=== PATIENT | male | born 1970 | race Caucasian/White ===

== ENCOUNTER 2016-10-11 14:44 | Inpatient (IN) | payer OTHER ==
[2016-10-12] MEDS ORDERED: ALPRAZolam 0.25 MG TAB ONE (07:07)
[2016-10-12 07:11] LABS: Glucose,Whole Blood 188 mg/dL (75-99)
[2016-10-12] MEDS ORDERED: ASPIRIN 325 MG TAB PO ONE (07:30)
[2016-10-12] MEDS ORDERED: ALPRAZolam 0.25 MG TAB PO PRN (07:33)
[2016-10-12] MEDS ORDERED: NITROGLYCERIN SL TABS 0.4 MG TAB SUBLINGUAL PRN ×2 (07:33→09:33)
[2016-10-12] MEDS ORDERED: ALPRAZolam 0.5 MG TAB PO PRN (07:33)
[2016-10-12] MEDS ORDERED: SODIUM CHLORIDE 0.9% 1,000 ML in EMPTY BAG 1 BAG IV ONE (07:33)
[2016-10-12] MEDS ORDERED: ASPIRIN 325 MG TAB PO STA (07:35)
[2016-10-12] MEDS ORDERED: ATORVASTATIN 80 MG TAB PO STA (07:36)
[2016-10-12] MEDS ORDERED: LISINOPRIL 20 MG TAB PO STA (08:11)
[2016-10-12] MEDS ORDERED: diphenhydrAMINE 50 MG/ML 1 ML VIAL IVP ONE (08:27)
[2016-10-12] MEDS ORDERED: fentaNYL (PF) 50 MCG/ML 2 ML AMP IV ONE (08:28)
[2016-10-12] MEDS ORDERED: LIDOCAINE 2% INJ 20 MG/ML SQ ONE (08:29)
[2016-10-12] MEDS ORDERED: VERAPAMIL SYRINGE (5 MG/10 ML) INTRAARTER ONE (08:30)
[2016-10-12] MEDS ORDERED: MIDAZOLAM 2 MG/2 ML VIAL IV ONE (08:35)
[2016-10-12] MEDS ORDERED: BIVALIRUDIN BOLUS 250 MG/50 ML IV ONE (08:47)
[2016-10-12] MEDS ORDERED: BIVALIRUDIN 250 MG in SODIUM CHLORIDE 0.9% 50 ML IV ONE (08:48)
[2016-10-12] MEDS ORDERED: PRASUGREL 10 MG TAB PO ONE (08:52)
[2016-10-12] MEDS: NITROGLYCERIN 1000MCG/10ML SYRINGE INTRACORON ONE ×2 (08:55→09:12)
[2016-10-12] MEDS ORDERED: IOHEXOL 350 MG/ML 100 ML BOTTLE INJ ONE (09:32)
[2016-10-12] MEDS ORDERED: ATROPINE SULFATE 0.1 MG/ML 10ML SYRINGE IV PRN (09:33)
[2016-10-12] MEDS ORDERED: MAG HYDROX/AL HYDROX/SIMETH 30 ML CUP PO PRN (09:33)
[2016-10-12] MEDS ORDERED: ZOLPIDEM 5 MG TAB PO PRN (09:33)
[2016-10-12] MEDS ORDERED: RX INFO: IV CONTRAST WAS GIVEN 1 EACH MISC MISCELLANE PRN (09:33)
[2016-10-12] MEDS ORDERED: SODIUM CHLORIDE 0.9% 1,000 ML IV SCH (09:45)
--- NOTE | 2016-10-12 10:08 | PTCA ---
DATE OF SERVICE: Mr. Mathews is a 46-year-old male with a history of hypertension, hyperlipidemia, diabetes mellitus, chronic tobacco use and strong family history of coronary artery disease, who presented with symptoms of new onset unstable angina, underwent cardiac catheterization, was found to have critical stenosis involving the proximal LAD and mid right coronary artery. In view of that, recommendation was made regarding angioplasty and stenting. The procedure as well as risks and complications were discussed with the patient, who is in full understanding and agreement. PROCEDURE: A 6 [place] Citizen FL 3.5 guiding catheter introduced into the system after cannulating the left main, a 0.014 Advanced medium-weight J-wire was advanced across the lesion, positioned distally, then a 2.5 x 15 mm trek balloon was advanced, one inflation at 8 atmospheres was done. Following that, the balloon was removed and a 3.5 x 15 mm Xience Alpine stent was deployed, postdilated at 14 atmospheres. After the last inflation, after appropriate wait, the balloon and guidewire were withdrawn back in the guiding catheter. Images were obtained and repeated. Those images reveal stable successful stenting. At that point, the guiding catheter, the balloon and the guidewire were removed, and a 6 [place] Citizen 4 Bend FR guiding catheter introduced into the system after cannulating the right coronary ostium. A 0.014 Advanced medium-weight J-wire was advanced across the lesion, positioned distally, then a 2.5 x 12 mm trek balloon was advanced, one inflation at 10 atmospheres was done. Following that, the balloon was removed, and a 3.0 x 15 mm Xience Alpine stent was deployed, postdilated to 16 atmospheres. After the last inflation, after appropriate wait, the balloon and the guidewire were withdrawn back into the guiding catheter. Images were obtained and repeated. Those images reveal stable successful stenting. At that point, the guiding catheter, the balloon and the guidewire were removed, the sheath was removed. Hemostasis was obtained with deployment of a TR band. There were no immediate complication. Patient is returned to his room in stable condition. Of note, the patient received Angiomax per protocol as well as oral loading dose of Effient. He had chest pain and EKG changes with the inflation of the LAD that resolved. RESULTS: 1. Successful stenting of the proximal LAD with reduction in stenosis from 99% to 0%. 2. Successful stenting of the mid-right coronary artery with reduction in stenosis from 90% to 0%. RECOMMENDATION: Patient will be continued on aspirin, Effient, beta ambar, DONTE inhibitor and statin. The importance of dual antiplatelet treatment as well as smoking cessation was discussed with the patient and his family who are in full understanding and agreement. The duration of procedure is 60 minutes. MTDD
--- NOTE | 2016-10-12 10:11 | LTR ---
October 12, 2016 RE: BisiLita Dear Dr. Vazquez; I had the pleasure to perform cardiac catheterization and coronary angioplasty and stenting on Mr. Mathews at [facility] on October 12, 2016 and a full copy of the procedure note will be forwarded to you. In brief, he was found to have critical stenosis involving the proximal LAD and the mid-right coronary artery and he underwent successful stenting of both vessels using a drug-eluting stent. I am hopeful that this procedure will stabilize his status and I would recommend to continue dual antiplatelet treatment for at least one year uninterrupted. I will keep you updated on his progress. Thank you again for allowing me to participate in this patient's care. Please feel free to call for any questions. Sincerely yours, CHASE COUCH MD
--- NOTE | 2016-10-12 10:18 | CC ---
DATE OF SERVICE: Mr. Mathews is a 46-year-old male with known history of hypertension, hyperlipidemia, diabetes mellitus, chronic tobacco use, and a strong family history of coronary artery disease, who presented to [facility] with progressive symptoms of exertional chest discomfort. In view of that, recommendation was made regarding cardiac catheterization. The procedure as well as risks and complications were discussed with the patient who is in full understanding and agreement. PROCEDURE: The patient was brought to the lab scientist in a fasting semi-sedated state after receiving fentanyl with Benadryl and achieved moderate conscious sedated state, using Xylocaine anesthesia and Seldinger technique, a 6 [place] sheath was introduced in the right radial artery. Selective right and left coronary angiography was performed using 5 [place], 3-1/2 Bend right and left Zachary catheters. Multiple views of the coronary arteries including hemiaxial views were obtained. Following that, a 5 [place] tight pigtail catheter was introduced in the left ventricle, and a 30-degree CODY view of the left ventricle was obtained. Following that, catheters were removed. Images were reviewed. Of note, the patient received intra-arterial verapamil. FINDINGS: LEFT MAIN: This is a short-sized vessel bifurcating into left circumflex artery and left anterior descending artery. Left main coronary artery is without any obstructive coronary artery disease. LEFT ANTERIOR DESCENDING ARTERY: This is a large-size vessel reaching toward the apex and giving rise to a large diagonal branch in mid segment. The left anterior descending artery proximal to the take off of the first septal time checker has a 99% stenosis. There is mild plaque in the mid LAD. LEFT CIRCUMFLEX: This is a large nondominant vessel, giving rise to 2 large obtuse marginal branch. The left circumflex as well as branches have no evidence of obstructive coronary artery disease. RIGHT CORONARY ARTERY: This is a large dominant vessel, giving rise to a PDA and posterolateral segment and branches. Distally in the midsegment take off of the acute marginal branch, there is a 90% stenosis. The rest of the vessel has no high-grade stenosis. LEFT VENTRICULOGRAM: Left ventriculogram was performed in 30-degree CODY view and revealed a normal left ventricular size and systolic function. The ejection fraction was 60%. HEMODYNAMICS: There was no gradient across the aortic valve. The left ventricular end-diastolic pressure was 20 mmHg. CONCLUSION: 1. Critical stenosis involving the proximal left anterior descending artery and the mid right coronary artery. 2. Normal left ventricular size and systolic function. RECOMMENDATIONS: In view of the findings and anatomy, I recommend proceeding with angioplasty and stenting. The procedure as well as risks and complications were discussed with the patient who is in full understanding and agreement.
[2016-10-12] MEDS ORDERED: HYDROcodone/APAP 5-325MG 1 EACH TAB ONE (11:12)
[2016-10-12] MEDS: METOPROLOL TARTRATE 25 MG TAB PO SCH ×2 (12:10→22:36)
[2016-10-12] MEDS ORDERED: INSULIN LISPRO SQ SCH (12:30)
[2016-10-12] MEDS: LISINOPRIL 20 MG TAB PO SCH (12:30)
[2016-10-12 12:46] LABS: Glucose,Whole Blood 333 mg/dL (75-99)
[2016-10-12 14:21] LABS: Glucose,Whole Blood 305 mg/dL (75-99)
[2016-10-12] MEDS: INSULIN LISPRO (humaLOG) 300 UNIT/3 ML VIAL SQ SCH ×3 (14:58→22:37)
[2016-10-12 16:55] LABS: Glucose,Whole Blood 314 mg/dL (75-99)
[2016-10-12] MEDS ORDERED: HYDROcodone/APAP 5-325MG 1 EACH TAB PO PRN (17:54)
[2016-10-12] MEDS ORDERED: INSULIN DETEMIR 100 UNIT/ML 10 ML VIAL SQ SCH (21:00)
[2016-10-12] MEDS ORDERED: ATORVASTATIN 80 MG TAB PO SCH (21:00)
[2016-10-12] MEDS ORDERED: METOPROLOL TARTRATE 25 MG TAB PO SCH (21:00)
[2016-10-12 21:24] LABS: Glucose,Whole Blood 231 mg/dL (75-99)
[2016-10-12] MEDS ORDERED: IBUPROFEN 800 MG TAB PO PRN (23:01)
[2016-10-13] MEDS: HYDROcodone/APAP 7.5-325MG 1 EACH TAB PO PRN ×2 (00:23→10:20)
[2016-10-13 06:20] LABS: Glucose,Whole Blood 175 mg/dL (75-99)
[2016-10-13 06:48] LABS: Basophils # (A) 0.1 k/uL (0-0.2); Basophils % (A) 1 %; CHCM 35.7; Eosinophils # (A) 0.4 k/uL (0-0.7); Eosinophils % (A) 4 %; HCT 41.4 % (39.0-53.0); HDW 2.94; HGB 14.3 gm/dL (13.0-17.5); Luc # (Auto) 0.39; Luc % (Auto) 5; Lymphocytes # (A) 2.9 k/uL (1.0-4.8); Lymphocytes % (A) 33 %; MCH 30.2 pg (25.0-35.0); MCHC 34.6 g/dL (31.0-37.0); MCV 87.4 fL (80.0-100.0); Mean Platelet Volume 6.3; Monocytes # (A) 0.4 k/uL (0-1.0); Monocytes % (A) 5 %; Neutrophils # (A) 4.7 k/uL (1.3-7.7); Neutrophils % (A) 54 %; RBC 4.74 m/uL (4.30-5.90); RDW 13.8 % (11.5-15.5); WBC 8.8 k/uL (3.8-10.6); WBC (Perox) 8.66
[2016-10-13] MEDS: INSULIN LISPRO (humaLOG) 300 UNIT/3 ML VIAL SQ SCH ×3 (06:58→17:01)
[2016-10-13 07:00] LABS: Anion Gap 8 mmol/L; Blood Urea Nitrogen 11 mg/dL (9-20); Calcium 8.7 mg/dL (8.4-10.2); Carbon Dioxide 26 mmol/L (22-30); Chloride 103 mmol/L (98-107); Cholesterol 130 mg/dL (<200); Glucose 157 mg/dL (74-99); HDL Cholesterol 24 mg/dL (40-60); Non-African American GFR(MDRD) >60 (>60 ml/min/1.73 sqM); Potassium 3.9 mmol/L (3.5-5.1); Sodium 137 mmol/L (137-145)
[2016-10-13 07:09] LABS: Triglycerides 544 mg/dL (<150)
[2016-10-13] MEDS ORDERED: glipiZIDE 10 MG TAB PO SCH (07:30)
[2016-10-13] MEDS: LISINOPRIL 20 MG TAB PO SCH (08:44)
[2016-10-13] MEDS: METOPROLOL TARTRATE 25 MG TAB PO SCH (08:44)
[2016-10-13] MEDS ORDERED: PRASUGREL 10 MG TAB PO SCH (09:00)
[2016-10-13] MEDS ORDERED: ASPIRIN 81 MG CHEW PO SCH (09:00)
[2016-10-13] MEDS ORDERED: LISINOPRIL 20 MG TAB PO SCH (09:00)
[2016-10-13] MEDS ORDERED: NICOTINE 21MG/24HR PATCH TRANSDERM SCH (09:00)
[2016-10-13 09:56] LABS: Hemoglobin A1C 10.6 % (4.2-6.1)
--- NOTE | 2016-10-13 10:55 | HP ---
DATE OF ADMISSION: 10/12/2016 CHIEF COMPLAINT: Chest pain and transferred from [facility]. HISTORY OF PRESENT ILLNESS: Mr. Mathews is a [id number] male with a known history of type 2 diabetes mellitus, uncontrolled, with hemoglobin A1c of 11.3, hyperlipidemia, and nicotine addiction. He came to the hospital with complaints of chest discomfort, which has been present over the past few days. Patient is having exertional chest pain, which is mainly in the left of the chest and radiating to the back. No associated nausea or vomiting. No orthopnea. No PND. The patient has a prior history of coronary artery disease. Patient was seen by cardiology and also has a history of significant coronary artery disease in father. The patient was initially admitted to [facility] and was transferred to [facility] for cardiac catheterization. The patient underwent cardiac catheterization which showed critical stenosis involving the proximal left anterior descending artery and mid right coronary artery. The patient underwent successful CONTINUOUS IMPROVEMENT ENGINEER. The 2D echo at [facility] showed ejection fraction 55% to 60%, mild concentric left ventricular hypertrophy. Otherwise the patient currently denied any complaints of chest pain now. No nausea or vomiting. No fevers or chills. REVIEW OF SYSTEMS: CONSTITUTIONAL: No fevers, no chills. RESPIRATORY: No cough or sputum production. CARDIOVASCULAR: No chest pain or shortness of breath. ABDOMEN: No nausea, vomiting or abdominal pain. : Negative. ENDOCRINE: Negative. PSYCHIATRY: Negative. SKIN: Negative. MUSCULOSKELETAL: Negative. All other fourteen-point review of systems negative except as above. PAST MEDICAL HISTORY: 1. Diabetes mellitus type 2, [id number]. 2. Hyperlipidemia. 3. Hypertension. PAST SURGICAL HISTORY: None. FAMILY HISTORY: Coronary artery disease in father. SOCIAL HISTORY: Patient has been smoking cigarettes, 1 pack per day. Denied alcohol, drugs or IVDU. Denied any marijuana use. Home medications include: 1. Aspirin. 2. Glipizide. 3. Lisinopril. PHYSICAL EXAMINATION: A 46-year-old male, lying in bed, oriented x3, no apparent distress. VITALS: Blood pressure is 127/74, pulse is 73, respirations 18, pulse ox 96% on room air. HEENT: Atraumatic, normocephalic. NECK: Supple. No JVD. CVS: S1, S2 heard. No murmurs or gallop, no rub. LUNGS: Bilateral air entry is present. No wheezing. No crackles. Nonlabored breathing. ABDOMEN: Soft, nontender. EXTREMITIES: No edema. Pulses palpable bilaterally. No clubbing or cyanosis. ELECTRICAL ENGINEERING MANAGER: Awake, alert, oriented x3. No focal neurological deficits. Cranial nerves grossly intact. PSYCHIATRIC: Cooperative. LABORATORY DATA: Reviewed from [facility]. HbA1c of 11.3 with average blood sugar of 277 IMPRESSION: 1. Unstable angina, status post cardiac catheterization showing critical stenosis involving the proximal left anterior descending and mid right coronary artery, status post successful CONTINUOUS IMPROVEMENT ENGINEER. 2. Uncontrolled diabetes mellitus with hemoglobin A1c of 11.3. 3. Hypertension. 4. Hyperlipidemia. 5. Nicotine addiction, trying to quit. DISCUSSION AND PLAN: Continue on aspirin, prasugrel and statins. The patient is also started on Zestril las well as metoprolol. Sliding scale insulin dosing. The patient is also on glipizide. Follow up closely. Cardiology is on board. Further recommendations based on the clinical course.
[2016-10-13 11:39] VITALS: BMI 36.0
[2016-10-13 11:52] LABS: Glucose,Whole Blood 204 mg/dL (75-99)
[2016-10-13 12:14] VITALS: RESP 18
--- NOTE | 2016-10-13 12:32 | PN ---
Mr. Mathews is a 46-year-old male who presents with unstable angina to [facility], was transferred to [facility], underwent cardiac catheterization, was found to have critical stenosis involving the proximal LAD and mid right coronary artery, underwent stenting of both vessels. He is doing well this morning. He is denying any chest pain. His breathing has been stable. He has been ambulating without difficulty. He continues to be on aspirin once a day, Effient 10 mg daily, Lipitor 80 mg daily, lisinopril 20 mg daily, metoprolol tartrate 25 mg twice a day, glipizide, insulin and nicotine patch. PHYSICAL EXAMINATION: Blood pressure 122/70 with a heart rate in the 70s. LUNGS: Clear. HEART: Regular rate and rhythm. S1, S2, no S3, with systolic murmur heard at the base. No diastolic murmur. No rub. ABDOMEN: Soft, nontender. EXTREMITIES: No edema. Right radial pulse intact. EKG reveals sinus mechanism with no acute changes. Lab data revealed BUN and creatinine 11 and 0.54. Potassium 3.9. Hemoglobin 14.3. IMPRESSION: 1. Status post stenting of the left anterior descending artery and the right coronary artery. 2. Hypertension. 3. Hyperlipidemia. 4. Diabetes mellitus. 5. Chronic tobacco use. RECOMMENDATIONS: Patient will be discharged home today and followed as an outpatient. The importance of smoking cessation was discussed with the patient.
[2016-10-13] MEDS ORDERED: DIPHENOX-ATROP 2.5-0.025 MG 1 EACH TAB PO ONE (14:51)
[2016-10-13 16:43] VITALS: BP 130/71; PULSE 71; TEMP 97.7
[2016-10-13 16:47] LABS: Glucose,Whole Blood 194 mg/dL (75-99)
[2016-10-13] MEDS ORDERED: DIPHENOX-ATROP 2.5-0.025 MG 1 EACH TAB PO PRN (21:00)
--- NOTE | 2016-10-15 10:52 | DS ---
DATE OF ADMISSION: 10/12/2016 DATE OF DISCHARGE: 10/13/2016 DISCHARGE DIAGNOSES: 1. Unstable angina, status post cardiac catheterization showing critical stenosis involving the proximal left anterior descending and mid-right coronary artery, status post percutaneous transluminal coronary angioplasty. 2. Uncontrolled diabetes mellitus, hemoglobin A1c of 11.3. 3. Hypertension. 4. Hyperlipidemia. 5. Nicotine addiction. HOSPITAL COURSE: Mr. Mathews is a 46-year-old male with history of uncontrolled diabetes mellitus, admitted to the hospital with complaints of chest pressure which is exertional, but no associated nausea or vomiting. The patient does have chest pain and radiation to the left arm and to the back. No PND. The patient was suspected to have unstable angina. The patient was initially admitted to the hospital at [facility] and was transferred to [facility] for further evaluation and cardiac catheterization. He had successful stenting of the mid-right coronary artery and proximal LAD. The patient tolerated the procedure well. Heart rate is better controlled now. Lantus dose has been increased and the patient was started on sliding scale as well, for better blood sugar control. The patient was advised to quit smoking. He was educated for diabetic control as well. The patient was recommended for adjustment in insulin further. The pain is chest pain free now. Cardiology has cleared the patient and he will be discharged home in stable condition. DISCHARGE EXAMINATION: A 46-year-old male, lying in bed comfortably, awake, alert, oriented x3. The patient is in no apparent distress. VITAL SIGNS: Blood pressure is 130/71, pulse is 71, respirations 18, temperature afebrile, pulse ox 96% on room air. HEENT: Atraumatic, normocephalic. NECK: Supple, no JVD. HEENT: No conjunctival pallor. LUNGS: Good bilateral air entry. ABDOMEN: Soft, nontender. No masses palpable. DISCHARGE MEDICATIONS: 1. Tylenol 325 mg every 4 hours p.r.n. pain. 2. Ballard 5/325 every 4 hours p.r.n. pain. 3. Levemir 45 units at bedtime. 4. Zestril 20 mg p.o. daily. 5. Nicotine patch 1 patch transdermally. 6. Glipizide 10 mg with breakfast. 7. Aspirin 81 mg p.o. daily. 8. Atorvastatin 80 mg at bedtime. 9. NovoLog sliding scale per protocol. 10. Metoprolol 25 mg p.o. b.i.d. 11. Nitroglycerin 0.4 mg sublingual every 4 hours p.r.n. chest pain. 12. Prasugrel 10 mg p.o. daily. The patient is being discharged home in stable condition. ACTIVITY: As tolerated. DIET: Heart healthy diet. FOLLOWUP: 1. The patient will follow up with Dr. Camarillo in 2 weeks. 2. Follow up with primary care physician in 1 to 2 days.
== END 2016-10-13 18:23 | disposition home or self-care (01) | DRG 247 ==
LOC: 6SEL 10-12 08:09
PROVIDERS: ADMIT Hospitalist; ATTEND Hospitalist
PROC: B2151ZZ Fluoroscopy of Left Heart using Low Osmolar Contrast (ICD-10-PCS; 2016-10-12)
PROC: 027135Z Dilation of Coronary Artery, Two Arteries with Two Drug-eluting Intraluminal Devices, Percutaneous Approach (ICD-10-PCS; principal; 2016-10-12 08:17)
PROC: 4A023N7 Measurement of Cardiac Sampling and Pressure, Left Heart, Percutaneous Approach (ICD-10-PCS; 2016-10-12 08:17)
PROC: B2111ZZ Fluoroscopy of Multiple Coronary Arteries using Low Osmolar Contrast (ICD-10-PCS; 2016-10-12 08:17)
DX: I25.110 Atherosclerotic heart disease of native coronary artery with unstable angina pectoris (principal); E11.65 Type 2 diabetes mellitus with hyperglycemia; I11.9 Hypertensive heart disease without heart failure; E78.5 Hyperlipidemia, unspecified; R01.1 Cardiac murmur, unspecified; F17.210 Nicotine dependence, cigarettes, uncomplicated; Z82.49 Family history of ischemic heart disease and other diseases of the circulatory system; Z79.899 Other long term (current) drug therapy; Z79.84 Long term (current) use of oral hypoglycemic drugs; Z79.82 Long term (current) use of aspirin; Z71.3 Dietary counseling and surveillance; Z71.89 Other specified counseling
CPT/HCPCS: 80048; 80061; 83036; 85025; 93458

== ENCOUNTER 2017-03-28 16:07 | Observation (INO) | payer OTHER ==
[2017-03-28] MEDS ORDERED: NITROGLYCERIN OINT 1 INCH/GM PACKET TOPICAL STA (16:32)
[2017-03-28] MEDS ORDERED: ASPIRIN 81 MG PO STA (16:32)
--- NOTE | 2017-03-28 16:34 | ED ---
General Adult HPI - General Chief complaint: Chest Pain Stated complaint: Chest Pain Time Seen by Provider: 03/28/17 16:29 Source: patient, RN notes reviewed Mode of arrival: wheelchair Limitations: no limitations - History of Present Illness Initial comments: Patient is a pleasant 47-year-old male presenting to the emergency Department with chest discomfort. Patient did have 2 stents placed back in September. Discomfort started following riding his bike and participating in rehab today. Patient had sharp discomfort in his chest without radiation. No associated dyspnea, nausea, or diaphoresis. Discomfort is near resolved at this time. Discomfort was mild to moderate earlier. - Related Data Home Medications Medication Instructions Recorded Confirmed Insulin Detemir [Levemir] 50 unit SQ HS 10/12/16 03/28/17 Lisinopril [Zestril] 20 mg PO DAILY 10/12/16 03/28/17 Nicotine 21Mg/24Hr Patch [Habitrol] 1 patch TRANSDERM DAILY 10/12/16 03/28/17 glipiZIDE [Glucotrol] 10 mg PO BID 10/12/16 03/28/17 Albuterol Sulfate [Proair Hfa] 2 puff INHALATION RT-QID PRN 03/28/17 03/28/17 Cholecalciferol [Vitamin D3] 1,000 unit PO DAILY 03/28/17 03/28/17 Clopidogrel [Plavix] 75 mg PO DAILY 03/28/17 03/28/17 Loratadine [Claritin] 10 mg PO DAILY 03/28/17 03/28/17 Naproxen [Naprosyn] 500 mg PO BID PRN 03/28/17 03/28/17 traMADol HCL [Ultram] 50 mg PO TID PRN 03/28/17 03/28/17 Previous Rx's Medication Instructions Recorded Aspirin 81 mg PO DAILY chew 10/13/16 Atorvastatin [Lipitor] 80 mg PO HS #90 tab 10/13/16 Insulin Aspart [NovoLOG] See Protocol SQ TID-W/MEALS #1 vial 10/13/16 Metoprolol Tartrate [Lopressor] 25 mg PO BID #180 tab 10/13/16 Allergies Allergy/AdvReac Type Severity Reaction Status Date / Time No Known Allergies Allergy Verified 03/28/17 17:58 Review of Systems ROS Statement: Those systems with pertinent positive or pertinent negative responses have been documented in the HPI. ROS Other: All systems not noted in ROS Statement are negative. Constitutional: Denies: fever Eyes: Denies: eye pain ENT: Denies: ear pain Respiratory: Denies: cough, dyspnea Cardiovascular: Reports: chest pain Endocrine: Denies: fatigue Gastrointestinal: Denies: abdominal pain Genitourinary: Denies: dysuria Musculoskeletal: Denies: back pain Skin: Denies: rash Neurological: Denies: weakness Past Medical History Past Medical History: Coronary Artery Disease (CAD), Chest Pain / Angina, Diabetes Mellitus, Hyperlipidemia History of Any Multi-Drug Resistant Organisms: None Reported Past Surgical History: Heart Catheterization With Stent, Orthopedic Surgery Past Anesthesia/Blood Transfusion Reactions: No Reported Reaction Past Psychological History: No Psychological Hx Reported Smoking Status: Current every day smoker Past Alcohol Use History: Rare Past Drug Use History: None Reported - Past Family History Father Family Medical History: Coronary Artery Disease (CAD) Additional Family Medical History / Comment(s): Greatgrandmother had diabetes General Exam Limitations: no limitations General appearance: alert, in no apparent distress Head exam: Present: atraumatic Eye exam: Present: normal appearance, PERRL ENT exam: Present: normal oropharynx Neck exam: Present: normal inspection Respiratory exam: Present: normal lung sounds bilaterally. Absent: chest wall tenderness Cardiovascular Exam: Present: regular rate, normal rhythm Expanded Peripheral pulses: 2+: Radial (R), Radial (L), Posterior Tibialis (R), Posterior Tibialis (L) GI/Abdominal exam: Present: soft. Absent: tenderness Extremities exam: Present: normal inspection. Absent: pedal edema, calf tenderness Neurological exam: Present: alert Psychiatric exam: Present: normal affect, normal mood Skin exam: Present: normal color Course Vital Signs 03/28/17 03/28/17 03/28/17 16:09 17:16 17:37 Temperature 97.7 F 97.9 F Pulse Rate 73 63 64 Respiratory 20 18 18 Rate Blood Pressure 114/67 107/64 135/84 O2 Sat by Pulse 98 98 96 Oximetry EKG Findings - EKG Comments: EKG Findings:: Normal sinus rhythm 68. IA 142. QRS 84. QT 364. QTC 37. Normal axis. Normal QRS. No acute ST change. Medical Decision Making - Medical Decision Making Patient reevaluated and resting comfortably in bed. No complaint at this time. Patient updated on results and plan. Dr. Rajput has been paged for admission. - Lab Data Result diagrams: 03/28/17 16:21 03/28/17 16:21 Lab Results 03/28/17 03/28/17 03/28/17 Range/Units 16:21 16:21 16:21 WBC 11.4 H (3.8-10.6) k/uL RBC 5.36 (4.30-5.90) m/uL Hgb 16.9 (13.0-17.5) gm/dL Hct 48.5 (39.0-53.0) % MCV 90.5 (80.0-100.0) fL MCH 31.5 (25.0-35.0) pg MCHC 34.8 (31.0-37.0) g/dL RDW 13.8 (11.5-15.5) % Plt Count 269 (150-450) k/uL Neutrophils % 60 % Lymphocytes % 28 % Monocytes % 6 % Eosinophils % 2 % Basophils % 1 % Neutrophils # 6.9 (1.3-7.7) k/uL Lymphocytes # 3.2 (1.0-4.8) k/uL Monocytes # 0.7 (0-1.0) k/uL Eosinophils # 0.2 (0-0.7) k/uL Basophils # 0.1 (0-0.2) k/uL PT (9.0-12.0) sec INR (<1.2) APTT (22.0-30.0) sec Sodium 135 L (137-145) mmol/L Potassium 4.7 (3.5-5.1) mmol/L Chloride 101 (98-107) mmol/L Carbon Dioxide 20 L (22-30) mmol/L Anion Gap 14 mmol/L BUN 15 (9-20) mg/dL Creatinine 0.60 L (0.66-1.25) mg/dL Est GFR (MDRD) Af Amer >60 (>60 ml/min/1.73 sqM) Est GFR (MDRD) Non-Af >60 (>60 ml/min/1.73 sqM) Glucose 315 H (74-99) mg/dL Calcium 9.4 (8.4-10.2) mg/dL Magnesium 1.5 L (1.6-2.3) mg/dL Total Bilirubin 0.5 (0.2-1.3) mg/dL AST 29 (17-59) U/L ALT 51 (21-72) U/L Alkaline Phosphatase 102 (38-126) U/L Total Creatine Kinase 140 (55-170) U/L CK-MB (CK-2) 1.4 (0.0-2.4) ng/mL CK-MB (CK-2) Rel Index 1.0 Troponin I <0.012 (0.000-0.034) ng/mL Total Protein 6.7 (6.3-8.2) g/dL Albumin 4.3 (3.5-5.0) g/dL 03/28/17 Range/Units 16:21 WBC (3.8-10.6) k/uL RBC (4.30-5.90) m/uL Hgb (13.0-17.5) gm/dL Hct (39.0-53.0) % MCV (80.0-100.0) fL MCH (25.0-35.0) pg MCHC (31.0-37.0) g/dL RDW (11.5-15.5) % Plt Count (150-450) k/uL Neutrophils % % Lymphocytes % % Monocytes % % Eosinophils % % Basophils % % Neutrophils # (1.3-7.7) k/uL Lymphocytes # (1.0-4.8) k/uL Monocytes # (0-1.0) k/uL Eosinophils # (0-0.7) k/uL Basophils # (0-0.2) k/uL PT 10.5 (9.0-12.0) sec INR 1.0 (<1.2) APTT 25.0 (22.0-30.0) sec Sodium (137-145) mmol/L Potassium (3.5-5.1) mmol/L Chloride (98-107) mmol/L Carbon Dioxide (22-30) mmol/L Anion Gap mmol/L BUN (9-20) mg/dL Creatinine (0.66-1.25) mg/dL Est GFR (MDRD) Af Amer (>60 ml/min/1.73 sqM) Est GFR (MDRD) Non-Af (>60 ml/min/1.73 sqM) Glucose (74-99) mg/dL Calcium (8.4-10.2) mg/dL Magnesium (1.6-2.3) mg/dL Total Bilirubin (0.2-1.3) mg/dL AST (17-59) U/L ALT (21-72) U/L Alkaline Phosphatase (38-126) U/L Total Creatine Kinase (55-170) U/L CK-MB (CK-2) (0.0-2.4) ng/mL CK-MB (CK-2) Rel Index Troponin I (0.000-0.034) ng/mL Total Protein (6.3-8.2) g/dL Albumin (3.5-5.0) g/dL - Radiology Data Radiology results: image reviewed (Chest x-ray shows no acute process) Disposition Clinical Impression: Chest pain Disposition: ADMITTED IP TO THIS [facility] Referrals: Marcos Vazquez MD [Primary Care Provider] - 1-2 days Decision Time: 19:09
[2017-03-28 17:01] LABS: Basophils # (A) 0.1 k/uL (0-0.2); Basophils % (A) 1 %; CH 30.7; CHCM 34.1; Eosinophils # (A) 0.2 k/uL (0-0.7); Eosinophils % (A) 2 %; HCT 48.5 % (39.0-53.0); HDW 2.76; HGB 16.9 gm/dL (13.0-17.5); Luc # (Auto) 0.47; Luc % (Auto) 4; Lymphocytes # (A) 3.2 k/uL (1.0-4.8); Lymphocytes % (A) 28 %; MCH 31.5 pg (25.0-35.0); MCHC 34.8 g/dL (31.0-37.0); MCV 90.5 fL (80.0-100.0); Monocytes # (A) 0.7 k/uL (0-1.0); Monocytes % (A) 6 %; Neutrophils # (A) 6.9 k/uL (1.3-7.7); Neutrophils % (A) 60 %; RBC 5.36 m/uL (4.30-5.90); RDW 13.8 % (11.5-15.5); WBC 11.4 k/uL (3.8-10.6)
[2017-03-28 17:05] LABS: Prothrombin Time 10.5 sec (9.0-12.0)
[2017-03-28 17:07] LABS: ALT 51 U/L (21-72); AST 29 U/L (17-59); Alkaline Phosphatase 102 U/L (38-126); Anion Gap 14 mmol/L; Blood Urea Nitrogen 15 mg/dL (9-20); Calcium 9.4 mg/dL (8.4-10.2); Carbon Dioxide 20 mmol/L (22-30); Chloride 101 mmol/L (98-107); Glucose 315 mg/dL (74-99); Magnesium 1.5 mg/dL (1.6-2.3); Non-African American GFR(MDRD) >60 (>60 ml/min/1.73 sqM); Potassium 4.7 mmol/L (3.5-5.1); Sodium 135 mmol/L (137-145); Total Bilirubin 0.5 mg/dL (0.2-1.3); Total Protein 6.7 g/dL (6.3-8.2)
[2017-03-28 17:08] LABS: Creatine Kinase 140 U/L (55-170)
--- NOTE | 2017-03-28 17:09 | XR ---
EXAMINATION TYPE: XR chest 2V DATE OF EXAM: 03/28/2017 COMPARISON: NONE HISTORY: Chest pain TECHNIQUE: Frontal and lateral views of the chest are obtained. FINDINGS: There is no focal air space opacity. No evidence for pneumothorax. No pleural effusion. The cardiac silhouette size is within normal limits. The osseous structures are grossly intact. IMPRESSION: 1. No acute cardiopulmonary process.
[2017-03-28 17:22] LABS: Creatine Kinase MB 1.4 ng/mL (0.0-2.4); Troponin I <0.012 ng/mL (0.000-0.034)
[2017-03-28] MEDS ORDERED: NITROGLYCERIN SL TABS 0.4 MG TAB SUBLINGUAL PRN (19:09)
[2017-03-28] MEDS ORDERED: NICOTINE 14MG/24HR PATCH TRANSDERM STA (19:10)
[2017-03-28 20:49] VITALS: BMI 35.4
[2017-03-28 21:26] LABS: Glucose,Whole Blood 268 mg/dL (75-99)
[2017-03-28] MEDS ORDERED: INSULIN DETEMIR 100 UNIT/ML 10 ML VIAL SQ SCH (21:30)
[2017-03-28] MEDS ORDERED: traMADol 50 MG TAB PO PRN (21:30)
[2017-03-28] MEDS ORDERED: ALBUTEROL NEBULIZED 2.5 MG/3 ML INHALATION PRN (21:30)
[2017-03-28 22:58] LABS: Creatine Kinase 119 U/L (55-170)
[2017-03-28 23:10] LABS: Creatine Kinase MB 1.2 ng/mL (0.0-2.4); Troponin I <0.012 ng/mL (0.000-0.034)
[2017-03-29] MEDS: NITROGLYCERIN OINT 1 INCH/GM PACKET TOPICAL SCH ×2 (00:18→05:24)
[2017-03-29 04:09] LABS: Cholesterol 73 mg/dL (<200); HDL Cholesterol 24 mg/dL (40-60)
[2017-03-29 04:34] LABS: Creatine Kinase 110 U/L (55-170)
[2017-03-29 04:46] LABS: Creatine Kinase MB 0.9 ng/mL (0.0-2.4); Troponin I <0.012 ng/mL (0.000-0.034)
[2017-03-29 06:59] LABS: Glucose,Whole Blood 193 mg/dL (75-99)
[2017-03-29] MEDS ORDERED: glipiZIDE 10 MG TAB PO SCH (07:30)
[2017-03-29] MEDS: INSULIN LISPRO (humaLOG) 300 UNIT/3 ML VIAL SQ SCH ×2 (08:27→12:00)
[2017-03-29 08:30] VITALS: RESP 18; TEMP 97.9
[2017-03-29] MEDS ORDERED: ALPRAZolam 0.25 MG TAB PO PRN (08:45)
[2017-03-29] MEDS ORDERED: SODIUM CHLORIDE 0.9% 1,000 ML in EMPTY BAG 1 BAG IV ONE (08:45)
[2017-03-29] MEDS ORDERED: ALPRAZolam 0.5 MG TAB PO PRN (08:45)
[2017-03-29] MEDS ORDERED: LORATADINE 10 MG TAB PO SCH (09:00)
[2017-03-29] MEDS ORDERED: ASPIRIN 325 MG TAB PO SCH (09:00)
[2017-03-29] MEDS ORDERED: LISINOPRIL 20 MG TAB PO SCH (09:00)
[2017-03-29] MEDS ORDERED: CLOPIDOGREL 75 MG TAB PO SCH (09:00)
[2017-03-29] MEDS ORDERED: METOPROLOL TARTRATE 25 MG TAB PO SCH (09:00)
[2017-03-29] MEDS ORDERED: HEPARIN SODIUM,PORCINE 5,000 UNIT/ML 1 ML VIAL IV PRN (09:13)
[2017-03-29] MEDS ORDERED: HEPARIN SODIUM,PORCINE 5,000 UNIT/ML 1 ML VIAL IV ONE (09:13)
[2017-03-29] MEDS ORDERED: HEPARIN SODIUM,PORCINE/D5W PMX 25,000 UNIT in DEXTROSE/WATER 1 500ML.BAG IV SCH (09:15)
--- NOTE | 2017-03-29 09:18 | P.CRDCN ---
History of Present Illness Consult date: 03/29/17 History of present illness: This is a 47-year-old male patient of Dr. marko gunn. Past medical history significant for coronary artery disease with 2 stents 1 to the proximal LAD second to the mid RCA in September 2016, essential hypertension, diabetes mellitus and hyperlipidemia. The patient is also a chronic every day smoker. He presented to the emergency room with complaints of chest heaviness and shortness of breath although exercising yesterday. He states he has been doing regular exercise after his heart attack 2 loose some weight and attempts to deliver healthier lifestyle. He states he was riding his bike which he doesn't a regular basis and decided to exert himself further by choosing a new machine for exercise. Upon starting this new exercise he started getting midsternal precordial chest pressure associated with shortness of breath and he felt his heart was racing. He denies dizziness, diaphoresis, nausea, vomiting or radiation of the pain. He denies any associated cough or fever/chills. He states he stopped his exercise and the pain began to subside. He has had no further episodes of chest pain since presenting to the hospital. He has been compliant with all medications. He has maintained a sinus mechanism on telemetry. EKG reveals sinus mechanism with no acute ST or T wave abnormalities when compared to old EKG. Cardiac enzymes are negative. Triglycerides 290, BUS and 15, creatinine 0.6, potassium 4.7, magnesium 1.5, hemoglobin 16.9, platelets 269. Blood pressure 105/70 with a heart rate of 67 and 95% oxygen saturation on room air Review of Systems Extensive review of systems performed, negative except mentioned in HPI. Past Medical History Past Medical History: Coronary Artery Disease (CAD), Chest Pain / Angina, Diabetes Mellitus, Hyperlipidemia History of Any Multi-Drug Resistant Organisms: None Reported Past Surgical History: Heart Catheterization With Stent, Orthopedic Surgery Additional Past Surgical History / Comment(s): stents placed to LAD and RCA 2016 Past Anesthesia/Blood Transfusion Reactions: No Reported Reaction Date of Last Stent Placement:: 09/2016 Past Psychological History: No Psychological Hx Reported Smoking Status: Current every day smoker Past Alcohol Use History: Rare Additional Past Alcohol Use History / Comment(s): Drinks alcohol around holidays Past Drug Use History: None Reported - Past Family History Father Family Medical History: Coronary Artery Disease (CAD) Additional Family Medical History / Comment(s): Radha had diabetes Medications and Allergies Home Medications Medication Instructions Recorded Confirmed Type Insulin Detemir [Levemir] 50 unit SQ HS 10/12/16 03/28/17 History Lisinopril [Zestril] 20 mg PO DAILY 10/12/16 03/28/17 History Nicotine 21Mg/24Hr Patch [Habitrol] 1 patch TRANSDERM DAILY 10/12/16 03/28/17 History glipiZIDE [Glucotrol] 10 mg PO BID 10/12/16 03/28/17 History Aspirin 81 mg PO DAILY chew 10/13/16 03/28/17 Rx Atorvastatin [Lipitor] 80 mg PO HS #90 tab 10/13/16 03/28/17 Rx Insulin Aspart [NovoLOG] See Protocol SQ TID-W/MEALS #1 vial 10/13/16 03/28/17 Rx Metoprolol Tartrate [Lopressor] 25 mg PO BID #180 tab 10/13/16 03/28/17 Rx Albuterol Sulfate [Proair Hfa] 2 puff INHALATION RT-QID PRN 03/28/17 03/28/17 History Cholecalciferol [Vitamin D3] 1,000 unit PO DAILY 03/28/17 03/28/17 History Clopidogrel [Plavix] 75 mg PO DAILY 03/28/17 03/28/17 History Loratadine [Claritin] 10 mg PO DAILY 03/28/17 03/28/17 History Naproxen [Naprosyn] 500 mg PO BID PRN 03/28/17 03/28/17 History traMADol HCL [Ultram] 50 mg PO TID PRN 03/28/17 03/28/17 History Allergies Allergy/AdvReac Type Severity Reaction Status Date / Time No Known Allergies Allergy Verified 03/28/17 17:58 Physical Exam Vitals: Vital Signs Temp Pulse Pulse Resp BP BP Pulse Ox 03/29/17 08:00 97.9 F 67 18 105/70 95 03/29/17 04:00 98.0 F 78 16 109/62 96 03/29/17 03:21 67 16 03/29/17 00:00 97.7 F 68 16 102/55 97 03/28/17 21:00 72 18 03/28/17 20:26 97.5 F L 72 18 110/62 96 03/28/17 19:16 97.4 F L 87 18 114/86 98 03/28/17 17:37 97.9 F 64 18 135/84 96 03/28/17 17:16 63 18 107/64 98 03/28/17 16:09 97.7 F 73 20 114/67 98 Intake and Output 03/28/17 03/29/17 03/29/17 22:59 06:59 14:59 Other: Voiding Method Toilet Toilet # Voids 2 Weight 99.6 kg GENERAL: Well-appearing, well-nourished and in no acute distress. Obese. NECK: Supple without JVD or thyromegaly. LUNGS: Breath sounds clear to auscultation bilaterally. Respiration equal and unlabored. No wheezes, rales or rhonchi. HEART: Regular rate and rhythm without murmurs, rubs or gallops. S1 and S2 heard. EXTREMITIES: Normal range of motion, no edema. No clubbing or cyanosis. Peripheral pulses intact and strong. Results 03/28/17 16:21 03/28/17 16:21 Cardiac Enzymes 03/28/17 03/28/17 03/28/17 Range/Units 16:21 16:21 22:16 AST 29 (17-59) U/L CK-MB (CK-2) 1.4 1.2 (0.0-2.4) ng/mL Troponin I <0.012 <0.012 (0.000-0.034) ng/mL 03/29/17 Range/Units 03:34 AST (17-59) U/L CK-MB (CK-2) 0.9 (0.0-2.4) ng/mL Troponin I <0.012 (0.000-0.034) ng/mL Coagulation 03/28/17 Range/Units 16:21 PT 10.5 (9.0-12.0) sec APTT 25.0 (22.0-30.0) sec Lipids 03/29/17 Range/Units 03:34 Triglycerides 290 H (<150) mg/dL Cholesterol 73 (<200) mg/dL HDL Cholesterol 24 L (40-60) mg/dL CBC 03/28/17 Range/Units 16:21 WBC 11.4 H (3.8-10.6) k/uL RBC 5.36 (4.30-5.90) m/uL Hgb 16.9 (13.0-17.5) gm/dL Hct 48.5 (39.0-53.0) % Plt Count 269 (150-450) k/uL Comprehensive Metabolic Panel 03/28/17 Range/Units 16:21 Sodium 135 L (137-145) mmol/L Potassium 4.7 (3.5-5.1) mmol/L Chloride 101 (98-107) mmol/L Carbon Dioxide 20 L (22-30) mmol/L BUN 15 (9-20) mg/dL Creatinine 0.60 L (0.66-1.25) mg/dL Glucose 315 H (74-99) mg/dL Calcium 9.4 (8.4-10.2) mg/dL AST 29 (17-59) U/L ALT 51 (21-72) U/L Alkaline Phosphatase 102 (38-126) U/L Total Protein 6.7 (6.3-8.2) g/dL Albumin 4.3 (3.5-5.0) g/dL Current Medications Generic Name Dose Route Start Last Admin Trade Name Freq PRN Reason Stop Dose Admin Albuterol Sulfate 2.5 mg 03/28/17 21:30 Ventolin Nebulized INHALATION RT-QID PRN Shortness Of Breath Alprazolam 0.25 mg 03/29/17 08:45 Xanax PO Q6HR PRN Mild Anxiety Alprazolam 0.5 mg 03/29/17 08:45 Xanax PO Q6HR PRN Moderate Anxiety Aspirin 325 mg 03/29/17 09:00 Aspirin PO DAILY [facility] Atorvastatin Calcium 80 mg 03/29/17 21:00 Lipitor PO HS [facility] Cholecalciferol 1,000 unit 03/29/17 12:00 Vitamin D3 PO 1200 [facility] Clopidogrel Bisulfate 75 mg 03/29/17 09:00 Plavix PO DAILY [facility] Glipizide 10 mg 03/29/17 07:30 Glucotrol PO BID-W/MEALS [facility] Insulin Detemir 50 unit 03/28/17 21:30 03/28/17 21:49 Levemir SQ 50 unit HS [facility] Administration Insulin Human Lispro 0 unit 03/29/17 07:30 03/29/17 08:27 Humalog SQ Not Given AC-TID [facility] Protocol Lisinopril 20 mg 03/29/17 09:00 Zestril PO DAILY [facility] Loratadine 10 mg 03/29/17 09:00 Claritin PO DAILY [facility] Metoprolol Tartrate 25 mg 03/29/17 09:00 Lopressor PO BID [facility] Nitroglycerin 1 inch 03/29/17 00:00 03/29/17 05:24 Nitro-Bid Oint TOPICAL Not Given Q6HR [facility] Nitroglycerin 0.4 mg 03/28/17 19:09 Nitrostat SUBLINGUAL Q5M PRN Chest Pain Sodium Chloride 10 ml 03/28/17 21:00 03/28/17 20:25 Saline Flush IV Not Given BID [facility] Tramadol HCl 50 mg 03/28/17 21:30 03/28/17 21:55 Ultram PO 50 mg TID PRN Administration Moderate Pain Intake and Output 03/28/17 03/29/17 03/29/17 22:59 06:59 14:59 Other: Voiding Method Toilet Toilet # Voids 2 Weight 99.6 kg 03/28/17 16:21 03/28/17 16:21 Assessment and Plan Plan: ASSESSMENT 1. Unstable angina 2. Coronary artery disease, 2 stents September 2016 3. Essential hypertension 4. Dyslipidemia 5. Diabetes mellitus 6. Chronic tobacco abuse 7. Obesity PLAN We will place the patient on a heparin drip. He should remain nothing by mouth. We recommend he undergo cardiac catheterization with his primary sales representative uniforms Dr. Camarillo. This has been discussed with Dr. Camarillo and he is in agreement. I have discussed the risks, benefits and alternative therapies for the above-mentioned procedure and for both sedation/analgesia as well as necessary blood product administration, if indicated, as they pertain to this patient. The patient has indicated understanding and acceptance of the risks and procedures discussed. Appropriate questions have been answered. The patient agrees to proceed with the above stated procedure later this afternoon. Continue with telemetry monitoring at this time. Please obtain stat EKG if he should develop any chest pain. Nurse Practitioner note has been reviewed, I agree with a documented findings and plan of care. Patient was seen and examined.
[2017-03-29 09:46] LABS: Basophils # (A) 0.1 k/uL (0-0.2); Basophils % (A) 1 %; CH 30.6; CHCM 32.7; Eosinophils # (A) 0.2 k/uL (0-0.7); Eosinophils % (A) 2 %; HCT 47.6 % (39.0-53.0); HDW 2.63; HGB 15.7 gm/dL (13.0-17.5); Luc # (Auto) 0.38; Luc % (Auto) 4; Lymphocytes # (A) 3.8 k/uL (1.0-4.8); Lymphocytes % (A) 36 %; MCH 31.1 pg (25.0-35.0); Mean Platelet Volume 7.3; Monocytes # (A) 0.6 k/uL (0-1.0); Monocytes % (A) 6 %; Neutrophils # (A) 5.6 k/uL (1.3-7.7); Neutrophils % (A) 52 %; RBC 5.07 m/uL (4.30-5.90); RDW 13.9 % (11.5-15.5); WBC 10.7 k/uL (3.8-10.6); WBC (Perox) 10.82
[2017-03-29 09:49] LABS: INR 1.1 (<1.2); Partial Thromboplastin Time 25.2 sec (22.0-30.0); Prothrombin Time 10.6 sec (9.0-12.0)
[2017-03-29] MEDS ORDERED: Magnesium Replacement Protocol 1 EACH MISC MISCELLANE PRN (10:08)
[2017-03-29] MEDS ORDERED: IV FLUID CONTINUATION 950 ML IV ONE (10:25)
[2017-03-29] MEDS ORDERED: diphenhydrAMINE 50 MG/ML 1 ML VIAL ONE (10:31)
[2017-03-29] MEDS ORDERED: fentaNYL (PF) 50 MCG/ML 2 ML AMP ONE (10:31)
[2017-03-29] MEDS ORDERED: LIDOCAINE 2% INJ 20 MG/ML (20 ML MDV) ONE (10:31)
[2017-03-29] MEDS ORDERED: VERAPAMIL 2.5 MG/ML 2 ML AMP ONE (10:32)
[2017-03-29] MEDS ORDERED: HEPARIN SODIUM 1,000 UN/ML (10ML VL) ONE (10:35)
[2017-03-29] MEDS ORDERED: diphenhydrAMINE 50 MG/ML 1 ML VIAL IVP ONE (10:48)
[2017-03-29] MEDS ORDERED: fentaNYL (PF) 50 MCG/ML 2 ML AMP IV ONE (10:50)
[2017-03-29] MEDS ORDERED: LIDOCAINE 2% INJ 20 MG/ML SQ ONE (10:54)
[2017-03-29] MEDS ORDERED: VERAPAMIL SYRINGE (5 MG/10 ML) INTRAARTER ONE (10:56)
[2017-03-29] MEDS ORDERED: IOHEXOL 350 MG/ML 125ML BOTTLE INJ ONE (11:12)
[2017-03-29] MEDS ORDERED: RX INFO: IV CONTRAST WAS GIVEN 1 EACH MISC MISCELLANE PRN (11:24)
[2017-03-29] MEDS ORDERED: SODIUM CHLORIDE 0.9% 1,000 ML IV SCH (11:30)
[2017-03-29 11:50] LABS: Glucose,Whole Blood 194 mg/dL (75-99)
[2017-03-29] MEDS: MAGNESIUM SULFATE-D5W PMX 1 GM in DEXTROSE/WATER 1 100ML.BAG IVPB SCH ×2 (11:53→12:53)
[2017-03-29] MEDS ORDERED: CHOLECALCIFEROL 1,000 UNIT TAB PO SCH (12:00)
--- NOTE | 2017-03-29 12:26 | CC ---
CARDIAC CATHETERIZATION REPORT Mr. Mathews is a 47-year-old male known history of hypertension, hyperlipidemia, diabetes mellitus, and history of chronic tobacco use who has underwent percutaneous revascularization of his LAD and right coronary artery in September 2016 and presented with symptoms of chest discomfort. He had no EKG or enzymatic changes, but because of the apparent symptoms and the prior history and evaluation by Dr. Sawyer, recommendation made regarding cardiac catheterization. The procedures, risks, and complications were discussed with the patient concerning agreement. PROCEDURE: Patient was brought to the chemical laboratory assistant in a fasting semi-sedated state after receiving fentanyl Benadryl and achieving moderate conscious sedated state. Using Xylocaine anesthesia, Seldinger technique a 6-American sheath was introduced in the right radial artery. Selective right and left angiography performed using 5-American 3 and half bend right Zachary catheter multiple views including hemiaxial views obtained. Following that, 5-American tight pigtail catheter was introduced into the left ventricle and a 30 degree CODY view of the left ventricle was obtained. Following that, cath and sheaths were removed. Hemostasis was obtained with deployment of a TR band. There was no immediate complication. Patient is returned to his room in stable condition. Of note, the patient received 5000 units of intravenous heparin as well as intra-arterial verapamil. FINDINGS: Left Main: This is a short size vessel bifurcating left circumflex and left anterior descending artery. The left main coronary artery is without any obstructive disease. Left Anterior Descending Artery: This is a large-sized vessel reaching to the apex tapering down distal third giving rise to a large diagonal branch. The left anterior descending artery proximally has a stent that is patent, has 20% restenosis. The ostium of the LAD has a 20% to 30% plaque. The rest of the vessel has no high-grade stenosis. Left Circumflex: This is a large nondominant vessel giving rise to 3 obtuse marginal branches. The left circumflex has mild intimal disease involving the first obtuse marginal branch. The rest of the vessel has no high-grade stenosis. Right Coronary Artery: This is a dominant vessel, moderate in caliber bifurcating PDA postop segment and branches. The stented segment in the mid right coronary artery is patent with no evidence of restenosis. Proximal to the stent there is a 30% to 40% plaque. The rest of the vessel has no high-grade stenosis. LEFT VENTRICULOGRAM: The left ventriculogram is performed in 30 degree CODY view and revealed no normal size and systolic function. Ejection fraction is 60%. There was no significant mitral regurgitation. HEMODYNAMICS: There was no gradient across the aortic valve. The left ventricular end-diastolic pressure was 16-20 mmHg. CONCLUSION: 1. No evidence of restenosis of the stented segment of the left anterior descending and the right coronary artery. 2. Mild triple-vessel coronary artery disease involving the proximal LAD, proximal right coronary artery and the first obtuse marginal branch. 3. Normal left ventricular size and systolic function. RECOMMENDATION: In view of finding anatomy, I recommend continue medical therapy with aggressive medications been initiated. Those findings and recommendation were discussed with the patient and his family who are in full understanding and agreement. DURATION THE PROCEDURE: 18 minutes. MMODL / IJN: [id number] /
[2017-03-29 12:31] LABS: Hemoglobin A1C 12.2 % (4.2-6.1)
--- NOTE | 2017-03-29 12:32 | LTR ---
March 29, [address] Vazquez: I had the pleasure of performing cardiac catheterization on Mr. Mathews at [facility] on March 29 and a full copy of the procedure note will be forwarded to you. In brief he was found to have no evidence of restenosis. There was mild triple-vessel coronary disease and preserved ventricular size and systolic function. Based on those findings, I recommend continued medical therapy with aggressive risk modification being initiated. Thank you again for allowing me to participate in his care. Please feel free to call for any questions. Sincerely, MMHUONGL / IJN: [id number] /
[2017-03-29 14:34] VITALS: BP 109/60; PULSE 73
--- NOTE | 2017-03-29 17:01 | P.DS ---
Providers Date of admission: 03/28/17 19:09 Attending physician: Navid Rajput Consults: 03/28/17 19:09 Consult Physician Urgent Consulting Provider: Zulema Camarillo Consult Reason/Comments: cp Do you want consulting provider notified?: Yes Primary care physician: Taylor Rodríguez [facility] Course: please refer to my HPI Plan - Discharge Summary New Discharge Prescriptions: New Omeprazole [PriLOSEC] 40 mg PO AC-BRKFST #14 capsule.dr Discontinued Naproxen [Naprosyn] 500 mg PO BID PRN PRN Reason: Pain No Action Lisinopril [Zestril] 20 mg PO DAILY Insulin Detemir [Levemir] 50 unit SQ HS glipiZIDE [Glucotrol] 10 mg PO BID Nicotine 21Mg/24Hr Patch [Habitrol] 1 patch TRANSDERM DAILY Aspirin 81 mg PO DAILY chew Atorvastatin [Lipitor] 80 mg PO HS #90 tab Metoprolol Tartrate [Lopressor] 25 mg PO BID #180 tab Insulin Aspart [NovoLOG] See Protocol SQ TID-W/MEALS #1 vial traMADol HCL [Ultram] 50 mg PO TID PRN PRN Reason: Pain Loratadine [Claritin] 10 mg PO DAILY Clopidogrel [Plavix] 75 mg PO DAILY Cholecalciferol [Vitamin D3] 1,000 unit PO DAILY Albuterol Sulfate [Proair Hfa] 2 puff INHALATION RT-QID PRN PRN Reason: Shortness Of Breath Discharge Medication List Insulin Detemir [Levemir] 50 unit SQ HS 10/12/16 [History] Lisinopril [Zestril] 20 mg PO DAILY 10/12/16 [History] Nicotine 21Mg/24Hr Patch [Habitrol] 1 patch TRANSDERM DAILY 10/12/16 [History] glipiZIDE [Glucotrol] 10 mg PO BID 10/12/16 [History] Aspirin 81 mg PO DAILY chew 10/13/16 [Rx] Atorvastatin [Lipitor] 80 mg PO HS #90 tab 10/13/16 [Rx] Insulin Aspart [NovoLOG] See Protocol SQ TID-W/MEALS #1 vial 10/13/16 [Rx] Metoprolol Tartrate [Lopressor] 25 mg PO BID #180 tab 10/13/16 [Rx] Albuterol Sulfate [Proair Hfa] 2 puff INHALATION RT-QID PRN 03/28/17 [History] Cholecalciferol [Vitamin D3] 1,000 unit PO DAILY 03/28/17 [History] Clopidogrel [Plavix] 75 mg PO DAILY 03/28/17 [History] Loratadine [Claritin] 10 mg PO DAILY 03/28/17 [History] traMADol HCL [Ultram] 50 mg PO TID PRN 03/28/17 [History] Omeprazole [PriLOSEC] 40 mg PO MATY #14 capsule. 03/29/17 [Rx] Follow up Appointment(s)/Referral(s): Zulema Camarillo MD [STAFF PHYSICIAN] - 04/09/17 2:30 pm Marcos Vazquez MD [Primary Care Provider] - 3 Days Patient Instructions/Handouts: Left Heart Catheterization (DC) Activity/Diet/Wound Care/Special Instructions: SEE RESTRICTION SHEET Discharge Disposition: HOME SELF-CARE
--- NOTE | 2017-03-29 17:01 | P.HPIM ---
History of Present Illness 44-year-old came in with compensative chest pain patient underwent cardiac catheterization which did not show any significant coronary occlusive disease. Please refer to cardiology dictation for further details of his chest pain.. Patient chest pain is mostly burning like sensation in the epigastric area started after eating patient probably has gastritis because of which patient will be discharged and parasite patient is cleared for discharge from cardiology perspective. patient denied any fever chills patient chest x-ray did not show any pneumonic process. Review of Systems REVIEW OF SYSTEMS: CONSTITUTIONAL: No fever, no malaise, no fatigue. HEENT: No recent visual problems or hearing problems. Denied any sore throat. CARDIOVASCULAR: No orthopnea, PND, no palpitations, no syncope. PULMONARY: No shortness of breath, no cough, no hemoptysis. GASTROINTESTINAL: No diarrhea, no nausea, no vomiting, no abdominal pain. Normoactive bowel sounds. NEUROLOGICAL: No headaches, no weakness, no numbness. HEMATOLOGICAL: Denies any bleeding or petechiae. GENITOURINARY: Denies any burning micturition, frequency, or urgency. MUSCULOSKELETAL/RHEUMATOLOGICAL: Denies any joint pain, swelling, or any muscle pain. ENDOCRINE: Denies any polyuria or polydipsia. The rest of the 14-point review of systems is negative. Past Medical History Past Medical History: Coronary Artery Disease (CAD), Chest Pain / Angina, Diabetes Mellitus, Hyperlipidemia History of Any Multi-Drug Resistant Organisms: None Reported Past Surgical History: Heart Catheterization With Stent, Orthopedic Surgery Additional Past Surgical History / Comment(s): stents placed to LAD and RCA 2016 Past Anesthesia/Blood Transfusion Reactions: No Reported Reaction Date of Last Stent Placement:: 09/2016 Past Psychological History: No Psychological Hx Reported Smoking Status: Current every day smoker Past Alcohol Use History: Rare Additional Past Alcohol Use History / Comment(s): Drinks alcohol around holidays Past Drug Use History: None Reported - Past Family History Father Family Medical History: Coronary Artery Disease (CAD) Additional Family Medical History / Comment(s): Greatgrandmother had diabetes Medications and Allergies Home Medications Medication Instructions Recorded Confirmed Type Insulin Detemir [Levemir] 50 unit SQ HS 10/12/16 03/28/17 History Lisinopril [Zestril] 20 mg PO DAILY 10/12/16 03/28/17 History Nicotine 21Mg/24Hr Patch [Habitrol] 1 patch TRANSDERM DAILY 10/12/16 03/28/17 History glipiZIDE [Glucotrol] 10 mg PO BID 10/12/16 03/28/17 History Aspirin 81 mg PO DAILY chew 10/13/16 03/28/17 Rx Atorvastatin [Lipitor] 80 mg PO HS #90 tab 10/13/16 03/28/17 Rx Insulin Aspart [NovoLOG] See Protocol SQ TID-W/MEALS #1 vial 10/13/16 03/28/17 Rx Metoprolol Tartrate [Lopressor] 25 mg PO BID #180 tab 10/13/16 03/28/17 Rx Albuterol Sulfate [Proair Hfa] 2 puff INHALATION RT-QID PRN 03/28/17 03/28/17 History Cholecalciferol [Vitamin D3] 1,000 unit PO DAILY 03/28/17 03/28/17 History Clopidogrel [Plavix] 75 mg PO DAILY 03/28/17 03/28/17 History Loratadine [Claritin] 10 mg PO DAILY 03/28/17 03/28/17 History traMADol HCL [Ultram] 50 mg PO TID PRN 03/28/17 03/28/17 History Omeprazole [PriLOSEC] 40 mg PO AC-BRWesleyFST #14 capsule. 03/29/17 Rx Allergies Allergy/AdvReac Type Severity Reaction Status Date / Time No Known Allergies Allergy Verified 03/28/17 17:58 Physical Exam Vitals: Vital Signs Temp Pulse Pulse Pulse Resp BP BP 03/29/17 14:33 73 109/60 03/29/17 13:30 77 108/58 03/29/17 13:15 81 112/61 03/29/17 13:00 72 105/68 03/29/17 12:45 79 119/61 03/29/17 12:30 70 116/70 03/29/17 12:15 71 103/63 03/29/17 12:00 72 105/68 03/29/17 11:45 70 116/78 03/29/17 11:30 65 18 115/70 03/29/17 08:00 97.9 F 67 18 105/70 03/29/17 04:00 98.0 F 78 16 109/62 03/29/17 03:21 67 16 03/29/17 00:00 97.7 F 68 16 102/55 03/28/17 21:00 72 18 03/28/17 20:26 97.5 F L 72 18 110/62 03/28/17 19:16 97.4 F L 87 18 114/86 03/28/17 17:37 97.9 F 64 18 135/84 03/28/17 17:16 63 18 107/64 Pulse Ox 03/29/17 14:33 97 03/29/17 13:30 94 L 03/29/17 13:15 94 L 03/29/17 13:00 93 L 03/29/17 12:45 94 L 03/29/17 12:30 95 03/29/17 12:15 94 L 03/29/17 12:00 95 03/29/17 11:45 95 03/29/17 11:30 95 03/29/17 08:00 95 03/29/17 04:00 96 03/29/17 03:21 03/29/17 00:00 97 03/28/17 21:00 03/28/17 20:26 96 03/28/17 19:16 98 03/28/17 17:37 96 03/28/17 17:16 98 Intake and Output 03/29/17 03/29/17 03/29/17 06:59 14:59 22:59 Intake Total 400 Balance 400 Intake: IV 100 Oral 300 Other: Voiding Method Toilet Toilet # Voids 2 PHYSICAL EXAMINATION: GENERAL: The patient is alert and oriented x3, not in any acute distress. Well developed, well nourished. HEENT: Pupils are round and equally reacting to light. EOMI. No scleral icterus. No conjunctival pallor. Normocephalic, atraumatic. No pharyngeal erythema. No thyromegaly. CARDIOVASCULAR: S1 and S2 present. No murmurs, rubs, or gallops. PULMONARY: Chest is clear to auscultation, no wheezing or crackles. ABDOMEN: Soft, nontender, nondistended, normoactive bowel sounds. No palpable organomegaly. MUSCULOSKELETAL: No joint swelling or deformity. EXTREMITIES: No cyanosis, clubbing, or pedal edema. NEUROLOGICAL: Gross neurological examination did not reveal any focal deficits. SKIN: No rashes. Results CBC & Chem 7: 03/29/17 03:34 10/04/17 16:21 Labs: Abnormal Lab Results - Last 24 Hours (Table) 03/28/17 03/28/17 03/28/17 Range/Units 16:21 16:21 16:21 WBC 11.4 H (3.8-10.6) k/uL Sodium 135 L (137-145) mmol/L Carbon Dioxide 20 L (22-30) mmol/L Creatinine 0.60 L (0.66-1.25) mg/dL Glucose 315 H (74-99) mg/dL POC Glucose (mg/dL) (75-99) mg/dL Hemoglobin A1c 12.2 H (4.2-6.1) % Magnesium 1.5 L (1.6-2.3) mg/dL Triglycerides (<150) mg/dL HDL Cholesterol (40-60) mg/dL 03/28/17 03/29/17 03/29/17 Range/Units 21:23 03:34 03:34 WBC 10.7 H (3.8-10.6) k/uL Sodium (137-145) mmol/L Carbon Dioxide (22-30) mmol/L Creatinine (0.66-1.25) mg/dL Glucose (74-99) mg/dL POC Glucose (mg/dL) 268 H (75-99) mg/dL Hemoglobin A1c (4.2-6.1) % Magnesium (1.6-2.3) mg/dL Triglycerides 290 H (<150) mg/dL HDL Cholesterol 24 L (40-60) mg/dL 03/29/17 03/29/17 Range/Units 06:57 11:47 WBC (3.8-10.6) k/uL Sodium (137-145) mmol/L Carbon Dioxide (22-30) mmol/L Creatinine (0.66-1.25) mg/dL Glucose (74-99) mg/dL POC Glucose (mg/dL) 193 H 194 H (75-99) mg/dL Hemoglobin A1c (4.2-6.1) % Magnesium (1.6-2.3) mg/dL Triglycerides (<150) mg/dL HDL Cholesterol (40-60) mg/dL Thrombosis Risk Factor Assmnt - Choose All That Apply Each Factor Represents 1 point: Age 41-60 years, Obesity (BMI >25) Thrombosis Risk Factor Assessment Total Risk Factor Score: 2 Thrombosis Risk Factor Assessment Level: Low Risk Assessment and Plan Plan: #1 chest pain, rule out acute coronary syndromes patient underwent cardiac catheterization which did not show any occlusive disease. Patient probably has gastritis or gastric reflux disease for which patient will be discharged and parasite. #2 coronary artery disease #3 type 2 diabetes mellitus #4 hyperlipidemia for above-mentioned chronic medical problems patient will be continued on home medications
[2017-03-29] MEDS ORDERED: ATORVASTATIN 80 MG TAB PO SCH (21:00)
[2017-03-30] MEDS ORDERED: ASPIRIN 81 MG PO SCH (09:00)
== END 2017-03-29 15:57 | disposition home or self-care (01) ==
LOC: EC 16:07 → 3OBS 19:09
PROVIDERS: ADMIT Hospitalist; ATTEND Hospitalist
DX: R07.89 Other chest pain (principal); R10.13 Epigastric pain; I25.10 Atherosclerotic heart disease of native coronary artery without angina pectoris; E11.9 Type 2 diabetes mellitus without complications; E78.5 Hyperlipidemia, unspecified; I10 Essential (primary) hypertension; I25.2 Old myocardial infarction; Z95.5 Presence of coronary angioplasty implant and graft; Z79.899 Other long term (current) drug therapy; Z79.84 Long term (current) use of oral hypoglycemic drugs; Z79.4 Long term (current) use of insulin; Z79.01 Long term (current) use of anticoagulants; F17.200 Nicotine dependence, unspecified, uncomplicated; E66.9 Obesity, unspecified; Z68.35 Body mass index [BMI] 35.0-35.9, adult; R06.02 Shortness of breath
CPT/HCPCS: 99285; 36415; 93005; 93458; 80061; 80053; 83036; 82550 ×2; 82553 ×2; 83735; 84484 ×2; 85025 ×2; 85610 ×2; 85730 ×2; 71020; G0378 ×2; C1894; C1769; S4990; J2001; J1200; J1644 ×3; J3010; J3475; Q9967

== ENCOUNTER 2017-07-26 15:27 | Emergency (ER) | payer OTHER ==
[2017-07-26 15:39] VITALS: BP 128/82; PULSE 80; RESP 18; TEMP 98.4
--- NOTE | 2017-07-26 15:54 | ED ---
General Adult HPI - General Chief complaint: Extremity Injury, Lower Stated complaint: Leg Pain Time Seen by Provider: 07/26/17 15:42 Source: patient, RN notes reviewed Mode of arrival: ambulatory Limitations: no limitations - History of Present Illness Initial comments: 47-year-old male presents to the emergency department with a chief complaint of right soni pain. Patient states that he has had this for about a month. He states that if he walks he has pain or touch along the anterior aspect admission. He states that he is constantly walking at work. He denies any falls traumas or injuries to the edition he can recall. He denies any other complaints at this time. He was concerned due to the continued pain so he thought that he should be evaluated.Patient denies any recent fever, chills, shortness of breath, chest pain, back pain, abdominal pain, nausea vomiting, numbness or tingling, dysuria or hematuria, constipation or diarrhea, headaches or visual changes, or any other current symptoms. - Related Data Home Medications Medication Instructions Recorded Confirmed Insulin Detemir [Levemir] 50 unit SQ HS 10/12/16 07/26/17 Lisinopril [Zestril] 20 mg PO DAILY 10/12/16 07/26/17 glipiZIDE [Glucotrol] 10 mg PO BID 10/12/16 07/26/17 Albuterol Sulfate [Proair Hfa] 2 puff INHALATION RT-QID PRN 03/28/17 07/26/17 Cholecalciferol [Vitamin D3] 1,000 unit PO DAILY 03/28/17 07/26/17 Clopidogrel [Plavix] 75 mg PO DAILY 03/28/17 07/26/17 HYDROcodone/APAP 5-325MG [[place] 1 tab PO Q6HR PRN 07/26/17 07/26/17 5-325] Previous Rx's Medication Instructions Recorded Aspirin 81 mg PO DAILY chew 10/13/16 Atorvastatin [Lipitor] 80 mg PO HS #90 tab 10/13/16 Metoprolol Tartrate [Lopressor] 25 mg PO BID #180 tab 10/13/16 Ibuprofen [Motrin] 600 mg PO Q6HR PRN #20 tab 07/26/17 Allergies Allergy/AdvReac Type Severity Reaction Status Date / Time No Known Allergies Allergy Verified 07/26/17 16:03 Review of Systems ROS Statement: Those systems with pertinent positive or pertinent negative responses have been documented in the HPI. ROS Other: All systems not noted in ROS Statement are negative. Past Medical History Past Medical History: Coronary Artery Disease (CAD), Chest Pain / Angina, Diabetes Mellitus, Hyperlipidemia History of Any Multi-Drug Resistant Organisms: None Reported Past Surgical History: Heart Catheterization With Stent, Orthopedic Surgery Additional Past Surgical History / Comment(s): stents placed to LAD and RCA 2016 Past Anesthesia/Blood Transfusion Reactions: No Reported Reaction Date of Last Stent Placement:: 09/2016 Past Psychological History: No Psychological Hx Reported Smoking Status: Current every day smoker Past Alcohol Use History: Rare Past Drug Use History: None Reported - Past Family History Father Family Medical History: Coronary Artery Disease (CAD) Additional Family Medical History / Comment(s): Greatgrandmother had diabetes General Exam - General Exam Comments Initial Comments: General: The patient is awake and alert, in no distress, and does not appear acutely ill. Neck: The neck is supple, there is no tenderness. Cardiovascular: There is a regular rate and rhythm. No murmur, rub or gallop is appreciated. Respiratory: Lungs are clear to auscultation, respirations are non-labored, breath sounds are equal. No wheezes, stridor, rales, or rhonchi. Musculoskeletal: Sensation intact with 2+ pulses throughout the right lower externa. Fund motion of right ankle and right knee. Patient does have some tenderness to the distal aspect along the anterior soni. Full range motion with 5 out of 5 muscle strength testing. Neurological: CN II-XII intact, There are no obvious motor or sensory deficits. Coordination appears grossly intact. Speech is normal. Skin: Skin is warm and dry and no rashes or lesions are noted. Psychiatric: Normal mood and affect. Limitations: no limitations Course Vital Signs 07/26/17 15:36 Temperature 98.4 F Pulse Rate 80 Respiratory 18 Rate Blood Pressure 128/82 O2 Sat by Pulse 98 Oximetry Medical Decision Making - Medical Decision Making 47-year-old male presents for right soin pain. This time no suspicion for soni splint. We discussed care of this 50 discussed follow-up we did discuss return parameters all questions. They state Ethan is given this plan. All questions have been answered. He will be discharged. - Radiology Data Radiology results: report reviewed, image reviewed Disposition Clinical Impression: Soni splint Disposition: HOME SELF-CARE Condition: Stable Instructions: Soni Splints (ED) Additional Instructions: Please use medication as discussed. Please follow up with family doctor if symptoms have not improved over the next two days. Please return to the emergency room if your symptoms increase or worsen or for any other concerns. Prescriptions: Ibuprofen [Motrin] 600 mg PO Q6HR PRN #20 tab PRN Reason: Pain Referrals: Marcos Vazquez MD [Primary Care Provider] - 1-2 days Saleem Shannon MD [Medical Doctor] - 1-2 days Time of Disposition: 16:33
--- NOTE | 2017-07-26 16:16 | XR ---
EXAMINATION TYPE: XR tibia fibula RT DATE OF EXAM: 07/26/2017 COMPARISON: NONE HISTORY: 47-year-old male generalized pain TECHNIQUE: 2 views FINDINGS: Antegrade intramedullary nail with a 2 proximal interlocking screws. Chronic healed fracture deformit y proximal third tibial and fibular shafts. No acute fracture. No significant periprosthetic lucency seen. The knee and ankle articulations appear grossly intact. Moderate-sized plantar calcaneal spur i ncidentally noted. No periostitis or osteolysis. IMPRESSION: Uncomplicated appearance to the antegrade intramedullary nail fixation across the chronic healed frac ture deformities of the tibia and fibula.
== END 2017-07-26 16:40 | disposition home or self-care (01) ==
LOC: EC 15:27
DX: M79.604 Pain in right leg (principal); I25.119 Atherosclerotic heart disease of native coronary artery with unspecified angina pectoris; E11.9 Type 2 diabetes mellitus without complications; F17.200 Nicotine dependence, unspecified, uncomplicated; Z79.84 Long term (current) use of oral hypoglycemic drugs; Z79.01 Long term (current) use of anticoagulants; Z79.4 Long term (current) use of insulin; Z79.899 Other long term (current) drug therapy; Z98.890 Other specified postprocedural states
CPT/HCPCS: 99283

== ENCOUNTER 2018-09-10 09:06 | Emergency (ER) | payer OTHER ==
[2018-09-10] MEDS ORDERED: HYDROcodone/APAP 7.5-325MG 1 EACH TAB PO ONE (10:03)
--- NOTE | 2018-09-10 10:12 | ED ---
General Adult HPI - General Chief complaint: Extremity Injury, Lower Stated complaint: back pain Time Seen by Provider: 09/10/18 09:54 Source: patient Mode of arrival: ambulatory Limitations: no limitations - History of Present Illness Initial comments: 48-year-old male with past medical history of chronicn low bakc pain, hypertension and diabetes presenting today for chief complaint of low back pain. Patient states about 4-5 months ago when he had insurance he was taking [place] for chronic low back pain as well as having pain managed at a clinic on [facility]. He states since he has lost his insurance he has been unable to go to these appointments. He states yesterday evening he was helping a friend lift boxes because they are moving homes, he did not know any specific pain at that time-he states he was lifting boxes various weights. Patient states this morning when he was taking a bath he noticed low back pain spreading across the low back on each side. Patient states he has no pain medication at home and presented today for evaluation and treatment. Patient denies any fever, chills, night sweats, history of cancer, IV drug use, loss of bowel or bladder control, loss of sensation or muscle weakness of the lower extremities. Patient denies any radiation of pain down the legs. Patient states the pain does increase with ambulation or any twisting or movement of the low back. Pt denies any neck or mid back pain, shortness of breath, chest pain, abdominal pain, nausea or vomiting, numbness or tingling, dysuria or hematuria, constipation or diarrhea, headaches or visual changes, or any other complaints. - Related Data Home Medications Medication Instructions Recorded Confirmed Insulin Detemir (Levemir) [Levemir] 50 unit SQ HS 10/12/16 07/26/17 Lisinopril [Zestril] 20 mg PO DAILY 10/12/16 07/26/17 glipiZIDE [Glucotrol] 10 mg PO BID 10/12/16 07/26/17 Albuterol Sulfate [Proair Hfa] 2 puff INHALATION RT-QID PRN 03/28/17 07/26/17 Cholecalciferol [Vitamin D3] 1,000 unit PO DAILY 03/28/17 07/26/17 Clopidogrel [Plavix] 75 mg PO DAILY 03/28/17 07/26/17 HYDROcodone/APAP 5-325MG [[place] 1 tab PO Q6HR PRN 07/26/17 07/26/17 5-325] Previous Rx's Medication Instructions Recorded Aspirin 81 mg PO DAILY chew 10/13/16 Atorvastatin [Lipitor] 80 mg PO HS #90 tab 10/13/16 Metoprolol Tartrate [Lopressor] 25 mg PO BID #180 tab 10/13/16 Ibuprofen [Motrin] 600 mg PO Q6HR PRN #20 tab 07/26/17 Cyclobenzaprine [Flexeril] 10 mg PO BID PRN 5 Days #10 tab 09/10/18 Allergies Allergy/AdvReac Type Severity Reaction Status Date / Time No Known Allergies Allergy Verified 09/10/18 09:18 Review of Systems ROS Statement: Those systems with pertinent positive or pertinent negative responses have been documented in the HPI. ROS Other: All systems not noted in ROS Statement are negative. Past Medical History Past Medical History: Coronary Artery Disease (CAD), Chest Pain / Angina, Diabetes Mellitus, Hyperlipidemia History of Any Multi-Drug Resistant Organisms: None Reported Past Surgical History: Heart Catheterization With Stent, Orthopedic Surgery Additional Past Surgical History / Comment(s): stents placed to LAD and RCA 09/2016 Past Anesthesia/Blood Transfusion Reactions: No Reported Reaction Date of Last Stent Placement:: 09/2016 Past Psychological History: No Psychological Hx Reported Smoking Status: Current every day smoker Past Alcohol Use History: Rare Past Drug Use History: None Reported - Past Family History Father Family Medical History: Coronary Artery Disease (CAD) Additional Family Medical History / Comment(s): Greatgrandmother had diabetes General Exam - General Exam Comments Initial Comments: General: The patient is awake and alert, in no distress, and does not appear acutely ill. Eye: Pupils are equal, round and reactive to light, extra-ocular movements are intact. No nystagmus. There is normal conjunctiva bilaterally. No signs of icterus. Ears, nose, mouth and throat: There are moist mucous membranes and no oral lesions. Neck: The neck is supple, there is no tenderness or JVD. Cardiovascular: There is a regular rate and rhythm. No murmur, rub or gallop is appreciated. Respiratory: Lungs are clear to auscultation, respirations are non-labored, breath sounds are equal. No wheezes, stridor, rales, or rhonchi. Gastrointestinal: Soft, non-distended, non-tender abdomen without masses or organomegaly noted. Musculoskeletal: Upon inspection of the cervical, thoracic and lumbar spine there is no abnormalities. Normal ROM without tenderness of the upper and lower extremities with strength 5/5. Sensation intact of the lower extremities including the saddle region equal in comparison bilaterally of the lower extremities. DP pulses equal bilaterally 2+. Patient is able to ambulate without difficulty. Patient is able to heel and toe walk. Negative straight leg raise bilaterally. Pain to to palpation paravertebral of the lumbar spine b/l. Neurological: A&O x 3. CN II-XII intact, There are no obvious motor or sensory deficits. Coordination appears grossly intact. Speech is normal. Skin: Skin is warm and dry and no rashes or lesions are noted. Psychiatric: Cooperative, appropriate mood & affect, normal judgment. Limitations: no limitations Course Vital Signs 09/10/18 09:17 Temperature 98 F Pulse Rate 75 Respiratory 18 Rate Blood Pressure 130/82 O2 Sat by Pulse 97 Oximetry Medical Decision Making - Medical Decision Making First external male presenting for pain in the lumbar spine after helping a friend move boxes the day prior. Patient denies any specific time that the pain began yesterday. He states he did notice the pain this morning when taking a bath. Patient has no radicular symptoms. Patient has paravertebral tenderness of the lumbar spine as well as palpable muscle tension. Patient has no findings concerning for cauda equina. No red flags upon history or examination. Patient appears well, no acute distress with history of chronic pain with relief with norco. Pt given norco for pain management in the ER. Will be discharged with treatment for low back strain including Flexeril as well as warm compresses 20 minutes on 20 minutes off 3 times a day. I discussed the importance of follow- up including primary care provider as well as orthopedic surgery if symptoms persist for greater than 1 week. Patient is agreeable plan stating he will follow up with his primary Dr. Vazquez within the next week. Patient is aware of all return parameters, denies questions at this time. Discussed the case attending provider Dr. Henriquez who is agreeable plan and discharge. Disposition Clinical Impression: Low back strain Disposition: HOME SELF-CARE Condition: Good Instructions (If sedation given, give patient instructions): Low Back Strain (ED) Additional Instructions: Please use medication as discussed, no driving, using alcohol, using opioids, operating machinery or working while taking flexeril as discussed. Please follow-up with family doctor in the next 2 days. If symptoms persist I recommend evaluation by orthopedic surgery. Please return to emergency room if the symptoms increase or worsen or for any other concerns. Prescriptions: Cyclobenzaprine [Flexeril] 10 mg PO BID PRN 5 Days #10 tab PRN Reason: Muscle Spasm Is patient prescribed a controlled substance at d/c from ED?: No Referrals: Marcos Vazquez MD [Primary Care Provider] - 1-2 days Time of Disposition: 10:14
[2018-09-10 10:47] VITALS: BP 128/68; PULSE 71; RESP 16; TEMP 98
== END 2018-09-10 10:41 | disposition home or self-care (01) ==
LOC: EC 09:06
DX: S39.012A Strain of muscle, fascia and tendon of lower back, initial encounter (principal); E11.9 Type 2 diabetes mellitus without complications; I25.119 Atherosclerotic heart disease of native coronary artery with unspecified angina pectoris; F17.200 Nicotine dependence, unspecified, uncomplicated; Z79.4 Long term (current) use of insulin; Z79.02 Long term (current) use of antithrombotics/antiplatelets; Z79.899 Other long term (current) drug therapy; Z95.5 Presence of coronary angioplasty implant and graft; X50.0XXA Overexertion from strenuous movement or load, initial encounter; Y93.89 Activity, other specified
CPT/HCPCS: 99283

== ENCOUNTER 2019-03-31 05:06 | Inpatient (IN) | payer OTHER ==
[2019-03-31] MEDS ORDERED: ASPIRIN 81 MG PO STA (05:15)
--- NOTE | 2019-03-31 05:15 | ED ---
Chest Pain HPI - General Stated Complaint: Poss STEMI Time Seen by Provider: 03/31/19 05:09 Source: patient Mode of arrival: EMS Limitations: no limitations - History of Present Illness Initial Comments: This patient is a 49-year-old man with history of previous coronary artery disease and status post stenting, who is brought by ambulance to be evaluated for chest pain. Patient indicates pain is in the left anterior chest. It had initially come on approximately one week ago though it was not severe. Patient states that since last night the pain has become severe. He describes as an aching, constant pain. He has not noted worsening factors. The patient states that the pain has gone down from 7 to 3 after he was given nitroglycerin by EMS. Patient does smoke. Review of patient's records reveals that in September 2016 he had 2 stents placed, one in the proximal LAD for a 99% lesion and one in the mid RCA for a 90% lesion. He then had a heart cath in March 2017 which only showed mild three-vessel disease. MD Complaint: chest pain Onset/Timin -: week(s) Onset: during rest Pain Location: left chest Pain Radiation: none Severity: severe Quality: aching Consistency: constant Improves With: nitroglycerin Worsens With: nothing Anginal Symptoms: nausea, dyspnea Treatments Prior to Arrival: aspirin, nitroglycerin, oxygen - Related Data Home Medications Medication Instructions Recorded Confirmed Ergocalciferol [Vitamin D2 50,000 unit PO Q7D 03/31/19 03/31/19 (DRISDOL)] Pregabalin [Lyrica] 75 mg PO BID 03/31/19 03/31/19 Previous Rx's Medication Instructions Recorded Cyclobenzaprine [Flexeril] 10 mg PO BID PRN 5 Days #10 tab 09/10/18 Amoxicillin 500 mg PO BID 10 Days #20 capsule 04/01/19 Aspirin 81 mg PO DAILY 30 Days #30 chew 04/01/19 Atorvastatin [Lipitor] 80 mg PO DAILY 30 Days #30 tab 04/01/19 Clopidogrel Bisulfate [Plavix] 300 mg PO ONCE #4 tablet 04/01/19 Clopidogrel [Plavix] 75 mg PO DAILY #30 tablet 04/01/19 HYDROcodone/APAP 5-325MG [[place] 1 each PO Q6HR PRN #12 tab 04/01/19 5-325] Insulin Glargine,Hum.rec.anlog 60 unit SQ HS #1 box 04/01/19 [Basagljesusita Delgadopen U-100] Lisinopril [Zestril] 2.5 mg PO DAILY 30 Days #30 tab 04/01/19 Metoprolol Tartrate 25 mg PO BID 30 Days #60 tab 04/01/19 Nitroglycerin Sl Tabs [Nitrostat] 0.4 mg SUBLINGUAL Q5M PRN #30 tab 04/01/19 Pen Needle, Diabetic [Bd 1 each SQ HS #100 dis.needle 04/01/19 Ultra-Fine Pen Needle 8mm 31G] glipiZIDE [Glucotrol] 10 mg PO BID 30 Days #60 tab 04/01/19 Allergies Allergy/AdvReac Type Severity Reaction Status Date / Time No Known Allergies Allergy Verified 03/31/19 11:44 Review of Systems ROS Statement: Those systems with pertinent positive or pertinent negative responses have been documented in the HPI. ROS Other: All systems not noted in ROS Statement are negative. Constitutional: Denies: fever, chills ENT: Denies: throat pain Respiratory: Reports: dyspnea. Denies: cough Cardiovascular: Reports: chest pain. Denies: palpitations, orthopnea, edema, syncope Gastrointestinal: Reports: nausea. Denies: abdominal pain, vomiting, diarrhea Genitourinary: Denies: dysuria, hematuria Musculoskeletal: Denies: back pain Skin: Denies: rash Neurological: Denies: headache, weakness, numbness Hematological/Lymphatic: Denies: easy bleeding EKG Findings - EKG Comments: EKG Findings:: Compared with ECG from March 2017. - EKG Results: EKG: interpreted by ERMD, sinus rhythm (Rate 83 bpm), normal axis - Blocks, Ione, Hypertrophy, ST Abn: Repolarization changes or abnormalities: ST or T wave suggestive of ischemia (There appear to be new T inversions in leads 1 and aVL or systemic comparison.) - PR, Pacemaker, Normal: Myocardial infarction: anterior PR (old age or indeterminate) Past Medical History Past Medical History: Coronary Artery Disease (CAD), Chest Pain / Angina, Diabetes Mellitus, Hyperlipidemia History of Any Multi-Drug Resistant Organisms: None Reported Past Surgical History: Heart Catheterization With Stent, Orthopedic Surgery Additional Past Surgical History / Comment(s): stents placed to LAD and RCA 09/2016 Past Anesthesia/Blood Transfusion Reactions: No Reported Reaction Date of Last Stent Placement:: 09/2016 Past Psychological History: No Psychological Hx Reported Smoking Status: Current every day smoker Past Alcohol Use History: Rare Past Drug Use History: None Reported - Past Family History Father Family Medical History: Coronary Artery Disease (CAD) Additional Family Medical History / Comment(s): Greatgrandmother had diabetes General Exam General appearance: alert, in no apparent distress Head exam: Present: atraumatic, normocephalic Eye exam: Present: normal appearance. Absent: scleral icterus, conjunctival injection ENT exam: Present: normal oropharynx Neck exam: Present: normal inspection Respiratory exam: Present: normal lung sounds bilaterally. Absent: respiratory distress, wheezes, rales, rhonchi, stridor, chest wall tenderness Cardiovascular Exam: Present: regular rate, normal rhythm, normal heart sounds. Absent: systolic murmur, diastolic murmur, rubs, gallop GI/Abdominal exam: Present: soft. Absent: distended, tenderness, guarding, rebound, rigid, mass Extremities exam: Present: normal inspection, normal capillary refill. Absent: pedal edema, calf tenderness Back exam: Present: normal inspection. Absent: CVA tenderness (R), CVA tenderness (L) Neurological exam: Present: alert Skin exam: Present: warm, dry, intact, normal color. Absent: rash Course Vital Signs 03/31/19 03/31/19 03/31/19 05:08 05:23 05:59 Temperature 98.3 F Pulse Rate 85 80 75 Respiratory 17 17 17 Rate Blood Pressure 136/83 119/74 125/77 O2 Sat by Pulse 95 97 [address] [facility] Patient is 49-year-old man with coronary artery disease status post stenting. He had total relief of his pain after arrival here when he was given morphine and the nitroglycerin paste. Given the patient's concerning history he is started on heparin. The case is discussed with cardiology (Dr. Weston) who did come and see the patient here. Critical Care Time Critical Care Time: Yes (35 minutes) Disposition Clinical Impression: Acute non-ST elevation myocardial infarction (NSTEMI) Disposition: ADMITTED IP TO THIS HOSP Condition: Stable Is patient prescribed a controlled substance at d/c from ED?: No
[2019-03-31] MEDS ORDERED: NITROGLYCERIN OINT 1 INCH/GM PACKET TOPICAL STA (05:16)
[2019-03-31] MEDS ORDERED: MORPHINE SULFATE 4 MG/ML SYRINGE IV STA (05:16)
--- NOTE | 2019-03-31 05:45 | XR ---
EXAMINATION TYPE: XR chest 2V DATE OF EXAM: 03/31/2019 COMPARISON: 03/28/2017 HISTORY: Chest pain TECHNIQUE: Frontal and lateral views of the chest are obtained. FINDINGS: Heart and mediastinum are normal. Lungs are clear. Diaphragm is normal. Bony thorax appear s normal. There are chest leads. IMPRESSION: Normal chest. No change.
[2019-03-31 05:55] LABS: Basophils # (A) 0.1 k/uL (0-0.2); Basophils % (A) 1 %; Eosinophils # (A) 0.4 k/uL (0-0.7); Eosinophils % (A) 4 %; HCT 46.6 % (39.0-53.0); HGB 16.1 gm/dL (13.0-17.5); Lymphocytes # (A) 3.4 k/uL (1.0-4.8); Lymphocytes % (A) 36 %; MCH 31.4 pg (25.0-35.0); MCHC 34.5 g/dL (31.0-37.0); MCV 90.9 fL (80.0-100.0); Monocytes # (A) 0.5 k/uL (0-1.0); Monocytes % (A) 5 %; Neutrophils # (A) 4.7 k/uL (1.3-7.7); Neutrophils % (A) 51 %; Platelet Count 255 k/uL (150-450); RBC 5.12 m/uL (4.30-5.90); RDW 13.3 % (11.5-15.5); WBC 9.3 k/uL (3.8-10.6)
[2019-03-31 06:07] LABS: ALT 18 U/L (21-72); AST 20 U/L (17-59); African American GFR (CKD) >90 (>60 ml/min/1.73 sqM); Albumin 3.9 g/dL (3.5-5.0); Alkaline Phosphatase 117 U/L (38-126); Anion Gap 11 mmol/L; Blood Urea Nitrogen 13 mg/dL (9-20); Calcium 9.1 mg/dL (8.4-10.2); Carbon Dioxide 22 mmol/L (22-30); Chloride 101 mmol/L (98-107); Glucose 422 mg/dL (74-99); Magnesium 1.7 mg/dL (1.6-2.3); Potassium 4.7 mmol/L (3.5-5.1); Sodium 134 mmol/L (137-145); Total Bilirubin 0.3 mg/dL (0.2-1.3); Total Protein 6.5 g/dL (6.3-8.2)
[2019-03-31 06:10] LABS: D-Dimer 0.29 mg/L FEU (<0.60); INR 0.9 (<1.2); Partial Thromboplastin Time 25.1 sec (22.0-30.0); Prothrombin Time 9.6 sec (9.0-12.0)
[2019-03-31] MEDS ORDERED: INSULIN REGULAR 100 UNIT/ML VIAL SQ STA (06:26)
[2019-03-31] MEDS ORDERED: HEPARIN SODIUM,PORCINE 5,000 UNIT/ML 1 ML VIAL IV PRN (06:28)
[2019-03-31] MEDS ORDERED: HEPARIN SODIUM,PORCINE 5,000 UNIT/ML 1 ML VIAL IV ONE (06:28)
[2019-03-31] MEDS ORDERED: HEPARIN SOD,PORK IN 0.45% NACL 25,000 UNIT in 0.45% NACL 1 250ML.BAG IV SCH (06:30)
[2019-03-31] MEDS ORDERED: NITROGLYCERIN SL TABS 0.4 MG TAB SUBLINGUAL PRN ×3 (06:38→13:33)
[2019-03-31] MEDS ORDERED: MORPHINE SULFATE 4 MG/ML SYRINGE IV PRN (06:38)
--- NOTE | 2019-03-31 07:40 | CONS ---
PHILIP Mathews is a 49-year-old gentleman with a known history of CAD, type 2 diabetes, hypertension, hyperlipidemia, and smoking. In September of 2016, this gentleman presented to [facility] with chest pain and underwent stenting of proximal LAD and mid RCA performed by Dr. Camarillo. Since then he came back to the hospital again in March of 2017 and cardiac cath at that time revealed that both of these arteries were patent. Since then he has not followed up with Dr. Camarillo, but he saw his primary care physician on and off. He has started a new job about a month ago, feels very stressed about it. He woke up this morning with discomfort in the chest and came into the hospital. He was having chest pain, required morphine and sublingual nitroglycerin. The pain has completely resolved now. He is resting comfortably. He has virtually no symptoms of chest discomfort. EKG revealed more or less of a QS pattern in precordial leads suggestive of anteroseptal MD with J-point prominence. There are no R-waves and this is a new finding compared to the EKG from 2017. He is completely pain free, resting comfortably. PAST MEDICAL HISTORY: 1. History of CAD with prior PCI of proximal LAD and mid RCA performed in September of 2016 and subsequently in March of 2017, there was no evidence of restenosis and circumflex was free of significant disease. Ejection fraction was actually normal at that time. 2. Type 2 diabetes mellitus. 3. Hyperlipidemia. 4. History of smoking. 5. History of noncompliance. MEDICATIONS: Medications at home include Glucotrol, Lopressor, lisinopril, insulin, Plavix 75 mg daily, aspirin 81 mg daily, Lipitor 80 mg daily. ALLERGIES: No known drug allergies. PHYSICAL EXAMINATION: On examination, blood pressure is 126/70, pulse rate is 70 per minute, regular. HEENT: Unremarkable. Fundus was not examined by me. Neck is supple. No JVD. I do not hear a carotid bruit. There is no thyromegaly. Heart exam reveals S1, S2 heard normally. No rub, murmur or gallop. Lungs are clear. Abdomen is soft, nontender. Lower extremities reveal normal pulses. No edema. Central nervous system is normal. EKG revealed sinus mechanism with evidence of old anteroseptal MD with J-point prominence. LABORATORY DATA: Laboratory data reveals that his troponin is up to 0.128. IMPRESSION: 1. Acute ischemic syndrome, probable non ST elevation myocardial infarction in a patient with a known proximal LAD and mid RCA stenting in September of 2016. 2. Type 2 diabetes mellitus. 3. Hypertension. 4. Hyperlipidemia. 5. History of smoking. RECOMMENDATIONS: I am recommending that we keep the patient n.p.o., continue IV heparin, proceed with cardiac cath and I will speak to Dr. Camarillo in this regard. I explained to the patient the rationale, risks, benefits, options related to cardiac cath. He understands all details and wishes to proceed with the procedure. MMODL / IJN: [id number] /
[2019-03-31 08:02] VITALS: BMI 32.8
[2019-03-31] MEDS ORDERED: SODIUM CHLORIDE 0.9% 1,000 ML in EMPTY BAG 1 BAG IV ONE (08:56)
[2019-03-31] MEDS ORDERED: ALPRAZolam 0.5 MG TAB PO PRN (08:56)
[2019-03-31] MEDS ORDERED: ATORVASTATIN 80 MG TAB PO STA (08:56)
[2019-03-31] MEDS ORDERED: ASPIRIN 325 MG TAB PO STA (08:56)
[2019-03-31] MEDS ORDERED: ALPRAZolam 0.25 MG TAB PO PRN (08:56)
[2019-03-31] MEDS ORDERED: IV FLUID CONTINUATION 250 ML IV ONE (11:33)
[2019-03-31] MEDS ORDERED: ERGOCALCIFEROL 50,000 UNIT CAP PO SCH (12:15)
[2019-03-31] MEDS ORDERED: CYCLOBENZAPRINE 10 MG TAB PO PRN (12:17)
[2019-03-31] MEDS ORDERED: fentaNYL (PF) 50 MCG/ML 2 ML AMP IV ONE (12:34)
[2019-03-31] MEDS ORDERED: LIDOCAINE 1% INJ 10MG/ML (20 ML MDV) SQ ONE (12:35)
[2019-03-31] MEDS ORDERED: VERAPAMIL SYRINGE (5 MG/10 ML) INTRAARTER ONE (12:37)
[2019-03-31] MEDS ORDERED: MIDAZOLAM PF (FBP) 2 MG/2 ML VIAL IV ONE (12:37)
[2019-03-31] MEDS ORDERED: BIVALIRUDIN BOLUS 250 MG/50 ML IV ONE (12:48)
[2019-03-31] MEDS ORDERED: BIVALIRUDIN 250 MG in SODIUM CHLORIDE 0.9% 50 ML IV ONE (12:49)
[2019-03-31] MEDS ORDERED: PRASUGREL 10 MG TAB PO ONE (12:50)
[2019-03-31] MEDS ORDERED: IOPAMIDOL-370 125ML BTL INJ ONE ×2 (13:01→13:14)
--- NOTE | 2019-03-31 13:07 | HP ---
HISTORY AND PHYSICAL DATE OF SERVICE: 03/31/2019 CHIEF COMPLAINT: Chest pain. HISTORY OF PRESENT ILLNESS: This 49-year-old gentleman with a past medical history of multiple medical problems including CAD with PCI of the proximal LAD, mid RCA, history of chest pain, history of diabetes mellitus, hypertension, hyperlipidemia, history of nicotine dependence, being followed by Dr. Vazquez in the outpatient setting apparently had a procedure in 2017, but subsequently patient continued to smoke and the patient is admitted with chest pain to [facility]. The pain was located in the anterior part of the chest, mainly on the left side which is on and off for the last one week and the pain was almost like an aching or constant pain without any aggravating factors. There is no history of any radiation of the pain. The nitroglycerin did relieve the pain to some extent according to him. The patient came to [facility] and admitted for further evaluation and treatment. Troponin was found to be 0.128 indicating the possibility of acute non ST elevation myocardial infarction. The EKG showed ST-T changes. Cardiology saw the patient and planning for cardiac catheterization. There is no history of fever or rigors. No history of headache, loss of consciousness or seizures. PAST MEDICAL HISTORY: History of CAD and stents, history of diabetes mellitus type 2, hyperlipidemia, history of nicotine dependence. MEDICATIONS: Medications prior to admission home medications are: 1. Glucotrol 10 mg p.o. b.i.d. 2. Lyrica 75 mg p.o. b.i.d. 3. Zestril 20 mg p.o. daily. 4. Levemir 60 units subcu q.h.s. 5. Vitamin D2, 50,000 q.7 days. 6. Flexeril 10 mg b.i.d. p.r.n. 7. Aspirin 81 mg p.o. daily. ALLERGIES: Allergies are none. FAMILY HISTORY: History of CAD, diabetes mellitus in grandfather. SOCIAL HISTORY: History of smoking, continued ongoing. REVIEW OF SYSTEMS: ENT: No diminished hearing or diminished vision. CARDIOVASCULAR SYSTEM: As mentioned earlier. RESPIRATORY SYSTEM: As mentioned earlier. GI: No nausea. : No dysuria. NERVOUS SYSTEM: No numbness or weakness. ALLERGY/IMMUNOLOGY: No asthma or hayfever. MUSCULOSKELETAL: As mentioned earlier. HEMATOLOGY/ONCOLOGY: No history of anemia. ENDOCRINE: As mentioned earlier. CONSTITUTIONAL: As mentioned earlier. DERMATOLOGY: Negative. RHEUMATOLOGY: Negative. PSYCHIATRY: As mentioned earlier. PHYSICAL EXAMINATION: The patient is alert and oriented x3. Pulse is 78, blood pressure 118/83, respiration 17, temperature 97.8, pulse ox 97% on 2 L. HEENT: Conjunctivae normal. Oral mucosa moist. NECK: Is no jugular venous distention. No carotid bruit. No lymph node enlargement. CARDIOVASCULAR: S1, S2 muffled. No S3, no S4. RESPIRATORY: Breath sounds diminished at the bases. No rhonchi. No crackles. ABDOMEN: Soft, nontender. No mass palpable. LEGS: No edema, no swelling. NERVOUS SYSTEM: Higher function as mentioned earlier. Moves all 4 limbs. No focal motor deficits. LYMPHATICS: No lymphadenopathy of the neck, axillae or groin. SKIN: No ulcer, rash or bleeding. JOINTS: No active deforming arthropathy. LABS: CBC ntd. Sodium 134. Glucose 422. Troponin 0.128. ASSESSMENT: 1. Chest pain possible acute non ST segment elevation myocardial infarction with troponin 0.128. 2. History of coronary artery disease, stent. 3. Diabetes mellitus type 2. 4. Hyponatremia. 5. Continued ongoing nicotine dependence. 6. History of hyperlipidemia. 7. History of degenerative joint disease. 8. History of nicotine dependence. RECOMMENDATIONS AND DISCUSSION: This 49-year-old gentleman who presented with multiple medical issues, at this time I recommend to continue the current medications and continue symptomatic treatment. Otherwise, continue with acute coronary syndrome protocol. Cardiology saw the patient and planning cardiac catheterization. At this time I recommend tighter control of the blood sugar, also, smoking cessation. The prognosis overall guarded because of multiple complex medical issues. Discussed with the patient, understands and agrees. Further recommendations to follow. A copy of dictation forwarded to Dr. Vazquez who is the primary physician. MMODL / IJN: [id number] / [facility]PITALMegha
[2019-03-31] MEDS ORDERED: SODIUM CHLORIDE 0.9% 500 ML 500 ML IV ONE (13:23)
[2019-03-31] MEDS ORDERED: ATROPINE SULFATE 0.1 MG/ML 10ML SYRINGE IV PRN (13:33)
[2019-03-31] MEDS ORDERED: RX INFO: IV CONTRAST WAS GIVEN 1 EACH MISC MISCELLANE PRN (13:33)
[2019-03-31] MEDS ORDERED: ZOLPIDEM 5 MG TAB PO PRN (13:33)
[2019-03-31] MEDS ORDERED: MAG HYDROX/AL HYDROX/SIMETH 30 ML CUP PO PRN (13:33)
[2019-03-31 13:45] LABS: Glucose,Whole Blood 169 mg/dL (75-99)
[2019-03-31] MEDS ORDERED: SODIUM CHLORIDE 0.9% 1,000 ML IV SCH (13:45)
[2019-03-31] MEDS: INSULIN ASPART (NovoLOG) 100 UNIT/ML VIAL SQ SCH ×3 (13:47→21:08)
[2019-03-31] MEDS: NICOTINE 14MG/24HR PATCH TRANSDERM SCH (13:48)
[2019-03-31 16:47] LABS: Glucose,Whole Blood 253 mg/dL (75-99)
[2019-03-31 17:06] LABS: Appearance,Urine Clear (Clear); Bilirubin,Urine Negative (Negative); Blood,Urine Negative (Negative); Color,Urine Light Yellow; Glucose,Urine (UA) 4+ (Negative); Ketones,Urine Negative (Negative); Leukocyte Esterase,Urine Negative (Negative); Nitrite,Urine Negative (Negative); Protein,Urine Negative (Negative); Urobilinogen,Urine <2.0 mg/dL (<2.0)
--- NOTE | 2019-03-31 17:25 | CC ---
CARDIAC CATHETERIZATION REPORT Mr. Mathews is a 49-year-old male with known history of coronary artery disease, status post 2-vessel stenting in September 2016, history of hypertension, hyperlipidemia, diabetes mellitus and chronic tobacco use. He has not been compliant with followup. He presented with symptoms of chest discomfort going on and off for the last week. He had minimal troponin elevation in the emergency room. In view of that, recommendation was made regarding cardiac catheterization. The procedure, its risks and complications were discussed with the patient, who was in full understanding and agreement. PROCEDURE DESCRIPTION: Patient was brought to the mechanical shop laborer in a fasting semi-sedated state after receiving fentanyl and Benadryl and achieving a moderate conscious sedated state. Using Xylocaine anesthesia and Seldinger technique, a 6-Hong Konger sheath was introduced in the right radial artery. Selective right and left coronary angiography was performed using 5-Hong Konger 3-1/2 bend right and left Zachary catheters. Multiple views were taken of the arteries, including hemiaxial views. Following that, angioplasty and stenting was performed. Following that, a 5-Hong Konger tight pigtail catheter was introduced in the left ventricle and a 30-degree CODY view of the left ventricle was obtained. Following that, catheter and sheath were removed. Hemostasis was obtained with deployment of a TR band. There was no immediate complication. Patient was returned to his room in stable condition. Of note, the patient received intra-arterial verapamil. FINDINGS: LEFT MAIN: This is a short-sized vessel bifurcating into left circumflex, left anterior descending artery. Left main coronary artery has no evidence of high-grade stenosis. LEFT ANTERIOR DESCENDING ARTERY: This is a large-sized vessel giving rise to a large diagonal branch. The left anterior descending artery has a stent in the proximal segment. At the distal edge of the stent there is a 99% stenosis. There is slow flow into a large diagonal branch and the distal LAD. The rest of the vessel has no high- grade stenosis. LEFT CIRCUMFLEX: This is a large nondominant vessel giving rise to a large obtuse marginal branch proximally, distally bifurcating into a distal branch that goes in the distribution of the PLV. The left circumflex as well as branches have no evidence of obstructive coronary artery disease. RIGHT CORONARY ARTERY: This is a moderately sized vessel, dominant, bifurcating distally into PDA and posterolateral segment and branches. The right coronary artery is stented in the mid segment and that is patent. Prior to the stent there is a 40% plaque, eccentric, without any evidence of high-grade stenosis. LEFT VENTRICULOGRAM: Left ventriculogram was performed in 30-degree CODY view and revealed a normal left ventricular size. There is mild anterior wall hypokinesis. The estimated ejection fraction is 50%. There was no significant mitral regurgitation. HEMODYNAMICS: There was no gradient across the aortic valve. The left ventricular end-diastolic pressure was 14 mmHg. CONCLUSION: 1. Subtotally occluded proximal LAD at the distal edge of the old stent. 2. Mild disease in the mid right coronary artery. RECOMMENDATIONS: In view of findings and anatomy, I have recommended proceeding with angioplasty and stenting of the LAD. The procedure, its risks and complications were discussed with the patient, who is in full understanding and agreement. MMODL / IJN: [id number] /
--- NOTE | 2019-03-31 17:50 | PTCA ---
PERCUTANEOUSTRANS CORORONARY ANGIOGRAPHY Mr. Mathews is a 49-year-old male with known history of hypertension, hyperlipidemia and diabetes mellitus who presented with symptoms of chest discomfort and mild troponin elevation. He underwent cardiac catheterization and was found to have critical stenosis involving the proximal LAD. In view of that, recommendation was made regarding angioplasty and stenting. The procedure, its risks and complications were discussed with the patient, who was in full understanding and agreement. PROCEDURE DESCRIPTION: A 6-Luxembourger FL3.5 guiding catheter was introduced in the system. After cannulating the left main, a 0.014 balanced medium weight J-wire was advanced and positioned in the distal diagonal branch. Following that, another 0.014 balanced medium weight J-wire was advanced and positioned in the distal LAD. Following that, a 2.5 x 15 mm Trek balloon was advanced and one inflation at 12 atmospheres was done. Following that, the balloon was removed and a 3.5 x 18 mm Xience Nette stent was advanced, deployed and post dilated at 16 atmospheres. After the last inflation, after appropriate wait, the balloon and the guidewire were withdrawn back into the guiding catheter. Images were obtained and repeated. Those images revealed stable successful stenting. At that point, the guiding catheter, the balloon and the guidewire were removed and a left ventriculogram was performed. Following that, catheter and sheath were removed. Hemostasis was obtained with deployment of a TR band. There was no immediate complication. Patient was returned to his room in stable condition. Of note, the patient received Angiomax per protocol as well as oral loading dose of Effient. He had chest discomfort with the inflation that resolved at the end of the procedure. RESULTS: Successful stenting of the proximal LAD with reduction of stenosis from 99% to 0%. RECOMMENDATIONS: Patient will be continued on aspirin, Effient, beta ambar, DONTE inhibitor and statin. The importance of smoking cessation and dual antiplatelet treatment was discussed with the patient and his family, who are in full understanding and agreement. Duration of procedure was 42 minutes. MMODL / IJN: [id number] /
--- NOTE | 2019-03-31 17:56 | LTR ---
March 31, 2019 To: Dr. Marcos Vazquez Re: Jeffreynikki Bisi (74) Dear Dr. Vazquez, I had the pleasure of performing coronary angiography and angioplasty and stenting on Mr. Quintero at [facility] on March 31, 2019. A full copy of the procedure notes will be forwarded to you. In brief, he underwent successful stenting of his proximal LAD. I am hopeful that this procedure will stabilize his status. Thank you again for allowing me to participate in his care. Please feel free to call with any questions. Sincerely yours, Zulema Camarillo MD MMHUONGL / WILBERN: [id number] /
[2019-03-31 20:44] LABS: Glucose,Whole Blood 317 mg/dL (75-99)
[2019-03-31] MEDS ORDERED: INSULIN DETEMIR (LEVEMIR) 100 UNIT/ML SYR SQ SCH (21:00)
[2019-03-31] MEDS: PREGABALIN 75 MG CAP PO SCH (21:08)
[2019-03-31] MEDS: metroNIDAZOLE 500 MG TAB PO SCH (21:08)
[2019-03-31] MEDS: glipiZIDE 10 MG TAB PO SCH (21:08)
[2019-03-31] MEDS: HYDROcodone/APAP 5-325MG 1 EACH TAB PO PRN (21:08)
[2019-04-01 03:37] LABS: African American GFR (CKD) >90 (>60 ml/min/1.73 sqM); Anion Gap 7 mmol/L; Blood Urea Nitrogen 12 mg/dL (9-20); Calcium 8.8 mg/dL (8.4-10.2); Carbon Dioxide 27 mmol/L (22-30); Chloride 101 mmol/L (98-107); Cholesterol 128 mg/dL (<200); Glucose 206 mg/dL (74-99); HDL Cholesterol 22 mg/dL (40-60); Potassium 3.6 mmol/L (3.5-5.1); Sodium 135 mmol/L (137-145); Triglycerides 512 mg/dL (<150)
[2019-04-01] MEDS: INSULIN ASPART (NovoLOG) 100 UNIT/ML VIAL SQ SCH ×2 (06:33→11:58)
[2019-04-01 06:34] LABS: Glucose,Whole Blood 116 mg/dL (75-99)
[2019-04-01] MEDS: NICOTINE 14MG/24HR PATCH TRANSDERM SCH (08:34)
[2019-04-01] MEDS: PREGABALIN 75 MG CAP PO SCH (08:34)
[2019-04-01] MEDS: metroNIDAZOLE 500 MG TAB PO SCH (08:34)
[2019-04-01] MEDS: glipiZIDE 10 MG TAB PO SCH (08:34)
[2019-04-01] MEDS ORDERED: ATORVASTATIN 80 MG TAB PO SCH (09:00)
[2019-04-01] MEDS ORDERED: ASPIRIN 325 MG TAB PO SCH (09:00)
[2019-04-01] MEDS ORDERED: PRASUGREL 10 MG TAB PO SCH (09:00)
[2019-04-01] MEDS ORDERED: LISINOPRIL 2.5 MG TAB PO SCH (09:00)
[2019-04-01] MEDS ORDERED: ASPIRIN 81 MG PO SCH (09:00)
[2019-04-01] MEDS: HYDROcodone/APAP 5-325MG 1 EACH TAB PO PRN (09:04)
[2019-04-01 09:36] VITALS: PULSE 78
[2019-04-01 11:47] LABS: Glucose,Whole Blood 173 mg/dL (75-99)
--- NOTE | 2019-04-01 12:00 | ECHOF ---
Referral Reason:mi MEASUREMENTS -------- HEIGHT: 165.1 cm WEIGHT: 92.1 kg BP: RVIDd: 3.6 cm (< 3.3) IVSd: 1.4 cm (0.6 - 1.1) LVIDd: 3.9 cm (3.9 - 5.3) LVPWd: 1.1 cm (0.6 - 1.1) IVSs: 1.5 cm LVIDs: 2.8 cm LVPWs: 1.5 cm LA Diam: 3.0 cm (2.7 - 3.8) LAESV Index (A-L): 16.84 ml/m Ao Diam: 3.3 cm (2.0 - 3.7) AV Cusp: 2.2 cm (1.5 - 2.6) LA Diam: 3.5 cm (2.7 - 3.8) MV EXCURSION: 21.171 mm (> 18.000) MV EF SLOPE: 108 mm/s (70 - 150) EPSS: 0.6 cm MV E Tano: 1.00 m/s MV DecT: 187 ms MV A Tano: 0.74 m/s MV E/A Ratio: 1.35 RAP: 5.00 mmHg RVSP: 12.14 mmHg TAPSE: 17.70 mm FINDINGS -------- Sinus rhythm. This was a technically adequate study. The left ventricular size is normal. There is mild concentric left ventricular hypertrophy. Overa ll left ventricular systolic function is low-normal with, an EF between 50 - 55 %. The diastolic fi lling pattern is normal for the age of the patient 14.87. Apical septum LV wall motion is hypokinet ic. The right ventricle is normal in size. The left atrial size is normal. Normal LA size by volume 22+/-6 ml/m2. The right atrial size is normal. The aortic valve is trileaflet, and appears structurally normal. No aortic stenosis or regurgitation. Mild mitral annular calcification present. Mild mitral regurgitation is present. Mild tricuspid regurgitation present. Right ventricular systolic pressure is normal at < 35 mmHg. There is no evidence of pulmonary hypertension. There is no pulmonic regurgitation present. The aortic root size is normal. There is no pericardial effusion. CONCLUSIONS -------- 1. Sinus rhythm. 2. This was a technically adequate study. 3. The left ventricular size is normal. 4. There is mild concentric left ventricular hypertrophy. 5. Overall left ventricular systolic function is low-normal with, an EF between 50 - 55 %. 6. The diastolic filling pattern is normal for the age of the patient 14.87 7. Apical septum LV wall motion is hypokinetic. 8. The right ventricle is normal in size. 9. The left atrial size is normal. 10. Normal LA size by volume 22+/-6 ml/m2. 11. The right atrial size is normal. 12. The aortic valve is trileaflet, and appears structurally normal. No aortic stenosis or regurgitat ion. 13. Mild mitral annular calcification present. 14. Mild mitral regurgitation is present. 15. Mild tricuspid regurgitation present. 16. Right ventricular systolic pressure is normal at < 35 mmHg. 17. There is no evidence of pulmonary hypertension. 18. There is no pulmonic regurgitation present. 19. The aortic root size is normal. 20. There is no pericardial effusion. CRISIS COUNSELOR: Sulma Banda RDCS
[2019-04-01 12:16] VITALS: BP 134/86; RESP 16; TEMP 97.8
--- NOTE | 2019-04-01 16:45 | P.PN ---
Subjective Progress Note Date: 04/01/19 This is a pleasant 49-year-old gentleman with known history of prior CAD, diabetes, hypertension, hyperlipidemia, nicotine dependence. Presented to the hospital with symptoms of chest discomfort, he was taken to the cardiac catheterization lab by Dr. Camarillo where he underwent successful stenting of the proximal LAD. He was seen and examined this morning, denied any chest pain, breathing was stable. Echocardiogram with Doppler study showed an ejection fraction of 50-55%. EKG from this morning showed a normal sinus rhythm with no changes from post-PCI. Blood pressure 134/80 with a heart rate in the 70s, 95% on room air. Sodium 135, potassium 3.6, BUN 12, creatinine 0.5. Objective - Vital Signs Vital signs: Vital Signs Temp 97.8 F 04/01/19 12:00 Pulse 78 04/01/19 12:00 Resp 16 04/01/19 12:00 BP 134/86 04/01/19 12:00 Pulse Ox 95 04/01/19 12:00 Intake & Output 03/31/19 04/01/19 04/01/19 18:59 06:59 18:59 Intake Total 1128 490 Output Total 600 Balance 1128 -600 490 Weight 92.351 kg 92 kg Intake: IV 230 10 0.9 10 Intake, IV Titration 200 Amount Sodium Chloride 0.9% 1, 200 000 ml @ 100 mls/hr IV . Q10H [facility] Rx#:[id number] Oral 698 480 Output: Urine 600 Other: Voiding Method Toilet Urinal - Exam PHYSICAL EXAMINATION: GENERAL: 79-year-old gentleman in no acute distress at the time of my examination HEENT: Head is atraumatic, normocephalic. Pupils equal, round. Sclera anicteric. Conjunctiva are clear. Mucous membranes of the mouth are moist. Neck is supple. There is no elevated jugular venous pressure. No carotid bruit is heard. HEART EXAMINATION: Heart S1, S2 normal. No murmur or gallop heard. CHEST EXAMINATION: Lungs are clear to auscultation and precussion. No chest wall tenderness is noted on palpation or with deep breathing. ABDOMEN: Soft, nontender. Bowel sounds are heard. No organomegaly noted. EXTREMITIES: 2+ peripheral pulses with no evidence of peripheral edema and no calf tenderness noted. Right radial site clean and dry, good distal pulse. NEUROLOGIC patient is awake, alert and oriented 3 . - Labs CBC & Chem 7: 03/31/19 05:12 04/01/19 02:48 Labs: Abnormal Lab Results - Last 24 Hours (Table) 03/31/19 03/31/19 03/31/19 Range/Units 16:46 16:55 20:36 Sodium (137-145) mmol/L Creatinine (0.66-1.25) mg/dL Glucose (74-99) mg/dL POC Glucose (mg/dL) 253 H (75-99) mg/dL Troponin I 0.643 H* (0.000-0.034) ng/mL Triglycerides (<150) mg/dL HDL Cholesterol (40-60) mg/dL Ur Specific [place] 1.050 H (1.001-1.035) Urine Glucose (UA) 4+ H (Negative) 03/31/19 04/01/19 04/01/19 Range/Units 20:43 02:45 02:48 Sodium 135 L (137-145) mmol/L Creatinine 0.58 L (0.66-1.25) mg/dL Glucose 206 H (74-99) mg/dL POC Glucose (mg/dL) 317 H (75-99) mg/dL Troponin I 0.419 H* (0.000-0.034) ng/mL Triglycerides 512 H (<150) mg/dL HDL Cholesterol 22 L (40-60) mg/dL Ur Specific [place] (1.001-1.035) Urine Glucose (UA) (Negative) 04/01/19 04/01/19 Range/Units 06:32 11:46 Sodium (137-145) mmol/L Creatinine (0.66-1.25) mg/dL Glucose (74-99) mg/dL POC Glucose (mg/dL) 116 H 173 H (75-99) mg/dL Troponin I (0.000-0.034) ng/mL Triglycerides (<150) mg/dL HDL Cholesterol (40-60) mg/dL Ur Specific [place] (1.001-1.035) Urine Glucose (UA) (Negative) Assessment and Plan Plan: Assessment and plan #1 non-STEMI, status post angioplasty and stenting of the LAD #2 known history of prior CAD #3 diabetes #4 hypertension #5 hyperlipidemia #6 nicotine dependence Plan Patient may be discharged home today, follow-up appointment in the office with Dr. Camarillo post discharge. He's been advised to continue his current medications which include dual antiplatelet therapy, he's also been educated regarding the importance of nicotine cessation. DNP note has been reviewed, I agree with a documented findings and plan of care. Patient was seen and examined.
--- NOTE | 2019-04-01 18:48 | P.DS ---
Providers Date of admission: 03/31/19 06:38 Expected date of discharge: 04/01/19 Attending physician: Navid Rajput Consults: 03/31/19 06:38 Consult Physician Urgent Consulting Provider: Eddie Weston Consult Reason/Comments: Acute coronary syndrome Do you want consulting provider notified?: Already Contacted 03/31/19 13:33 Consult Physician Routine Consulting Provider: [facility] Consult Reason/Comments: Post Interventional patient Do you want consulting provider notified?: Already Contacted [facility] Course: Final Diagnosis Chest pain possible acute non ST segment elevation myocardial infarction History of coronary artery disease/stents Diabetes mellitus type 2 Hyponatremia Continued ongoing nicotine dependence History of hyperlipidemia History of degenerative joint disease Discharge disposition: Patient is being discharged in a stable condition with guarded prognosis to home and will follow up with Dr. Vazquez upon discharge. Patient will also be following up with cardiology Dr. Camarillo in the outpatient setting in one week. Total time taken is 35 minutes. History of present illness This is a 49 year old man that was recently admitted with chest pain and was being monitored closely. Patient underwent cardiac catheterization and was found to have critical stenosis to the proximal LAD and a stent was placed. Cardiology was following closely. Patient is up at the side of the bed in no acute distress today and is looking forward to going home today. Patient states that he has a tooth infection that he was supposed to go to [facility] for but then this happened. Discussed with the patient at length about continuing to not smoke and to follow up with the dentist upon discharge. at the bedside was also informed that she should not be smoking around him as this could lead to him smoking again. Patient states that he does have nicotine patches and Chantix at home. Patient denies any chest pain, shortness of breath, or palpitations at this time. Patient is a febrile. Patient denies any nausea or vomiting and has been tolerating diet. Patient was given refills on his long acting insulin and discussed with the patient about following a strict cardiac/diabetic diet and having more control of blood sugars. Case management assisting in diabetic supplies. Currently patients condition is stable with much improvement and able for discharge today. On exam vital signs are stable. Blood pressure is 134/86, pulse is 78, temp is 97.8 F, 02 is 95% on room air, and respirations are 16. Cardio S1 and S2 are muffled. Respiratory system shows mild expiratory wheezing. Abdomen is soft, obese, and non-tender, nervous system shows no focal deficits and gait is steady. Please refer to the medication reconciliation sheet for a list of medications. Patient Condition at Discharge: Stable Plan - Discharge Summary Discharge Rx Participant: Yes New Discharge Prescriptions: New Insulin Detemir (Levemir) [Levemir] 60 unit SQ HS 30 Days #4 syr Atorvastatin [Lipitor] 80 mg PO DAILY 30 Days #30 tab Nitroglycerin Sl Tabs [Nitrostat] 0.4 mg SUBLINGUAL Q5M PRN #30 tab PRN Reason: Chest Pain HYDROcodone/APAP 5-325MG [Gardner 5-325] 1 each PO Q6HR PRN #12 tab PRN Reason: Pain Lisinopril [Zestril] 2.5 mg PO DAILY 30 Days #30 tab Amoxicillin 500 mg PO BID 10 Days #20 capsule Metoprolol Tartrate 25 mg PO BID 30 Days #60 tab Clopidogrel Bisulfate [Plavix] 300 mg PO ONCE #4 tablet Clopidogrel [Plavix] 75 mg PO DAILY #30 tablet Continue Cyclobenzaprine [Flexeril] 10 mg PO BID PRN 5 Days #10 tab PRN Reason: Muscle Spasm Ergocalciferol [Vitamin D2 (DRISDOL)] 50,000 unit PO Q7D Pregabalin [Lyrica] 75 mg PO BID Aspirin 81 mg PO DAILY 30 Days #30 chew glipiZIDE [Glucotrol] 10 mg PO BID 30 Days #60 tab Discontinued Lisinopril [Zestril] 20 mg PO DAILY Insulin Detemir (Levemir) [Levemir] 60 unit SQ HS Discharge Medication List Cyclobenzaprine [Flexeril] 10 mg PO BID PRN 5 Days #10 tab 09/10/18 [Rx] Ergocalciferol [Vitamin D2 (DRISDOL)] 50,000 unit PO Q7D 03/31/19 [History] Pregabalin [Lyrica] 75 mg PO BID 03/31/19 [History] Amoxicillin 500 mg PO BID 10 Days #20 capsule 04/01/19 [Rx] Aspirin 81 mg PO DAILY 30 Days #30 chew 04/01/19 [Rx] Atorvastatin [Lipitor] 80 mg PO DAILY 30 Days #30 tab 04/01/19 [Rx] Clopidogrel Bisulfate [Plavix] 300 mg PO ONCE #4 tablet 04/01/19 [Rx] Clopidogrel [Plavix] 75 mg PO DAILY #30 tablet 04/01/19 [Rx] HYDROcodone/APAP 5-325MG [Gardner 5-325] 1 each PO Q6HR PRN #12 tab 04/01/19 [Rx] Insulin Detemir (Levemir) [Levemir] 60 unit SQ HS 30 Days #4 syr 04/01/19 [Rx] Lisinopril [Zestril] 2.5 mg PO DAILY 30 Days #30 tab 04/01/19 [Rx] Metoprolol Tartrate 25 mg PO BID 30 Days #60 tab 04/01/19 [Rx] Nitroglycerin Sl Tabs [Nitrostat] 0.4 mg SUBLINGUAL Q5M PRN #30 tab 04/01/19 [Rx] glipiZIDE [Glucotrol] 10 mg PO BID 30 Days #60 tab 04/01/19 [Rx] Follow up Appointment(s)/Referral(s): Zulema Camarillo MD [STAFF PHYSICIAN] - 1 Week (Office will call with follow up appointment. Message left that a Sunday or Sunday appointment is preferred.) Marcos Vazquez MD [Primary Care Provider] - 04/08/19 9:00 am Patient Instructions/Handouts: *Surgery [facility] - After Heart Catheterization - Coal Crus[employer] Operator Instructions, How to Stop Smoking (DC) Activity/Diet/Wound Care/Special Instructions: Activity limited until follow up continue heart healthy diet follow up with cardiology follow up with pcp follow up with dentist avoid tobacco use Discharge/Stand Alone Forms: Work/Release Restrictions Form Discharge Disposition: HOME SELF-CARE
--- NOTE | 2019-04-02 05:30 | DS ---
DISCHARGE SUMMARY FINAL DIAGNOSIS: 1. Chest pain possible acute non ST segment elevation myocardial infarction with troponin 0.128, status post cardiac catheterization and stenting of the proximal LAD with reduction of stenosis 99% to 0%. The other diagnoses: 1. History of coronary artery disease, stent. 2. Diabetes mellitus type 2. 3. Hyponatremia. 4. Continued ongoing nicotine dependence. 5. History of hyperlipidemia. 6. History of degenerative joint disease. DISCHARGE DISPOSITION: The patient will be discharged in stable condition with guarded prognosis. Discharge cleared by Cardiology. HISTORY OF PRESENT ILLNESS: This 49-year-old gentleman with a past medical history of multiple medical problems as mentioned above, followed by Dr. Vazquez in the outpatient setting, admitted with chest pain. The patient had features of acute non ST segment elevation myocardial infarction. Cardiac catheterization showed LAD stenosis and stent was placed with improvement of the stenosis. Please refer to cardiology notes for further details. Otherwise, patient improved significantly. Cardiology cleared the patient for discharge. The patient will be discharged in stable condition with guarded prognosis with the following advice. On exam, vitals are stable. CARDIOVASCULAR: S1, S2 muffled. ABDOMEN: Soft. NERVOUS SYSTEM: No focal deficits. DISCHARGE ADVICE AND MEDICATIONS: 1. Diet is cardiac. 2. Activity limited until followup. 3. Follow up with Dr. Vazquez in 2 to 3 days. 4. Follow up with Cardiology as recommended. The medications are: 1. Lyrica 75 mg p.o. b.i.d. 2. Drisdol 50,000 p.o. q.7 days. 3. Amoxicillin 500 mg p.o. b.i.d. for 5 days. 4. Aspirin 81 mg p.o. daily. 5. Effient 10 mg p.o. daily. 6. Flexeril 10 mg p.o. b.i.d. p.r.n. 7. Glucotrol 10 mg p.o. b.i.d. 8. Levemir 60 units subcu q.h.s. 9. Lipitor 80 mg p.o. daily. 10.Metoprolol 25 mg p.o. b.i.d. 11.Nitroglycerin 0.4 sublingual p.r.n. 12.Hydrocodone 5 mg q.6 p.r.n. 13.Zestril 2.5 mg p.o. daily. Once again, the patient will be discharged in stable condition with guarded prognosis. MMHUONGL / IJN: [id number] /
== END 2019-04-01 15:31 | disposition home or self-care (01) | DRG 247 ==
LOC: EC 05:06 → 3SCARD 06:38
PROVIDERS: ADMIT Hospitalist; ATTEND Hospitalist
PROC: B2111ZZ Fluoroscopy of Multiple Coronary Arteries using Low Osmolar Contrast (ICD-10-PCS; 2019-03-31)
PROC: B2151ZZ Fluoroscopy of Left Heart using Low Osmolar Contrast (ICD-10-PCS; 2019-03-31)
PROC: 027034Z Dilation of Coronary Artery, One Artery with Drug-eluting Intraluminal Device, Percutaneous Approach (ICD-10-PCS; principal; 2019-03-31 11:25)
PROC: 4A023N7 Measurement of Cardiac Sampling and Pressure, Left Heart, Percutaneous Approach (ICD-10-PCS; 2019-03-31 11:25)
DX: I21.4 Non-ST elevation (NSTEMI) myocardial infarction (principal); E87.1 Hypo-osmolality and hyponatremia; E11.9 Type 2 diabetes mellitus without complications; E66.9 Obesity, unspecified; E78.5 Hyperlipidemia, unspecified; F17.200 Nicotine dependence, unspecified, uncomplicated; I10 Essential (primary) hypertension; I25.10 Atherosclerotic heart disease of native coronary artery without angina pectoris; K04.7 Periapical abscess without sinus; M19.90 Unspecified osteoarthritis, unspecified site; Z68.32 Body mass index [BMI] 32.0-32.9, adult; Z79.899 Other long term (current) drug therapy; Z79.02 Long term (current) use of antithrombotics/antiplatelets; Z79.4 Long term (current) use of insulin; Z79.82 Long term (current) use of aspirin; Z95.5 Presence of coronary angioplasty implant and graft; Z82.49 Family history of ischemic heart disease and other diseases of the circulatory system; Z83.3 Family history of diabetes mellitus
CPT/HCPCS: 36415; 71046; 80048; 80053; 80061; 81003; 83735; 84484; 85025; 85379; 85610; 85730; 93005; 93306; 93458; 96374; 96375; 99285; C1874

== ENCOUNTER → 2020-02-09 | Outpatient (CLI) | payer OTHER ==
--- NOTE | 2020-02-09 13:53 | XR ---
EXAMINATION TYPE: XR knee complete RT DATE OF EXAM: 02/09/2020 CLINICAL HISTORY: pain TECHNIQUE: Three views of the right knee are obtained. COMPARISON: None. FINDINGS: There is no acute fracture/dislocation. The tri-compartment joint spaces appear within no rmal limits. Postoperative changes with intramedullary tibial paul. Small suprapatellar joint effusio n noted. The overlying soft tissue appears unremarkable. IMPRESSION: There is no acute fracture or dislocation.ICD 10 NO FRACTURE, INITIAL EVALUATION
== END | disposition home or self-care (01) ==
LOC: RADXRMAIN 13:24
PROVIDERS: ATTEND Emergency Medicine
DX: S80.01XA Contusion of right knee, initial encounter (principal)

== ENCOUNTER 2020-03-29 13:44 | Observation (INO) | payer OTHER ==
[2020-03-29] MEDS ORDERED: ASPIRIN 81 MG PO STA (14:02)
[2020-03-29] MEDS ORDERED: NITROGLYCERIN OINT 1 INCH/GM PACKET TOPICAL STA (14:02)
--- NOTE | 2020-03-29 14:07 | ED ---
General Adult HPI - General Chief complaint: Chest Pain Stated complaint: Poss Carbon Monoxide Poisoning Time Seen by Provider: 03/29/20 13:45 Source: patient, RN notes reviewed, old records reviewed Mode of arrival: ambulatory Limitations: no limitations - History of Present Illness Initial comments: This is a 50-year-old male who presents emergency Department with a past medical history significant for 2 coronary artery stents, diabetes, high blood pressure, and high cholesterol. Patient states he continues to smoke as well per patient states for the last week is been having intermittent chest pain. Patient states it comes and goes especially with exertion. Patient denies any fever chills or cough but he does have shortness of breath. It does worsen with the chest pain. Patient is chest pain radiates to his back. Patient denies any diaphoretic episodes. Patient denies lightheadedness dizziness or near syncopal episode. Patient denies any abdominal pain. Patient denies any recent injury or trauma. Patient states someone said something at his hotel that there was no carbon monoxide issues. - Related Data Home Medications Medication Instructions Recorded Confirmed Pregabalin [Lyrica] 75 mg PO BID 03/31/19 03/29/20 Albuterol Sulfate [Ventolin HFA] 2 puff INHALATION RT-Q6H PRN 03/29/20 03/29/20 Previous Rx's Medication Instructions Recorded Aspirin 81 mg PO DAILY 30 Days #30 chew 04/01/19 Clopidogrel [Plavix] 75 mg PO DAILY #30 tablet 04/01/19 Nitroglycerin Sl Tabs [Nitrostat] 0.4 mg SUBLINGUAL Q5M PRN #30 tab 04/01/19 glipiZIDE [Glucotrol] 10 mg PO BID 30 Days #60 tab 04/01/19 lisinopriL [Zestril] 2.5 mg PO DAILY 30 Days #30 tab 04/01/19 Allergies Allergy/AdvReac Type Severity Reaction Status Date / Time No Known Allergies Allergy Verified 03/29/20 14:39 Review of Systems ROS Statement: Those systems with pertinent positive or pertinent negative responses have been documented in the HPI. ROS Other: All systems not noted in ROS Statement are negative. Past Medical History Past Medical History: Coronary Artery Disease (CAD), Chest Pain / Angina, Diabetes Mellitus, Hyperlipidemia History of Any Multi-Drug Resistant Organisms: None Reported Past Surgical History: Heart Catheterization With Stent, Orthopedic Surgery Additional Past Surgical History / Comment(s): stents placed to LAD and RCA 09/2016 Past Anesthesia/Blood Transfusion Reactions: No Reported Reaction Date of Last Stent Placement:: 09/2016 Past Psychological History: No Psychological Hx Reported Smoking Status: Current every day smoker Past Alcohol Use History: None Reported Past Drug Use History: None Reported - Past Family History Father Family Medical History: Coronary Artery Disease (CAD) Additional Family Medical History / Comment(s): Greatgrandmother had diabetes General Exam - General Exam Comments Initial Comments: GENERAL: Patient is well-developed and well-nourished. Patient is nontoxic and well- hydrated and is in mild distress. ENT: Neck is soft and supple. No significant lymphadenopathy is noted. Oropharynx is clear. Moist mucous membranes. Neck has full range of motion without eliciting any pain. EYES: The sclera were anicteric and conjunctiva were pink and moist. Extraocular movements were intact and pupils were equal round and reactive to light. Eyelids were unremarkable. PULMONARY: Unlabored respirations. Good breath sounds bilaterally. No audible rales rhonchi or wheezing was noted. CARDIOVASCULAR: There is a regular rate and rhythm without any murmurs gallops or rubs. ABDOMEN: Soft and nontender with normal bowel sounds. SKIN: Skin is clear with no lesions or rashes and otherwise unremarkable. NEUROLOGIC: Patient is alert and oriented x3. Cranial nerves II through XII are grossly intact. Motor and sensory are also intact. Normal speech, volume and content. Symmetrical smile. MUSCULOSKELETAL: Normal extremities with adequate strength and full range of motion. LYMPHATICS: No significant lymphadenopathy is noted PSYCHIATRIC: Normal psychiatric evaluation. Limitations: no limitations Course Vital Signs 03/29/20 13:47 Temperature 97.7 F Pulse Rate 101 H Respiratory 20 Rate Blood Pressure 127/79 O2 Sat by Pulse 99 Oximetry Medical Decision Making - Medical Decision Making EKG shows normal sinus rhythm at 94 bpm NV interval 130 QRS is 82 QT interval 300 QTC is 375. Patient's EKG shows no ST segment elevation or depression ho wever there T-wave inversions in the inferiorly to 3 and aVF. Patient states the nitroglycerin helped remove his pain. Chest x-ray shows no acute abnormality. I spoke with the [facility]ist agreed to admit the patient admitted the patient wrote admitting orders I continued heparin and aspirin and Nitropaste on the floor - Lab Data Result diagrams: 03/29/20 14:25 03/29/20 14:25 Lab Results 03/29/20 03/29/20 03/29/20 Range/Units 14:25 14:25 14:25 WBC 8.6 (3.8-10.6) k/uL RBC 5.48 (4.30-5.90) m/uL Hgb 17.0 (13.0-17.5) gm/dL Hct 48.1 (39.0-53.0) % MCV 87.7 (80.0-100.0) fL MCH 30.9 (25.0-35.0) pg MCHC 35.3 (31.0-37.0) g/dL RDW 14.1 (11.5-15.5) % Plt Count 282 (150-450) k/uL Neutrophils % 64 % Lymphocytes % 28 % Monocytes % 5 % Eosinophils % 1 % Basophils % 1 % Neutrophils # 5.5 (1.3-7.7) k/uL Lymphocytes # 2.4 (1.0-4.8) k/uL Monocytes # 0.4 (0-1.0) k/uL Eosinophils # 0.1 (0-0.7) k/uL Basophils # 0.1 (0-0.2) k/uL Carbon Monoxide, Quant 7.4 (<10.0) % Sodium 125 L (137-145) mmol/L Potassium 4.7 (3.5-5.1) mmol/L Chloride 94 L (98-107) mmol/L Carbon Dioxide 19 L (22-30) mmol/L Anion Gap 12 mmol/L BUN 11 (9-20) mg/dL Creatinine 0.47 L (0.66-1.25) mg/dL Est GFR (CKD-EPI)AfAm >90 (>60 ml/min/1.73 sqM) Est GFR (CKD-EPI)NonAf >90 (>60 ml/min/1.73 sqM) Glucose 438 H (74-99) mg/dL POC Glucose (mg/dL) (75-99) mg/dL POC [employer]st ID Calcium 8.8 (8.4-10.2) mg/dL Magnesium 1.7 (1.6-2.3) mg/dL Total Bilirubin 0.8 (0.2-1.3) mg/dL AST 22 (17-59) U/L ALT 17 (4-49) U/L Alkaline Phosphatase 103 (38-126) U/L Total Protein 7.1 (6.3-8.2) g/dL Albumin 3.9 (3.5-5.0) g/dL 03/29/20 Range/Units 14:30 WBC (3.8-10.6) k/uL RBC (4.30-5.90) m/uL Hgb (13.0-17.5) gm/dL Hct (39.0-53.0) % MCV (80.0-100.0) fL MCH (25.0-35.0) pg MCHC (31.0-37.0) g/dL RDW (11.5-15.5) % Plt Count (150-450) k/uL Neutrophils % % Lymphocytes % % Monocytes % % Eosinophils % % Basophils % % Neutrophils # (1.3-7.7) k/uL Lymphocytes # (1.0-4.8) k/uL Monocytes # (0-1.0) k/uL Eosinophils # (0-0.7) k/uL Basophils # (0-0.2) k/uL Carbon Monoxide, Quant (<10.0) % Sodium (137-145) mmol/L Potassium (3.5-5.1) mmol/L Chloride (98-107) mmol/L Carbon Dioxide (22-30) mmol/L Anion Gap mmol/L BUN (9-20) mg/dL Creatinine (0.66-1.25) mg/dL Est GFR (CKD-EPI)AfAm (>60 ml/min/1.73 sqM) Est GFR (CKD-EPI)NonAf (>60 ml/min/1.73 sqM) Glucose (74-99) mg/dL POC Glucose (mg/dL) 466 H (75-99) mg/dL POC [employer]st ID Eugenie Singh Calcium (8.4-10.2) mg/dL Magnesium (1.6-2.3) mg/dL Total Bilirubin (0.2-1.3) mg/dL AST (17-59) U/L ALT (4-49) U/L Alkaline Phosphatase (38-126) U/L Total Protein (6.3-8.2) g/dL Albumin (3.5-5.0) g/dL Critical Care Time Critical Care Time: Yes Total Critical Care Time: 35 Disposition Clinical Impression: Unstable angina pectoris Disposition: ADMITTED IP TO THIS HOSP Referrals: Marcos Vazquez MD [Primary Care Provider] - 1-2 days Time of Disposition: 15:19
[2020-03-29] MEDS ORDERED: NICOTINE 21MG/24HR PATCH TRANSDERM STA (14:25)
[2020-03-29 14:34] LABS: Glucose,Whole Blood 466 mg/dL (75-99)
[2020-03-29 14:47] LABS: Basophils # (A) 0.1 k/uL (0-0.2); Basophils % (A) 1 %; Eosinophils # (A) 0.1 k/uL (0-0.7); Eosinophils % (A) 1 %; HCT 48.1 % (39.0-53.0); Lymphocytes # (A) 2.4 k/uL (1.0-4.8); Lymphocytes % (A) 28 %; MCH 30.9 pg (25.0-35.0); MCHC 35.3 g/dL (31.0-37.0); MCV 87.7 fL (80.0-100.0); Mean Platelet Volume 6.9; Monocytes # (A) 0.4 k/uL (0-1.0); Monocytes % (A) 5 %; Neutrophils # (A) 5.5 k/uL (1.3-7.7); Neutrophils % (A) 64 %; Platelet Count 282 k/uL (150-450); RBC 5.48 m/uL (4.30-5.90); RDW 14.1 % (11.5-15.5); WBC 8.6 k/uL (3.8-10.6)
--- NOTE | 2020-03-29 14:48 | XR ---
EXAMINATION TYPE: XR chest 2V DATE OF EXAM: 03/29/2020 COMPARISON: 03/31/2019 TECHNIQUE: PA and lateral views submitted. HISTORY: Chest pain FINDINGS: Heart size is normal. There is a coarsened interstitium. No pleural effusion or pneumothorax. No cons olidative process. IMPRESSION: 1. Correlate for bronchitis or interstitial pneumonitis..
[2020-03-29 15:06] LABS: ALT 17 U/L (4-49); AST 22 U/L (17-59); African American GFR (CKD) >90 (>60 ml/min/1.73 sqM); Albumin 3.9 g/dL (3.5-5.0); Alkaline Phosphatase 103 U/L (38-126); Anion Gap 12 mmol/L; Blood Urea Nitrogen 11 mg/dL (9-20); Calcium 8.8 mg/dL (8.4-10.2); Carbon Dioxide 19 mmol/L (22-30); Chloride 94 mmol/L (98-107); Glucose 438 mg/dL (74-99); Magnesium 1.7 mg/dL (1.6-2.3); Non-African American GFR(CKD) >90 (>60 ml/min/1.73 sqM); Sodium 125 mmol/L (137-145); Total Bilirubin 0.8 mg/dL (0.2-1.3); Total Protein 7.1 g/dL (6.3-8.2)
[2020-03-29 15:07] LABS: Potassium 4.7 mmol/L (3.5-5.1)
[2020-03-29] MEDS ORDERED: NITROGLYCERIN SL TABS 0.4 MG TAB SUBLINGUAL PRN ×2 (15:19→18:02)
[2020-03-29] MEDS ORDERED: HEPARIN SODIUM,PORCINE 5,000 UNIT/ML 1 ML VIAL IV ONE (15:26)
[2020-03-29] MEDS ORDERED: HEPARIN SOD,PORK IN 0.45% NACL 25,000 UNIT in 0.45% NACL 1 250ML.BAG IV SCH (15:30)
[2020-03-29 15:32] LABS: Partial Thromboplastin Time 25.1 sec (22.0-30.0)
[2020-03-29] MEDS ORDERED: INSULIN ASPART (NovoLOG) 100 UNIT/ML VIAL SQ ONE (15:43)
[2020-03-29] MEDS ORDERED: INFLUENZA VACCINE (6 MOS+) 60 MCG/0.5 ML SYRINGE IM ONE (16:04)
[2020-03-29 17:26] LABS: Glucose,Whole Blood 390 mg/dL (75-99)
[2020-03-29] MEDS: INSULIN ASPART (NovoLOG) 100 UNIT/ML VIAL SQ SCH ×2 (17:35→22:49)
[2020-03-29] MEDS: NITROGLYCERIN OINT 1 INCH/GM PACKET TOPICAL SCH (17:35)
[2020-03-29] MEDS ORDERED: ALBUTEROL NEBULIZED 2.5 MG/3 ML INHALATION PRN (18:02)
[2020-03-29] MEDS ORDERED: HYDROmorphone 0.5 MG/0.5 ML SYRINGE IVP PRN (18:02)
[2020-03-29 18:37] LABS: Prothrombin Time 10.4 sec (9.0-12.0)
[2020-03-29] MEDS: HYDROcodone/APAP 5-325MG 1 EACH TAB PO PRN (19:03)
[2020-03-29 21:21] LABS: C Reactive Protein 5.4 mg/L (<10.0)
[2020-03-29 22:46] LABS: Glucose,Whole Blood 345 mg/dL (75-99)
[2020-03-29] MEDS: PREGABALIN 75 MG CAP PO SCH (22:48)
[2020-03-29] MEDS: glipiZIDE 10 MG TAB PO SCH (22:49)
[2020-03-29] MEDS: HEPARIN SODIUM,PORCINE 5,000 UNIT/ML 1 ML VIAL IV PRN (22:52)
--- NOTE | 2020-03-29 23:27 | HP ---
HISTORY AND PHYSICAL DATE OF SERVICE: 03/29/2020 CHIEF COMPLAINT: Chest pain. HISTORY OF PRESENT ILLNESS: This 50-year-old gentleman with a past medical history of CAD, history of diabetes, hypertension, hyperlipidemia, history of myocardial infarction, history of CAD, stent, history of right knee fracture, being followed by Dr. Vazquez in the outpatient setting, was complaining of chest pain. The pain was felt in the left side of the chest. It has been intermittent over the last week. It was also getting worse with exertion, and the patient came to [facility] and was admitted for further evaluation and treatment. The carbon monoxide issues also will be noted in the chart at this location, and the blood sugar level was also elevated. Carbon monoxide level was only 7.4% and blood sugar was elevated at 430. Insulin was begun. There is no history of any fever, rigor or chills. No history of headache, loss of consciousness, seizures. PAST MEDICAL HISTORY: History of CAD, diabetes mellitus, hypertension, hyperlipidemia, myocardial infarction, history of CAD and stent. HOME MEDICATIONS: Albuterol, Zestril, Glucotrol, Lyrica, Nitrostat, Plavix, aspirin. ALLERGIES: NONE. FAMILY HISTORY: History of CAD. SOCIAL HISTORY: Occasional alcohol intake. History of continued smoking, reducing in amount. REVIEW OF SYSTEMS: ENT: No diminished hearing. No diminished vision. CARDIOVASCULAR SYSTEM: As mentioned earlier. RESPIRATORY SYSTEM: As mentioned earlier. GI: No nausea, vomiting. : No dysuria or retention. NERVOUS SYSTEM: No numbness, weakness. ALLERGY/IMMUNOLOGY: No asthma, hayfever. MUSCULOSKELETAL: As mentioned earlier. HEMATOLOGY/ONCOLOGY: No history of anemia. ENDOCRINE: Diabetes. CONSTITUTIONAL: As mentioned earlier. DERMATOLOGY: Negative. RHEUMATOLOGY: Negative. PSYCHIATRY: As mentioned earlier. PHYSICAL EXAMINATION: Patient alert and oriented x3. Pulse is 101, blood pressure 127/79, respiration 20, temperature 97.7, pulse ox 99% on room air. HEENT: Conjunctivae normal. Oral mucosa moist. NECK: No jugular venous distention. No carotid bruit. No lymph node enlargement. CARDIOVASCULAR SYSTEM: S1, S2 muffled. No S3. No S4. RESPIRATORY SYSTEM: Breath sounds diminished at the bases. Scattered rhonchi and crackles. ABDOMEN: Soft, non-tender. No mass palpable. LEGS: No edema. No swelling. NERVOUS SYSTEM: Higher functions as mentioned earlier. Moves all 4 limbs. No focal motor or sensory deficit. LYMPHATICS: No lymph node palpable in neck, axillae or groin. SKIN: No ulcer, rash, bleeding. JOINTS: No active deforming arthropathy. LABS/IMAGING: Sodium 125, glucose 430. Troponins are negative. EKG, which I reviewed personally, showed ST-T changes and R-waves in the anterior leads. Chest x-ray showed some bronchitis versus interstitial pneumonitis. ASSESSMENT: 1. Chest pain, possible unstable angina. 2. Rule out pneumonia. 3. History of coronary artery disease, stent. 4. History of diabetes mellitus, type 2. 5. Hypertension. 6. Hyperlipidemia. 7. Continued ongoing nicotine dependence. 8. History of degenerative joint disease, back pain. 9. Hyponatremia. RECOMMENDATIONS AND DISCUSSION: In this 50-year-old gentleman who presented with multiple medical issues, we will monitor the patient closely, continue the current medications, continue symptomatic treatment. Will resume the home medications. Patient was taking Glucotrol at home. Will check hemoglobin A1c. He might be a candidate for influenza. Cardiology consultation. I would also recommend a CT scan of the lungs and also order inflammatory markers and COVID-19 as well. Prognosis guarded because of multiple complex medical issues. Further recommendations to follow. See orders for further details. A copy of this dictation is being forwarded to Dr. Vazquez, who is the primary physician. MMHUONGL / WILBERN: [id number] /
[2020-03-30 00:11] LABS: Appearance,Urine Clear (Clear); Bilirubin,Urine Negative (Negative); Blood,Urine Negative (Negative); Color,Urine Light Yellow; Glucose,Urine (UA) 4+ (Negative); Ketones,Urine 1+ (Negative); Leukocyte Esterase,Urine Negative (Negative); Nitrite,Urine Negative (Negative); PH, Urine 6.5 (5.0-8.0); Protein,Urine Negative (Negative); Specific Gravity,Urine 1.034 (1.001-1.035); Urobilinogen,Urine <2.0 mg/dL (<2.0)
[2020-03-30 03:40] LABS: Basophils # (A) 0.1 k/uL (0-0.2); Basophils % (A) 1 %; Eosinophils # (A) 0.1 k/uL (0-0.7); Eosinophils % (A) 1 %; HCT 43.9 % (39.0-53.0); Lymphocytes # (A) 3.8 k/uL (1.0-4.8); Lymphocytes % (A) 40 %; MCV 90.7 fL (80.0-100.0); Mean Platelet Volume 6.9; Monocytes # (A) 0.6 k/uL (0-1.0); Monocytes % (A) 6 %; Neutrophils # (A) 4.6 k/uL (1.3-7.7); Neutrophils % (A) 48 %; Platelet Count 299 k/uL (150-450); RBC 4.84 m/uL (4.30-5.90); WBC 9.6 k/uL (3.8-10.6)
[2020-03-30 03:48] LABS: African American GFR (CKD) >90 (>60 ml/min/1.73 sqM); Anion Gap 9 mmol/L; Blood Urea Nitrogen 16 mg/dL (9-20); Calcium 8.5 mg/dL (8.4-10.2); Carbon Dioxide 22 mmol/L (22-30); Chloride 96 mmol/L (98-107); Cholesterol 303 mg/dL (<200); Glucose 333 mg/dL (74-99); HDL Cholesterol 21 mg/dL (40-60); Non-African American GFR(CKD) >90 (>60 ml/min/1.73 sqM); Potassium 4.7 mmol/L (3.5-5.1); Sodium 127 mmol/L (137-145)
[2020-03-30 03:50] LABS: MCH 30.8 pg (25.0-35.0); MCHC 34.2 g/dL (31.0-37.0)
[2020-03-30 04:35] LABS: Triglycerides 4307 mg/dL (<150)
[2020-03-30] MEDS: HEPARIN SODIUM,PORCINE 5,000 UNIT/ML 1 ML VIAL IV PRN (04:47)
[2020-03-30] MEDS: NITROGLYCERIN OINT 1 INCH/GM PACKET TOPICAL SCH ×2 (06:58→07:03)
[2020-03-30 07:04] LABS: Glucose,Whole Blood 330 mg/dL (75-99)
[2020-03-30] MEDS: INSULIN ASPART (NovoLOG) 100 UNIT/ML VIAL SQ SCH ×4 (07:06→20:05)
[2020-03-30] MEDS: HYDROcodone/APAP 5-325MG 1 EACH TAB PO PRN ×3 (07:39→22:59)
[2020-03-30] MEDS: CLOPIDOGREL 75 MG TAB PO SCH (07:40)
[2020-03-30] MEDS: PREGABALIN 75 MG CAP PO SCH ×2 (07:40→20:05)
[2020-03-30] MEDS: ASPIRIN 81 MG PO SCH (07:40)
[2020-03-30] MEDS ORDERED: ASPIRIN 325 MG TAB PO SCH (09:00)
[2020-03-30] MEDS ORDERED: ATORVASTATIN 80 MG TAB PO SCH (09:00)
[2020-03-30] MEDS ORDERED: DOBUTamine DRIP for NUC MED 500 MG in DEXTROSE/WATER 1 250ML.BAG IV ONE (09:32)
--- NOTE | 2020-03-30 09:33 | P.CRDCN ---
History of Present Illness Consult date: 03/30/20 Consult reason: chest pain Chief complaint: chest pain History of present illness: this is a 50-year-old gentleman with documented history of hypertension, diabetes, hyperlipidemia, nicotine dependence, coronary artery disease with prior RCA and LAD stenting, the most recent stent was performed in March 2019 at which time patient underwent subsequent LAD stenting. He presents to the hospital on this occasion with symptoms of left-sided chest pain, pressure sensation which the patient has been experiencing for 2 weeks. He states that he only notices the symptoms when he takes a cough or tries to take a deep breath. Patient also complains this morning of headache. Continues to have the discomfort in the chest when he coughs. Chest x-ray on presentation here showed bronchitis or interstitial pneumonitis. EKG on presentation here showed normal sinus rhythm with inferior lateral ST-T wave changes which appear to be new as compared with prior EKGs. Patient did have an echocardiogram with Doppler study performed in March 2019 which revealed an ejection fraction of 50-55%. White blood cell count 9.6, hemoglobin 15, platelet count 299. Sodium on admission 127, potassium 4.7, BUN 16 and creatinine 0.5.d-dimer 0.17. Troponins were negative 3, cholesterol 303, triglycerides 4307, HDL 21. Blood pressure 113/70 with a heart rate in the 80s respirations 20. We will discontinue the patient's IV heparin, add Lipitor 80 to his medication regime, obtain an echocardiogram with Doppler study, discontinue the Nitropaste. We will also schedule the patient today to undergo a stress echocardiographic study. Past Medical History Past Medical History: Coronary Artery Disease (CAD), Chest Pain / Angina, Diabetes Mellitus, Hyperlipidemia, Hypertension, Myocardial Infarction (NV) Additional Past Medical History / Comment(s): NV 03/2019, NIDDM type II, chronic low back pain, recent R knee injury. Last Myocardial Infarction Date:: 03/31/19 History of Any Multi-Drug Resistant Organisms: None Reported Past Surgical History: Heart Catheterization With Stent, Orthopedic Surgery Additional Past Surgical History / Comment(s): PCI with stents, R knee fracture with surgery/pins and paul. Past Anesthesia/Blood Transfusion Reactions: No Reported Reaction Date of Last Stent Placement:: 03/31/19 Smoking Status: Current every day smoker - Past Family History Father Family Medical History: Coronary Artery Disease (CAD) Additional Family Medical History / Comment(s): Father had MIs-pt does not recall at what age father had his first NV Mother Additional Family Medical History / Comment(s): Mother committed suicide. Medications and Allergies Home Medications Medication Instructions Recorded Confirmed Type Pregabalin [Lyrica] 75 mg PO BID 03/31/19 03/29/20 History Aspirin 81 mg PO DAILY 30 Days #30 chew 04/01/19 03/29/20 Rx Clopidogrel [Plavix] 75 mg PO DAILY #30 tablet 04/01/19 03/29/20 Rx Nitroglycerin Sl Tabs [Nitrostat] 0.4 mg SUBLINGUAL Q5M PRN #30 tab 04/01/19 03/29/20 Rx glipiZIDE [Glucotrol] 10 mg PO BID 30 Days #60 tab 04/01/19 03/29/20 Rx lisinopriL [Zestril] 2.5 mg PO DAILY 30 Days #30 tab 04/01/19 03/29/20 Rx Albuterol Sulfate [Ventolin HFA] 2 puff INHALATION RT-Q6H PRN 03/29/20 03/29/20 History Allergies Allergy/AdvReac Type Severity Reaction Status Date / Time No Known Allergies Allergy Verified 03/29/20 14:39 Physical Exam Vitals: Vital Signs Temp Pulse Pulse Resp BP BP Pulse Ox 03/30/20 08:13 88 16 03/30/20 07:39 84 03/30/20 07:37 97.1 F L 88 16 118/72 96 03/30/20 07:29 88 03/30/20 04:45 97.7 F 96 18 113/73 94 L 03/29/20 22:00 98.1 F 87 20 103/62 94 L 03/29/20 15:30 93 18 121/78 96 03/29/20 13:47 97.7 F 101 H 20 127/79 99 Intake and Output 03/29/20 03/30/20 03/30/20 22:59 06:59 14:59 Intake Total 72.145 75.254 0 Output Total 0 Balance 72.145 75.254 0 Intake: Intake, IV Titration 72.145 75.254 Amount Heparin Sod,Pork in 0.45% 72.145 75.254 NaCl 25,000 unit In 0.45 % NaCl 1 250ml.bag @ 11. 02 UNITS/KG/HR 9.997 mls/ hr IV .Q24H [facility] Rx#: [id number] Blood Product 0 Output: Urine 0 Other: Voiding Method Toilet Toilet Toilet # Voids 1 0 Weight 90.718 kg PHYSICAL EXAMINATION: GENERAL:50-year-old gentleman in no acute distress at the time of my examination HEENT: Head is atraumatic, normocephalic. Pupils equal, round. Sclera anicteric. Conjunctiva are clear. Mucous membranes of the mouth are moist. Neck is supple. There is no elevated jugular venous pressure.no carotid bruit is heard. HEART EXAMINATION: [Heart S1, S2 normal. No murmur or gallop heard.] CHEST EXAMINATION:[ Lungs are clear to auscultation and precussion. No chest wall tenderness is noted on palpation or with deep breathing.] ABDOMEN: [ Soft, nontender. Bowel sounds are heard. No organomegaly noted]. EXTREMITIES:[ 2+ peripheral pulses with no evidence of peripheral edema and no calf tenderness noted]. NEUROLOGIC [patient is awake, alert and oriented 3.] . Results 03/30/20 02:44 03/30/20 02:44 Cardiac Enzymes 03/29/20 03/29/20 03/29/20 Range/Units 14:25 14:25 17:35 AST 22 (17-59) U/L Lactate Dehydrogenase (313-618) U/L Troponin I 0.020 <0.012 (0.000-0.034) ng/mL 03/29/20 03/29/20 Range/Units 20:43 20:43 AST (17-59) U/L Lactate Dehydrogenase 286 L (313-618) U/L Troponin I <0.012 (0.000-0.034) ng/mL Coagulation 03/29/20 03/29/20 03/29/20 Range/Units 14:25 17:35 20:43 PT 10.4 (9.0-12.0) sec APTT 25.1 26.6 (22.0-30.0) sec 03/30/20 03/30/20 Range/Units 02:44 07:12 PT (9.0-12.0) sec APTT 33.8 H 54.8 H (22.0-30.0) sec Lipids 03/30/20 Range/Units 02:44 Triglycerides 4307 H (<150) mg/dL Cholesterol 303 H (<200) mg/dL HDL Cholesterol 21 L (40-60) mg/dL CBC 03/29/20 03/30/20 Range/Units 14:25 02:44 WBC 8.6 9.6 (3.8-10.6) k/uL RBC 5.48 4.84 (4.30-5.90) m/uL Hgb 17.0 15.0 (13.0-17.5) gm/dL Hct 48.1 43.9 (39.0-53.0) % Plt Count 282 299 (150-450) k/uL Comprehensive Metabolic Panel 03/29/20 03/30/20 Range/Units 14:25 02:44 Sodium 125 L 127 L (137-145) mmol/L Potassium 4.7 4.7 (3.5-5.1) mmol/L Chloride 94 L 96 L (98-107) mmol/L Carbon Dioxide 19 L 22 (22-30) mmol/L BUN 11 16 (9-20) mg/dL Creatinine 0.47 L 0.52 L (0.66-1.25) mg/dL Glucose 438 H 333 H (74-99) mg/dL Calcium 8.8 8.5 (8.4-10.2) mg/dL AST 22 (17-59) U/L ALT 17 (4-49) U/L Alkaline Phosphatase 103 (38-126) U/L Total Protein 7.1 (6.3-8.2) g/dL Albumin 3.9 (3.5-5.0) g/dL Current Medications Generic Name Dose Route Start Last Admin Trade Name Freq PRN Reason Stop Dose Admin Hydrocodone Bitart/Acetaminophen 1 each 03/29/20 18:01 03/30/20 07:39 Hydrocodone/Apap 5-325mg 1 Each Tab PO 1 each Q6HR PRN Administration Pain Albuterol Sulfate 2.5 mg 03/29/20 18:02 03/30/20 07:29 Albuterol Nebulized 2.5 Mg/3 Ml INHALATION 2.5 mg RT-Q6H PRN Administration Shortness Of Breath Aspirin 81 mg 03/30/20 09:00 10/06/20 07:40 Aspirin 81 Mg PO 81 mg DAILY [facility] Administration Atorvastatin Calcium 80 mg 03/30/20 09:00 Atorvastatin 80 Mg Tab PO DAILY [facility] Azithromycin 500 mg 03/30/20 09:00 Azithromycin 500 Mg Tab PO DAILY [facility] Clopidogrel Bisulfate 75 mg 03/30/20 09:00 03/30/20 07:40 Clopidogrel 75 Mg Tab PO 75 mg DAILY [facility] Administration Glipizide 10 mg 03/29/20 21:00 03/29/20 22:49 Glipizide 10 Mg Tab PO 10 mg AC-BID [facility] Administration Hydromorphone HCl 0.5 mg 03/29/20 18:02 03/29/20 21:49 Hydromorphone 0.5 Mg/0.5 Ml Syringe IVP 0.5 mg Q6HR PRN Administration Pain Insulin Aspart 0 unit 03/29/20 17:30 03/30/20 07:06 Insulin Aspart (Novolog) 100 Unit/Ml Vial SQ 6 unit ACHS [facility] Administration Protocol Insulin Detemir 20 unit 03/30/20 08:30 Insulin Detemir (Levemir) 100 Unit/Ml Syr SQ DAILY@0700 [facility] Lisinopril 2.5 mg 03/30/20 09:00 03/30/20 07:54 Lisinopril 2.5 Mg Tab PO 2.5 mg DAILY [facility] Administration Nitroglycerin 0.4 mg 03/29/20 18:02 Nitroglycerin Sl Tabs 0.4 Mg Tab SUBLINGUAL Q5M PRN Chest Pain Pregabalin 75 mg 03/29/20 21:00 03/30/20 07:40 Pregabalin 75 Mg Cap PO 75 mg BID [facility] Administration Intake and Output 03/29/20 03/30/20 03/30/20 22:59 06:59 14:59 Intake Total 72.145 75.254 0 Output Total 0 Balance 72.145 75.254 0 Intake: Intake, IV Titration 72.145 75.254 Amount Heparin Sod,Pork in 0.45% 72.145 75.254 NaCl 25,000 unit In 0.45 % NaCl 1 250ml.bag @ 11. 02 UNITS/KG/HR 9.997 mls/ hr IV .Q24H [facility] Rx#: [id number] Blood Product 0 Output: Urine 0 Other: Voiding Method Toilet Toilet Toilet # Voids 1 0 Weight 90.718 kg 03/30/20 02:44 03/30/20 02:44 EKG Interpretations (text) EKG shows a normal sinus rhythm with ST-T wave changes noted in the inferior lateral leads Assessment and Plan Plan: assessment and plan #1 atypical chest pain, troponins negative 3. EKG shows normal sinus rhythm with inferior lateral ST-T wave changes #2 diabetes #3 hypertension #4 hyperlipidemia #5 coronary artery disease with prior RCA and LAD stenting #6 nicotine dependence #7 history of noncompliance plan We will discontinue the IV heparin, add Lipitor 80 mg daily to the patient's medication regime, obtain an echocardiogram with Doppler study as well as a stress echocardiographic study today. Discontinue the Nitropaste. Further recommendations will be based on these findings and patient's clinical course. DNP note has been reviewed, I agree with a documented findings and plan of care. Patient was seen and examined.
[2020-03-30] MEDS ORDERED: METOPROLOL TARTRATE 5 MG/5 ML VIAL IVP ONE (09:58)
--- NOTE | 2020-03-30 10:08 | ECHOF ---
Referral Reason:chest pain MEASUREMENTS -------- HEIGHT: 167.6 cm WEIGHT: 90.7 kg BP: 110/81 IVSd: 1.3 cm (0.6 - 1.1) LVIDd: 3.4 cm (3.9 - 5.3) LVPWd: 1.7 cm (0.6 - 1.1) IVSs: 1.7 cm LVIDs: 2.1 cm LVPWs: 2.3 cm LAESV Index (A-L): 16.57 ml/m Ao Diam: 3.3 cm (2.0 - 3.7) AV Cusp: 2.2 cm (1.5 - 2.6) MV EXCURSION: 15.279 mm (> 18.000) MV EF SLOPE: 42 mm/s (70 - 150) EPSS: 0.4 cm MV E Tano: 0.81 m/s MV DecT: 137 ms MV A Tano: 0.56 m/s MV E/A Ratio: 1.44 RAP: 5.00 mmHg RVSP: 13.21 mmHg FINDINGS -------- This was a technically adequate study. The left ventricular size is normal. There is mild concentric left ventricular hypertrophy. Overa ll left ventricular systolic function is normal with, an EF between 55 - 60 %. The diastolic fillin g pattern is normal for the age of the patient 14.17. The right ventricle is normal in size. Normal LA size by volume 22+/-6 ml/m2. The right atrial size is normal. Interatrial and interventricular septum intact. The aortic valve is trileaflet and appears structurally normal. There is no evidence of aortic regu rgitation. There is no evidence of aortic stenosis. No mitral regurgitation. Mild tricuspid regurgitation present. There is no evidence of pulmonary hypertension. The right v entricular systolic pressure, as measured by Doppler, is 13.21mmHg. There is no pulmonic regurgitation present. The aortic root size is normal. IVC Not well visulized. There is no pericardial effusion. CONCLUSIONS -------- 1. The left ventricular size is normal. 2. There is mild concentric left ventricular hypertrophy. 3. Overall left ventricular systolic function is normal with, an EF between 55 - 60 %. 4. The diastolic filling pattern is normal for the age of the patient 14.17 5. Mild tricuspid regurgitation present. [employer] OUTSEAMER: Anjali Jackson RDCS
[2020-03-30] MEDS ORDERED: ASPIRIN 325 MG TAB PO STA (10:39)
[2020-03-30] MEDS ORDERED: ATORVASTATIN 80 MG TAB PO STA (10:39)
[2020-03-30] MEDS ORDERED: ALPRAZolam 0.25 MG TAB PO PRN (10:39)
[2020-03-30] MEDS ORDERED: ALPRAZolam 0.5 MG TAB PO PRN (10:39)
[2020-03-30] MEDS ORDERED: SODIUM CHLORIDE 0.9% 1,000 ML in EMPTY BAG 1 BAG IV ONE (10:39)
[2020-03-30] MEDS ORDERED: NITROGLYCERIN SL TABS 0.4 MG TAB SUBLINGUAL PRN (10:39)
[2020-03-30] MEDS: AZITHROMYCIN 500 MG TAB PO SCH (10:56)
[2020-03-30] MEDS: glipiZIDE 10 MG TAB PO SCH ×2 (12:14→17:02)
[2020-03-30 12:15] LABS: Glucose,Whole Blood 302 mg/dL (75-99)
--- NOTE | 2020-03-30 12:16 | ECHOS ---
STRESS ECHOCARDIOGRAM INDICATIONS: Chest pain. BASELINE HEART RATE: 93 BASELINE BLOOD PRESSURE: 95/57 MAXIMUM HEART RATE: 134 MAXIMUM BLOOD PRESSURE: 144/58 85% MPHR: 146 100% MPHR: 172 MAXIMUM STAGE REACHED: 3 TOTAL EXERCISE TIME: 9:53 CLINICAL INFORMATION: STRESS DATA: Heart rate 93, pressure is 95/57 mmHg. Baseline EKG showed sinus mechanism. Dobutamine infusion at a dose of 10 mcg/kg per minute was initiated and increased to 30 mcg/kg per minute per protocol. Max heart rate was 134, which is about 80% of maximum predicted heart rate and maximum blood pressure was 122/52 minute 144/58 mmHg. Clinically, the patient developed chest discomfort in response to dobutamine. The EKG showed about 2 mm horizontal/downsloping ST-segment changes concerning for ischemia. ECHOCARDIOGRAM IMAGES: On echocardiogram images from parasternal long axis view, parasternal short axis view, apical 4 chamber and apical 2 chambers were obtained as the baseline images, at low dose dobutamine infusion, at the peak of the heart rate as well as on recovery. The echocardiogram images showed hypokinesia/dyskinesia involving the basal inferior wall of the left ventricle, quite concerning for ischemia. CONCLUSION: 1. Abnormal dobutamine stress echocardiogram. 2. Chest discomfort in response to dobutamine. 3. Ischemic ST changes in response to dobutamine. 4. Abnormal wall motion abnormalities in response to dobutamine involving the inferobasal wall of the left ventricle concerning for severe underlying coronary artery disease. MMODL / IJN: [id number] /
[2020-03-30] MEDS: INSULIN DETEMIR (LEVEMIR) 100 UNIT/ML SYR SQ SCH (13:53)
[2020-03-30 15:34] VITALS: BMI 32.3
[2020-03-30 16:59] LABS: Glucose,Whole Blood 360 mg/dL (75-99)
[2020-03-30 19:51] LABS: Glucose,Whole Blood 352 mg/dL (75-99)
[2020-03-31 06:51] LABS: Glucose,Whole Blood 317 mg/dL (75-99)
[2020-03-31] MEDS: PREGABALIN 75 MG CAP PO SCH (07:08)
[2020-03-31] MEDS: AZITHROMYCIN 500 MG TAB PO SCH (07:08)
[2020-03-31] MEDS: HYDROcodone/APAP 5-325MG 1 EACH TAB PO PRN ×3 (07:08→18:56)
[2020-03-31] MEDS: CLOPIDOGREL 75 MG TAB PO SCH (07:08)
[2020-03-31] MEDS: INSULIN ASPART (NovoLOG) 100 UNIT/ML VIAL SQ SCH ×3 (07:15→16:50)
--- NOTE | 2020-03-31 07:22 | P.PN ---
Subjective Progress Note Date: 03/31/20 Principal diagnosis: Chest discomfort This is a pleasant 50-year-old gentleman with history of coronary artery disease and prior stenting of the RCA as well as diabetes and hypertension and severe dyslipidemia who was admitted to the hospital with a chest discomfort and ruled out for acute coronary event. The EKG showed sinus rhythm with nonspecific changes in the. The cardiac enzymes came in to be unremarkable. Subsequently the patient underwent dobutamine stress echocardiogram which came in to be unremarkable was chest pain as well as EKG changes as well as abnormal wall motion abnormalities on the echo in response to dobutamine. The patient was seen today 03/31/2020. He is chest pain-free but he's experiencing upper back pain from laying in bed. His vitals are stable. He underwent a fasting the bid for 5 yesterday which showed elevated triglycerides. Currently he is on atorvastatin 80 mg by mouth daily. I'm going to decrease the dose to 40 mg by mouth daily and add high dose of TriCor at 160 mg by mouth daily. He is going to undergo a heart catheterization later on today. The echocardiogram revealed normal left ventricular systolic function with no evidence of severe valvular abnormalities. We'll follow-up with the patient after the heart catheterization. Objective - Vital Signs Vital signs: Vital Signs Temp 98.1 F 03/31/20 06:46 Pulse 86 03/31/20 06:46 Resp 18 03/31/20 06:46 BP 125/83 03/31/20 06:46 Pulse Ox 96 03/31/20 06:46 Intake & Output 03/30/20 03/31/20 03/31/20 18:59 06:59 18:59 Intake Total 600 Output Total 0 Balance 600 Weight 90.72 kg Intake: Oral 600 Blood Product 0 Output: Urine 0 Other: Voiding Method Toilet Toilet # Voids 3 1 - Constitutional General appearance: Present: no acute distress - Respiratory Respiratory: bilateral: CTA - Cardiovascular Rhythm: regular Heart sounds: normal: S1, S2 - Labs CBC & Chem 7: 03/30/20 02:44 03/30/20 02:44 Labs: Abnormal Lab Results - Last 24 Hours (Table) 03/30/20 03/30/20 03/30/20 Range/Units 07:12 12:13 16:58 APTT 54.8 H (22.0-30.0) sec POC Glucose (mg/dL) 302 H 360 H (75-99) mg/dL 03/30/20 03/31/20 Range/Units 19:49 06:50 APTT (22.0-30.0) sec POC Glucose (mg/dL) 352 H 317 H (75-99) mg/dL Assessment and Plan Assessment: Assessment #1 chest discomfort #2 abnormal stress test #3 coronary artery disease and prior stenting #4 multiple comorbid conditions Plan #1 the patient is going to undergo a heart catheterization #2 start the patient on TriCor #3 follow-up after the catheterization
[2020-03-31 07:46] LABS: Basophils # (A) 0.1 k/uL (0-0.2); Basophils % (A) 1 %; Eosinophils # (A) 0.1 k/uL (0-0.7); Eosinophils % (A) 2 %; HGB 16.5 gm/dL (13.0-17.5); Lymphocytes % (A) 29 %; MCH 31.4 pg (25.0-35.0); MCHC 34.4 g/dL (31.0-37.0); MCV 91.4 fL (80.0-100.0); Mean Platelet Volume 6.5; Monocytes # (A) 0.3 k/uL (0-1.0); Monocytes % (A) 5 %; Neutrophils # (A) 4.3 k/uL (1.3-7.7); Neutrophils % (A) 60 %; Platelet Count 231 k/uL (150-450); RBC 5.25 m/uL (4.30-5.90); RDW 13.8 % (11.5-15.5); WBC 7.1 k/uL (3.8-10.6)
[2020-03-31 07:57] VITALS: TEMP 97.8
[2020-03-31] MEDS: ASPIRIN 81 MG PO SCH (07:59)
[2020-03-31] MEDS: INSULIN DETEMIR (LEVEMIR) 100 UNIT/ML SYR SQ SCH (08:00)
[2020-03-31 08:02] LABS: African American GFR (CKD) >90 (>60 ml/min/1.73 sqM); Anion Gap 8 mmol/L; Blood Urea Nitrogen 14 mg/dL (9-20); Calcium 8.8 mg/dL (8.4-10.2); Carbon Dioxide 20 mmol/L (22-30); Chloride 103 mmol/L (98-107); Glucose 314 mg/dL (74-99); Non-African American GFR(CKD) >90 (>60 ml/min/1.73 sqM); Potassium 4.4 mmol/L (3.5-5.1); Sodium 131 mmol/L (137-145)
[2020-03-31] MEDS ORDERED: INSULIN DETEMIR (LEVEMIR) 100 UNIT/ML SYR SQ ONE (08:30)
--- NOTE | 2020-03-31 08:32 | P.PN ---
Subjective This is a pleasant 50 years old male with past medical history of coronary artery disease status post prior RCA and LAD stenting last one was on 03/2019. Presents with chest pain for 3-4 days. Patient is diabetic with hyperglycemia, his hemoglobin A1c is quite elevated at 15%, patient informed and states that he used to take 60 units of Levemir however about 6 months ago his PCP Dr. Good take them off Levemir insulin and put him on metformin at that time and currently he is taking only glipizide which is compliant with. We saw the patient on Levemir 20 and 40 units daily and monitor his glucose. Patient instructed to check his sugar 4 times a day before meals and at bedtime. Also patient with common and chest x-ray showing possible bronchitis. No fever or leukocytosis D-dimer has been negative less than 0.17. Sodium is 125 and 127 howeverOn discharge, the patient has been prescribed corrected for hyperglycemia it will be 132 Patient has an unremarkable stress echo today and planetarium technician decided the patient to go for cardiac cath tomorrow Review of systems CONSTITUTIONAL: No fever, no malaise, no fatigue. HEENT: No recent visual problems or hearing problems. Denied any sore throat. CARDIOVASCULAR: No orthopnea, PND, no palpitations, no syncope. PULMONARY: No shortness of breath, no hemoptysis. GASTROINTESTINAL: No diarrhea, no nausea, no vomiting, no abdominal pain. Normoactive bowel sounds. NEUROLOGICAL: No headaches, no weakness, no numbness. Active Medications Generic Name Dose Route Start Last Admin Trade Name Freq PRN Reason Stop Dose Admin Hydrocodone Bitart/Acetaminophen 1 each 03/29/20 18:01 03/31/20 07:08 Hydrocodone/Apap 5-325mg 1 Each Tab PO 1 each Q6HR PRN Administration Pain Albuterol Sulfate 2.5 mg 03/29/20 18:02 03/30/20 07:29 Albuterol Nebulized 2.5 Mg/3 Ml INHALATION 2.5 mg RT-Q6H PRN Administration Shortness Of Breath Alprazolam 0.25 mg 03/30/20 10:39 Alprazolam 0.25 Mg Tab PO Q6HR PRN Mild Anxiety Alprazolam 0.5 mg 03/30/20 10:39 Alprazolam 0.5 Mg Tab PO Q6HR PRN Moderate Anxiety Aspirin 81 mg 03/30/20 09:00 03/31/20 07:59 Aspirin 81 Mg PO 81 mg DAILY MANDY Administration Atorvastatin Calcium 40 mg 03/31/20 09:00 03/31/20 07:59 Atorvastatin 40 Mg Tab PO 40 mg DAILY MANDY Administration Azithromycin 500 mg 03/30/20 09:00 03/31/20 07:08 Azithromycin 500 Mg Tab PO 500 mg DAILY MANDY Administration Clopidogrel Bisulfate 75 mg 03/30/20 09:00 03/31/20 07:08 Clopidogrel 75 Mg Tab PO 75 mg DAILY MANDY Administration Fenofibrate 160 mg 03/31/20 09:00 03/31/20 08:04 Fenofibrate 160 Mg Tab PO 160 mg DAILY MANDY Administration Glipizide 10 mg 03/29/20 21:00 03/30/20 17:02 Glipizide 10 Mg Tab PO 10 mg AC-BID MANDY Administration Hydromorphone HCl 0.5 mg 03/29/20 18:02 03/29/20 21:49 Hydromorphone 0.5 Mg/0.5 Ml Syringe IVP 0.5 mg Q6HR PRN Administration Pain Insulin Aspart 0 unit 03/29/20 17:30 03/31/20 07:15 Insulin Aspart (Novolog) 100 Unit/Ml Vial SQ 5 unit ACHS [facility] Administration Protocol Insulin Detemir 40 unit 04/01/20 07:00 Insulin Detemir (Levemir) 100 Unit/Ml Syr SQ DAILY@0700 [facility] Lisinopril 2.5 mg 03/30/20 09:00 03/31/20 07:08 Lisinopril 2.5 Mg Tab PO 2.5 mg DAILY [facility] Administration Nitroglycerin 0.4 mg 03/29/20 18:02 Nitroglycerin Sl Tabs 0.4 Mg Tab SUBLINGUAL Q5M PRN Chest Pain Nitroglycerin 0.4 mg 03/30/20 10:39 Nitroglycerin Sl Tabs 0.4 Mg Tab SUBLINGUAL Q5M PRN Chest Pain Pregabalin 75 mg 03/29/20 21:00 03/31/20 07:08 Pregabalin 75 Mg Cap PO 75 mg BID MANDY Administration Objective - Vital Signs Vital signs: Vital Signs Temp 97.1 F L 03/30/20 07:37 Pulse 88 03/30/20 08:13 Resp 16 10/06/20 08:13 BP 118/72 03/30/20 07:37 Pulse Ox 96 03/30/20 07:37 Intake & Output 03/29/20 03/30/20 03/30/20 18:59 06:59 18:59 Intake Total 147.399 0 Output Total 0 Balance 147.399 0 Weight 90.718 kg 90.72 kg Intake: Intake, IV Titration 147.399 Amount Heparin Sod,Pork in 0.45% 147.399 NaCl 25,000 unit In 0.45 % NaCl 1 250ml.bag @ 11. 02 UNITS/KG/HR 9.997 mls/ hr IV .Q24H MANDY Rx#: [id number] Blood Product 0 Output: Urine 0 Other: Voiding Method Toilet Toilet # Voids 0 - Exam -GENERAL: The patient is alert and oriented x3, not in any acute distress. Well developed, well nourished. Obese. No conjunctival pallor. Normocephalic, atraumatic. No pharyngeal erythema. No thyromegaly. CARDIOVASCULAR: S1 and S2 present. No murmurs, rubs, or gallops. PULMONARY: Chest is clear to auscultation, no wheezing or crackles. ABDOMEN: Soft, nontender, nondistended, normoactive bowel sounds. No palpable organomegaly. MUSCULOSKELETAL: No joint swelling or deformity. EXTREMITIES: No cyanosis, clubbing, or pedal edema. NEUROLOGICAL: Gross neurological examination did not reveal any focal deficits. SKIN: No rashes. no petechiae. - Labs CBC & Chem 7: 03/31/20 07:16 03/31/20 07:16 Labs: Abnormal Lab Results - Last 24 Hours (Table) 03/29/20 03/29/20 03/29/20 Range/Units 14:25 14:30 17:24 APTT (22.0-30.0) sec Sodium 125 L (137-145) mmol/L Chloride 94 L (98-107) mmol/L Carbon Dioxide 19 L (22-30) mmol/L Creatinine 0.47 L (0.66-1.25) mg/dL Glucose 438 H (74-99) mg/dL POC Glucose (mg/dL) 466 H 390 H (75-99) mg/dL Hemoglobin A1c (4.0-6.0) % Lactate Dehydrogenase (313-618) U/L Triglycerides (<150) mg/dL Cholesterol (<200) mg/dL HDL Cholesterol (40-60) mg/dL Urine Glucose (UA) (Negative) Urine Ketones (Negative) 03/29/20 03/29/20 03/29/20 Range/Units 20:43 20:43 22:44 APTT (22.0-30.0) sec Sodium (137-145) mmol/L Chloride (98-107) mmol/L Carbon Dioxide (22-30) mmol/L Creatinine (0.66-1.25) mg/dL Glucose (74-99) mg/dL POC Glucose (mg/dL) 345 H (75-99) mg/dL Hemoglobin A1c 15.0 H (4.0-6.0) % Lactate Dehydrogenase 286 L (313-618) U/L Triglycerides (<150) mg/dL Cholesterol (<200) mg/dL HDL Cholesterol (40-60) mg/dL Urine Glucose (UA) (Negative) Urine Ketones (Negative) 03/29/20 03/30/20 03/30/20 Range/Units 23:00 02:44 02:44 APTT 33.8 H (22.0-30.0) sec Sodium 127 L (137-145) mmol/L Chloride 96 L (98-107) mmol/L Carbon Dioxide (22-30) mmol/L Creatinine 0.52 L (0.66-1.25) mg/dL Glucose 333 H (74-99) mg/dL POC Glucose (mg/dL) (75-99) mg/dL Hemoglobin A1c (4.0-6.0) % Lactate Dehydrogenase (313-618) U/L Triglycerides 4307 H (<150) mg/dL Cholesterol 303 H (<200) mg/dL HDL Cholesterol 21 L (40-60) mg/dL Urine Glucose (UA) 4+ H (Negative) Urine Ketones 1+ H (Negative) 03/30/20 03/30/20 03/30/20 Range/Units 07:02 07:12 12:13 APTT 54.8 H (22.0-30.0) sec Sodium (137-145) mmol/L Chloride (98-107) mmol/L Carbon Dioxide (22-30) mmol/L Creatinine (0.66-1.25) mg/dL Glucose (74-99) mg/dL POC Glucose (mg/dL) 330 H 302 H (75-99) mg/dL Hemoglobin A1c (4.0-6.0) % Lactate Dehydrogenase (313-618) U/L Triglycerides (<150) mg/dL Cholesterol (<200) mg/dL HDL Cholesterol (40-60) mg/dL Urine Glucose (UA) (Negative) Urine Ketones (Negative) Assessment and Plan Assessment: -Chest pain with unremarkable stress test going for cardiac cath tomorrow. Cardiology ON the case. Continue with aspirin and Plavix -Possible bronchitis with abnormal chest x-ray, and Coban. Continue with Zithromax -Diabetes mellitus with hyperglycemia, restart Levemir 20 units and will be increased to 40 units tomorrow. PATIENT WAS AT 60 UNITS AT HOME -OBESITY, CONTINUE WITH HEART HEALTHY DIET -Hyperlipidemia -Hypertension -History of coronary artery disease -Nicotine dependence -DVT prophylaxis, subcutaneous heparin -GI prophylaxis: Pepcid
[2020-03-31] MEDS ORDERED: ATORVASTATIN 40 MG TAB PO SCH (09:00)
[2020-03-31] MEDS ORDERED: FENOFIBRATE 160 MG TAB PO SCH (09:00)
[2020-03-31] MEDS ORDERED: ATORVASTATIN 80 MG TAB PO SCH (09:00)
[2020-03-31 11:07] LABS: Glucose,Whole Blood 273 mg/dL (75-99)
[2020-03-31] MEDS ORDERED: IV FLUID CONTINUATION 1,000 ML IV ONE (13:12)
[2020-03-31] MEDS ORDERED: VERAPAMIL 2.5 MG/ML 2 ML AMP ONE (13:17)
[2020-03-31] MEDS ORDERED: LIDOCAINE 1% INJ 10MG/ML (20 ML MDV) ONE (13:17)
[2020-03-31] MEDS ORDERED: HEPARIN SODIUM 1,000 UN/ML (10ML VL) ONE (13:17)
[2020-03-31] MEDS ORDERED: fentaNYL (PF) 50 MCG/ML 2 ML AMP ONE (13:17)
[2020-03-31] MEDS ORDERED: LIDOCAINE 1% INJ 10MG/ML (20 ML MDV) SQ ONE (13:18)
[2020-03-31] MEDS ORDERED: MIDAZOLAM 2 MG/2 ML VIAL IV ONE (13:20)
[2020-03-31] MEDS ORDERED: fentaNYL (PF) 50 MCG/ML 2 ML AMP IV ONE (13:20)
[2020-03-31] MEDS ORDERED: HEPARIN SODIUM 1,000 UN/ML (10ML VL) IV ONE (13:28)
[2020-03-31] MEDS ORDERED: IOPAMIDOL-370 100ML BTL INJ ONE (13:30)
[2020-03-31] MEDS ORDERED: RX INFO: IV CONTRAST WAS GIVEN 1 EACH MISC MISCELLANE PRN (13:43)
[2020-03-31] MEDS ORDERED: SODIUM CHLORIDE 0.9% 1,000 ML IV SCH (13:45)
[2020-03-31 14:27] VITALS: RESP 20
[2020-03-31] MEDS ORDERED: NICOTINE 21MG/24HR PATCH TRANSDERM SCH (14:30)
[2020-03-31] MEDS: glipiZIDE 10 MG TAB PO SCH ×2 (14:33→16:50)
[2020-03-31 16:43] LABS: Glucose,Whole Blood 270 mg/dL (75-99)
--- NOTE | 2020-03-31 16:51 | P.DS ---
Providers Date of admission: 03/29/20 15:20 Attending physician: Gracy Zavala Consults: 03/29/20 15:20 Consult Physician Urgent Consulting Provider: [facility] Consult Reason/Comments: Unstable angina Do you want consulting provider notified?: Yes Primary care physician: Taylor Rodríguez [place] [facility] Course: 75 years old -[place] male with past medical history of CVA/TIA, COPD, hypertension, osteoarthritis, hypothyroidism. Presents because of chest pain. However this chest pain is improving now and patient rated as 0/10 currently. No dyspnea or coughing or fever. Vitals and labs looks stable He underwent stress test today showing area acute ischemia of inferior left ventricle wall, cardiology team are aware and plan for cardiac cath tomorrow. 03/31/2020 patient had cardiac catheterization which did not show any significant occlusive Disease that will require stenting. Patient will be discharged today patient was diagnosed with bronchitis patient is a smoker with willing to quit smoking at this time and patient will be discharged in couple more days of azithromycin. Patient blood sugars are highly elevated. Patient is supposed to take long- acting insulin 60 units but his blood sugars were low because of which he stopped taking long-acting insulin patient will be started on 50 units patient that sugars are still uncontrolled on 40 units of long-acting insulin. Patient will need to closely follow with endocrinology and PCP patient will need to check his blood sugars at home instructions were provided accordingly. Patient will be discharged PHYSICAL EXAMINATION: GENERAL: The patient is alert and oriented x3, not in any acute distress. Well developed, well nourished. HEENT: Pupils are round and equally reacting to light. EOMI. No scleral icterus. No conjunctival pallor. Normocephalic, atraumatic. No pharyngeal erythema. No thyromegaly. CARDIOVASCULAR: S1 and S2 present. No murmurs, rubs, or gallops. PULMONARY: Chest is clear to auscultation, no wheezing or crackles. ABDOMEN: Soft, nontender, nondistended, normoactive bowel sounds. No palpable organomegaly. MUSCULOSKELETAL: No joint swelling or deformity. EXTREMITIES: No cyanosis, clubbing, or pedal edema. NEUROLOGICAL: Gross neurological examination did not reveal any focal deficits. SKIN: No rashes. -chest pain and abnormal stress test underwent cardiac catheterization which did not show any significant atherosclerotic occlusive disease that will require stenting although he does have coronary artery disease and patient - hypertension -hypothyroidism -COPD -bronchitis - type 2 diabetes mellitus uncontrolled elevated blood sugars Plan - Discharge Summary Discharge Rx Participant: No New Discharge Prescriptions: New Insulin Glargine [Lantus] 50 unit SQ DAILY #2 vial Azithromycin [Zithromax] 500 mg PO DAILY #2 tab Continue Pregabalin [Lyrica] 75 mg PO BID Nitroglycerin Sl Tabs [Nitrostat] 0.4 mg SUBLINGUAL Q5M PRN #30 tab PRN Reason: Chest Pain lisinopriL [Zestril] 2.5 mg PO DAILY 30 Days #30 tab Aspirin 81 mg PO DAILY 30 Days #30 chew glipiZIDE [Glucotrol] 10 mg PO BID 30 Days #60 tab Clopidogrel [Plavix] 75 mg PO DAILY #30 tablet Albuterol Sulfate [Ventolin HFA] 2 puff INHALATION RT-Q6H PRN PRN Reason: Shortness Of Breath Discharge Medication List Pregabalin [Lyrica] 75 mg PO BID 03/31/19 [History] Aspirin 81 mg PO DAILY 30 Days #30 chew 04/01/19 [Rx] Clopidogrel [Plavix] 75 mg PO DAILY #30 tablet 04/01/19 [Rx] Nitroglycerin Sl Tabs [Nitrostat] 0.4 mg SUBLINGUAL Q5M PRN #30 tab 04/01/19 [Rx] glipiZIDE [Glucotrol] 10 mg PO BID 30 Days #60 tab 04/01/19 [Rx] lisinopriL [Zestril] 2.5 mg PO DAILY 30 Days #30 tab 04/01/19 [Rx] Albuterol Sulfate [Ventolin HFA] 2 puff INHALATION RT-Q6H PRN 03/29/20 [History] Azithromycin [Zithromax] 500 mg PO DAILY #2 tab 03/31/20 [Rx] Insulin Glargine [Lantus] 50 unit SQ DAILY #2 vial 03/31/20 [Rx] Follow up Appointment(s)/Referral(s): Zulema Camarillo MD [STAFF PHYSICIAN] - 1 Week (Office will call with date and time for followup appointment) Marcos Vazquez MD [Primary Care Provider] - 04/06/20 1:50 pm Patient Instructions/Handouts: *Surgery [facility] - After Heart Catheterization - Compliance Administrator Instructions, After Radial Heart Catheterization (GEN) Discharge Disposition: HOME SELF-CARE
--- NOTE | 2020-03-31 17:06 | CC ---
CARDIAC CATHETERIZATION REPORT Mr. Mathews is a 50-year-old male with a known history of chronic obstructive lung disease, chronic tobacco use, prior history of noncompliance that presented to the hospital with symptoms of chest discomfort. He had no evidence of acute myocardial infarction, but he had a questionable stress test. In view of that, recommendation made regarding cardiac catheterization. The procedures, risks, and complication were discussed with the patient who is in full understanding and agreement. PROCEDURE: Patient was brought to the forestry farm laborer in a fasting semi-sedated state after receiving fentanyl and Benadryl and achieving moderate conscious sedated state using Xylocaine anesthesia and Seldinger technique, a 6-[place] sheath was introduced in the right radial artery. Selective right and left coronary angiography performed using 5-[place]i 3.5 bend right and left Zachary catheter, multiple views of the coronary artery including hemiaxial views were obtained. The 5-[place]i right Zachary was used to cross the aortic valve and left ventricular end-diastolic pressure was calculated. Following that catheter and sheath were removed. Hemostasis was obtained with deployment of a TR band. There was no immediate complication. Patient is returned to his room in stable condition. Of note, the patient received 5000 units of intravenous heparin as well as intra-arterial verapamil. FINDINGS: LEFT MAIN: This is a short sized vessel, bifurcating immediately into left main and to the left anterior descending artery and left circumflex, left main coronary artery has no evidence of high-grade stenosis. LEFT ANTERIOR DESCENDING ARTERY: This is a large-sized vessel, tapers in the distal third giving rise to a large diagonal branch. Left anterior descending artery at the ostium has a 30% to 40% plaque. The stented segment beyond that is open without any evidence of any stent restenosis. There is mild plaque distal to the stent. LEFT CIRCUMFLEX: This is a large nondominant vessel, giving rise to 2 obtuse marginal branches. The left circumflex as well as branches have no evidence of obstructive coronary artery disease. RIGHT CORONARY ARTERY: This is a moderately size vessel dominant, giving rise distally PDA and posterolateral segment and branches. The mid segment of the right coronary artery has an eccentric area of stenosis of 30%-40%. The rest of the vessel has no high-grade stenosis. The stented segment is patent. LEFT VENTRICULOGRAM: Left ventriculogram is not performed. HEMODYNAMICS: There was no gradient across the aortic valve. The left ventricular end- diastolic pressure was 12-14 mmHg. CONCLUSION: 1. Patent stent to the LAD and to the right coronary artery. 2. Mild to moderate disease in the ostium of the LAD and the mid to right coronary artery. RECOMMENDATION: In view of finding anatomy, I recommend continue medical therapy with aggressive risk modifications being initiated. Those findings and recommendation were discussed with the patient and his family and they are in full understanding and agreement. Duration of sedation is 13 minutes. MMODL / IJN: [id number] /
[2020-03-31 17:30] VITALS: BP 115/79; PULSE 92
[2020-04-01] MEDS ORDERED: INSULIN DETEMIR (LEVEMIR) 100 UNIT/ML SYR SQ SCH (07:00)
== END 2020-03-31 19:09 | disposition home or self-care (01) ==
LOC: EC 13:44 → 3NCARDOBS 15:20
PROVIDERS: ADMIT Internal Medicine; ATTEND Internal Medicine
DX: R07.89 Other chest pain (principal); R94.39 Abnormal result of other cardiovascular function study; I10 Essential (primary) hypertension; E03.9 Hypothyroidism, unspecified; J44.9 Chronic obstructive pulmonary disease, unspecified; Z20.828 Contact with and (suspected) exposure to other viral communicable diseases; Z95.5 Presence of coronary angioplasty implant and graft; E11.65 Type 2 diabetes mellitus with hyperglycemia; M19.90 Unspecified osteoarthritis, unspecified site; E87.1 Hypo-osmolality and hyponatremia; G89.29 Other chronic pain; M54.9 Dorsalgia, unspecified; E78.00 Pure hypercholesterolemia, unspecified; R51.9 Headache, unspecified; F17.200 Nicotine dependence, unspecified, uncomplicated; I25.10 Atherosclerotic heart disease of native coronary artery without angina pectoris; E78.5 Hyperlipidemia, unspecified; M54.6 Pain in thoracic spine; E78.1 Pure hyperglyceridemia; Z91.19 Patient's noncompliance with other medical treatment and regimen; E66.9 Obesity, unspecified; Z68.32 Body mass index [BMI] 32.0-32.9, adult; I25.2 Old myocardial infarction; Z79.899 Other long term (current) drug therapy; Z79.82 Long term (current) use of aspirin; Z79.02 Long term (current) use of antithrombotics/antiplatelets; Z79.4 Long term (current) use of insulin; Z86.73 Personal history of transient ischemic attack (TIA), and cerebral infarction without residual deficits; Z82.49 Family history of ischemic heart disease and other diseases of the circulatory system; Z83.3 Family history of diabetes mellitus; Z81.8 Family history of other mental and behavioral disorders
CPT/HCPCS: 96366 ×2; 96375; 96376 ×3; 96365; 99291; 36415; 94640; 93005; 93306; 93351; 93458; 85379; 80061; 80053; 80048 ×2; 85652; 82375 ×2; 83615; 83735; 84484; 85025 ×3; 85610; 85730 ×2; 86140; 81003; 87502; 83036; 71046; 90686; G0378 ×3; C1769; C1894; U0003; G0008; S4990 ×2; J2250; J1250; J1644 ×4; J2001; J3010; J1170; Q9967

== ENCOUNTER 2020-04-12 15:21 | Emergency (ER) | payer OTHER ==
[2020-04-12] MEDS ORDERED: LIDOCAINE 5% PATCH TOPICAL STA (16:00)
--- NOTE | 2020-04-12 16:31 | XR ---
EXAMINATION TYPE: XR ribs LT w pa chest x-ray DATE OF EXAM: 04/12/2020 COMPARISON: Chest radiograph 03/29/2020 CLINICAL HISTORY: Chest wall pain, left ribs. Lower left-sided flank and rib pain. Four views of the ribs and frontal view of the chest obtained. No evidence for displaced rib fracture or secondary sign of rib fracture. Visualized lungs demonstrate subsegmental atelectasis of the lef t midlung, and are otherwise are clear. No evidence for pneumothorax. Cardiomediastinal silhouette n ormal. IMPRESSION: No displaced rib fractures seen. No acute cardiopulmonary process.
--- NOTE | 2020-04-12 17:19 | ED ---
General Adult HPI - General Chief complaint: Shortness of Breath Stated complaint: abd pain sob Time Seen by Provider: 04/12/20 15:41 Source: patient Mode of arrival: ambulatory Limitations: no limitations - History of Present Illness Initial comments: 50-year-old male patient presents to the emergency department today for evaluation of left-sided rib pain. He shouldn't states that he has had this pain for the last few weeks. States that he was admitted to the hospital and had a full cardiac evaluation including heart catheterization with normal re sults. Patient states that the pain has persisted. Follow-up with his surg rn today he was instructed to come here for x-rays of the ribs. She denies any trouble breathing with this. States the pain does worsen when he takes a deep breath, coughs, or twists side to side. States is tender to touch. He denies any hemoptysis. Denies any known rib injury. Denies history of similar symptoms. Patient denies any headache, neck pain, back pain, chest pain, shortness of breath, dizziness, weakness, abdominal pain, nausea, vomiting, or difficulties with bowel movements or urination. - Related Data Home Medications Medication Instructions Recorded Confirmed Pregabalin [Lyrica] 75 mg PO BID 03/31/19 03/29/20 Albuterol Sulfate [Ventolin HFA] 2 puff INHALATION RT-Q6H PRN 03/29/20 03/29/20 Previous Rx's Medication Instructions Recorded Aspirin 81 mg PO DAILY 30 Days #30 chew 04/01/19 Clopidogrel [Plavix] 75 mg PO DAILY #30 tablet 04/01/19 Nitroglycerin Sl Tabs [Nitrostat] 0.4 mg SUBLINGUAL Q5M PRN #30 tab 04/01/19 glipiZIDE [Glucotrol] 10 mg PO BID 30 Days #60 tab 04/01/19 lisinopriL [Zestril] 2.5 mg PO DAILY 30 Days #30 tab 04/01/19 Azithromycin [Zithromax] 500 mg PO DAILY #2 tab 03/31/20 Insulin Glargine [Lantus] 50 unit SQ DAILY #2 vial 03/31/20 Ibuprofen [Motrin] 600 mg PO Q8HR PRN #30 tab 04/12/20 Lidocaine 5% Patch [Lidoderm] 1 patch TOPICAL DAILY #30 patch 04/12/20 Allergies Allergy/AdvReac Type Severity Reaction Status Date / Time No Known Allergies Allergy Verified 04/12/20 15:34 Review of Systems ROS Statement: Those systems with pertinent positive or pertinent negative responses have been documented in the HPI. ROS Other: All systems not noted in ROS Statement are negative. Past Medical History Past Medical History: Coronary Artery Disease (CAD), Chest Pain / Angina, Diabetes Mellitus, Hyperlipidemia, Hypertension, Myocardial Infarction ([place]) Additional Past Medical History / Comment(s): [place] 03/2019, NIDDM type II, chronic low back pain, recent R knee injury. Last Myocardial Infarction Date:: 03/31/19 History of Any Multi-Drug Resistant Organisms: None Reported Past Surgical History: Heart Catheterization With Stent, Orthopedic Surgery Additional Past Surgical History / Comment(s): PCI with stents, R knee fracture with surgery/pins and paul. Past Anesthesia/Blood Transfusion Reactions: No Reported Reaction Date of Last Stent Placement:: 03/31/19 Past Psychological History: No Psychological Hx Reported Smoking Status: Current every day smoker - Past Family History Father Family Medical History: Coronary Artery Disease (CAD) Additional Family Medical History / Comment(s): Father had MIs-pt does not recall at what age father had his first [place] Mother Additional Family Medical History / Comment(s): Mother committed suicide. General Exam Limitations: no limitations General appearance: alert, in no apparent distress, other (This is a well- developed, well-nourished adult male patient in no acute distress. Vital signs upon presentation are temperature 97.2F, pulse 75, respirations 22, blood pressure 128/84, pulse ox 100% on room air.) Eye exam: Present: normal appearance, PERRL, EOMI. Absent: scleral icterus, conjunctival injection, periorbital swelling ENT exam: Present: normal exam, normal oropharynx, mucous membranes moist Respiratory exam: Present: normal lung sounds bilaterally, chest wall tenderness (Left lateral chest wall tenderness at the midaxillary line.). Absent: respiratory distress, wheezes, rales, rhonchi, stridor Cardiovascular Exam: Present: regular rate, normal rhythm, normal heart sounds. Absent: systolic murmur, diastolic murmur, rubs, gallop, clicks GI/Abdominal exam: Present: soft, normal bowel sounds. Absent: distended, tenderness, guarding, rebound, rigid Neurological exam: Present: alert, oriented X3, CN II-XII intact Psychiatric exam: Present: normal affect, normal mood Skin exam: Present: warm, dry, intact, normal color. Absent: rash Course Vital Signs 04/12/20 04/12/20 15:31 17:29 Temperature 97.2 F L 98 F Pulse Rate 75 68 Respiratory 22 16 Rate Blood Pressure 128/84 139/80 O2 Sat by Pulse 100 96 Oximetry Medical Decision Making - Medical Decision Making 50-year-old male patient presents to the emergency department today for evaluat ion of left-sided rib pain has been going on for the last few weeks. Physical examination did reveal tenderness at the left lateral chest at the midaxillary line and over the left posterior ribs. Patient had no abdominal tenderness. He is afebrile. No difficulty breathing. Has previously had full cardiac workup regarding this pain which was negative. Chest x-ray with left rib series was obtained and showed no acute abnormalities. Did discuss findings and results with the patient. He was given a Lidoderm patch. He'll be discharged with prescription for ibuprofen. He is instructed to follow-up his primary care physician for recheck in 1-2 days. Return parameters were discussed in detail. He verbalizes understanding and agrees with this plan. - Radiology Data Radiology results: report reviewed, image reviewed Chest x-ray with left rib series is obtained. Report was reviewed in its entirety. Impression by Dr. Castillo shows no displaced rib fracture seen. No acute cardiopulmonary process. Disposition Clinical Impression: Rib pain on left side Disposition: HOME SELF-CARE Condition: Good Instructions (If sedation given, give patient instructions): Muscle Strain (ED) Additional Instructions: Apply warm packs or ice to the left ribs. Take medications as directed. Follow-up through primary care physician for recheck in 1-2 days. Prescriptions: Lidocaine 5% Patch [Lidoderm] 1 patch TOPICAL DAILY #30 patch Ibuprofen [Motrin] 600 mg PO Q8HR PRN #30 tab PRN Reason: Pain Is patient prescribed a controlled substance at d/c from ED?: No Referrals: Marcos Vazquez MD [Primary Care Provider] - 1-2 days Time of Disposition: 17:19
[2020-04-12 17:30] VITALS: BP 139/80; PULSE 68; RESP 16; TEMP 98
== END 2020-04-12 17:29 | disposition home or self-care (01) ==
LOC: EC 15:21
DX: R07.81 Pleurodynia (principal); G89.29 Other chronic pain; M54.5 Low back pain; I25.2 Old myocardial infarction; F17.200 Nicotine dependence, unspecified, uncomplicated; Z79.899 Other long term (current) drug therapy; Z95.5 Presence of coronary angioplasty implant and graft
CPT/HCPCS: 99284

== ENCOUNTER 2021-11-24 15:34 | Emergency (ER) | payer OTHER ==
[2021-11-24 15:44] VITALS: BP 136/83; PULSE 98; RESP 18; TEMP 97.7
[2021-11-24] MEDS ORDERED: MORPHINE SULFATE 4 MG/ML SYRINGE IM STA (16:08)
--- NOTE | 2021-11-24 16:35 | XR ---
EXAMINATION TYPE: XR shoulder complete 3 views RT DATE OF EXAM: 11/24/2021 Comparison: None Clinical History: 51-year-old male pain after fall Findings: AC joint appears intact. Subacromial space is preserved. No acute fracture, subluxation, dislocation. Visualized right hemithorax is clear. Suspected minimal enthesopathy at the inferior glenoid tubercl e. Impression: No acute osseous abnormality seen.
--- NOTE | 2021-11-24 16:53 | ED ---
Upper Extremity HPI - General Chief Complaint: Extremity Injury, Upper Stated Complaint: IHS-R arm injury Time Seen by Provider: 11/24/21 15:46 Source: patient Mode of arrival: ambulatory Limitations: no limitations - History of Present Illness Initial Comments: Patient is a 51-year-old male who presents for evaluation of right shoulder pain. Patient states he was reaching for automobile part at work when he felt his shoulder pop. Patient reports pain in the front of his shoulder. States pain is worse with overhead movement of the shoulder. Denies numbness and tingling. Patient went to urgent care who placed him in a sling and sent him to the emergency department. - Related Data Home Medications Medication Instructions Recorded Confirmed Pregabalin [Lyrica] 75 mg PO BID 03/31/19 03/29/20 Albuterol Sulfate [Ventolin HFA] 2 puff INHALATION RT-Q6H PRN 03/29/20 03/29/20 Previous Rx's Medication Instructions Recorded Aspirin 81 mg PO DAILY 30 Days #30 chew 04/01/19 Clopidogrel [Plavix] 75 mg PO DAILY #30 tablet 04/01/19 Nitroglycerin Sl Tabs [Nitrostat] 0.4 mg SUBLINGUAL Q5M PRN #30 tab 04/01/19 glipiZIDE [Glucotrol] 10 mg PO BID 30 Days #60 tab 04/01/19 lisinopriL [Zestril] 2.5 mg PO DAILY 30 Days #30 tab 04/01/19 Azithromycin [Zithromax] 500 mg PO DAILY #2 tab 03/31/20 Insulin Glargine [Lantus] 50 unit SQ DAILY #2 vial 03/31/20 Ibuprofen [Motrin] 600 mg PO Q8HR PRN #30 tab 04/12/20 Lidocaine 5% Patch [Lidoderm] 1 patch TOPICAL DAILY #30 patch 04/12/20 Allergies Allergy/AdvReac Type Severity Reaction Status Date / Time No Known Allergies Allergy Verified 04/12/20 15:34 Review of Systems ROS Statement: Those systems with pertinent positive or pertinent negative responses have been documented in the HPI. ROS Other: All systems not noted in ROS Statement are negative. Past Medical History Past Medical History: Coronary Artery Disease (CAD), Chest Pain / Angina, Diabetes Mellitus, Hyperlipidemia, Hypertension, Myocardial Infarction ([place]) Additional Past Medical History / Comment(s): [place] 03/2019, NIDDM type II, chronic low back pain, recent R knee injury. Last Myocardial Infarction Date:: 03/31/19 History of Any Multi-Drug Resistant Organisms: None Reported Past Surgical History: Heart Catheterization With Stent, Orthopedic Surgery Additional Past Surgical History / Comment(s): PCI with stents, R knee fracture with surgery/pins and paul. Past Anesthesia/Blood Transfusion Reactions: No Reported Reaction Date of Last Stent Placement:: 03/31/19 Past Psychological History: No Psychological Hx Reported Smoking Status: Current every day smoker Past Alcohol Use History: None Reported Past Drug Use History: None Reported - Past Family History Father Family Medical History: Coronary Artery Disease (CAD) Additional Family Medical History / Comment(s): Father had MIs-pt does not recall at what age father had his first [place] Mother Additional Family Medical History / Comment(s): Mother committed suicide. General Exam Limitations: no limitations General appearance: alert, in no apparent distress Head exam: Present: atraumatic, normocephalic, normal inspection Respiratory exam: Present: normal lung sounds bilaterally. Absent: respiratory distress, wheezes, rales, rhonchi, stridor Cardiovascular Exam: Present: regular rate, normal rhythm, normal heart sounds. Absent: systolic murmur, diastolic murmur, rubs, gallop, clicks GI/Abdominal exam: Present: soft, normal bowel sounds. Absent: distended, tenderness, guarding, rebound, rigid Right Shoulder Exam: Present: normal inspection, full ROM (Pain with shoulder abduction, flexion, external rotation), tenderness (anteriorly ), tenderness over AC joint. Absent: swelling, abrasion, laceration, ecchymosis, deformity, crepitus, dislocation, erythema Upper Arm exam: Present: normal inspection, full ROM. Absent: tenderness, swelling, deformity Elbow exam: Present: normal inspection, full ROM. Absent: tenderness, swelling Neuro motor exam: Present: thumb opposition intact Vascular: Present: normal capillary refill. Absent: vascular compromise Neurological exam: Present: alert, oriented X3, CN II-XII intact Psychiatric exam: Present: normal affect, normal mood Skin exam: Present: warm, dry, intact, normal color. Absent: rash Course Vital Signs 11/24/21 15:42 Temperature 97.7 F Pulse Rate 98 Respiratory 18 Rate Blood Pressure 136/83 O2 Sat by Pulse 98 Oximetry Medical Decision Making - Medical Decision Making This is a 51-year-old male who presents with right shoulder pain. Thorough history and examination were performed. Patient reports pain over the anterior shoulder. There is tenderness with palpation including the AC joint. Pain worse with shoulder abduction, flexion, and external rotation. Right shoulder X-ray shows no acute osseous abnormality with suspected minimal enthesopathy at the inferior glenoid tubercle. Results discussed with patient. Patient possibly has injury to rotator cuff. Patient will be discharged with RICE instructions. Patient referred to claim benefit specialist and is instructed to return if symptoms do not improve in 1-2 weeks. Return parameters discussed. Patient verbalizes understanding and is agreeable to this plan. Dr. Iyer is my attending. Disposition Clinical Impression: Right shoulder injury Disposition: HOME SELF-CARE Condition: Good Instructions (If sedation given, give patient instructions): Rotator Cuff Injury (ED), Shoulder Pain (ED), Rotator Cuff Injury Exercises (DC) Additional Instructions: Please rest, ice, and elevate the shoulder as much as possible. You may wear the sling for comfort. You are encouraged to move and stretch the shoulder. Take Tylenol or Motrin as needed for pain. Follow-up with claim benefit specialist if symptoms do not improve in 1-2 weeks. Return to the emergency department if you experience new, concerning, or worsening symptoms. Is patient prescribed a controlled substance at d/c from ED?: No Referrals: Marcos Vazquez MD [Primary Care Provider] - 1-2 days Thad Santillan DO [Doctor of Osteopathic Medicine] - 1-2 days Time of Disposition: 16:53
== END 2021-11-24 17:05 | disposition home or self-care (01) ==
LOC: EC 15:34
DX: S49.91XA Unspecified injury of right shoulder and upper arm, initial encounter (principal); I25.10 Atherosclerotic heart disease of native coronary artery without angina pectoris; E11.9 Type 2 diabetes mellitus without complications; I10 Essential (primary) hypertension; I25.2 Old myocardial infarction; F17.200 Nicotine dependence, unspecified, uncomplicated; Z79.82 Long term (current) use of aspirin; Z79.84 Long term (current) use of oral hypoglycemic drugs; Z79.4 Long term (current) use of insulin; Z79.899 Other long term (current) drug therapy; W19.XXXA Unspecified fall, initial encounter; Y92.69 Other specified industrial and construction area as the place of occurrence of the external cause
CPT/HCPCS: 73030; 99283; 96372; J2270

== ENCOUNTER 2021-12-19 15:00 | Emergency (ER) | payer OTHER ==
[2021-12-19 15:47] VITALS: RESP 18
[2021-12-19] MEDS ORDERED: MORPHINE SULFATE 4 MG/ML SYRINGE IV STA (17:58)
[2021-12-19] MEDS ORDERED: SODIUM CHLORIDE 0.9% 500 ML 500 ML IV STA (17:58)
--- NOTE | 2021-12-19 18:02 | ED ---
General Adult HPI - General Chief complaint: Abdominal Pain Stated complaint: Abdominal pain, Revisit Right Shoulder Injury Time Seen by Provider: 12/19/21 15:50 Source: patient, RN notes reviewed Mode of arrival: ambulatory Limitations: no limitations - History of Present Illness Initial comments: Patient is a pleasant 51-year-old male presenting to the emergency department with complaints of one right shoulder pain and to abdominal pain. Right shou lder pain was since injury at work. Patient was falling and caught himself with his right arm. Patient has had discomfort since that time, increased greatly with movement. Patient was previously seen and had x-rays done. Patient is scheduled to see orthopedics. Patient has also developed abdominal pain over the past day or 2. Abdominal discomfort is right lower. Patient has decreased appetite. No fevers. No vomiting. - Related Data Home Medications Medication Instructions Recorded Confirmed Pregabalin [Lyrica] 75 mg PO BID 03/31/19 03/29/20 Albuterol Sulfate [Ventolin HFA] 2 puff INHALATION RT-Q6H PRN 03/29/20 03/29/20 Previous Rx's Medication Instructions Recorded Aspirin 81 mg PO DAILY 30 Days #30 chew 04/01/19 Clopidogrel [Plavix] 75 mg PO DAILY #30 tablet 04/01/19 Nitroglycerin Sl Tabs [Nitrostat] 0.4 mg SUBLINGUAL Q5M PRN #30 tab 04/01/19 glipiZIDE [Glucotrol] 10 mg PO BID 30 Days #60 tab 04/01/19 lisinopriL [Zestril] 2.5 mg PO DAILY 30 Days #30 tab 04/01/19 Azithromycin [Zithromax] 500 mg PO DAILY #2 tab 03/31/20 Insulin Glargine [Lantus] 50 unit SQ DAILY #2 vial 03/31/20 Ibuprofen [Motrin] 600 mg PO Q8HR PRN #30 tab 04/12/20 Lidocaine 5% Patch [Lidoderm] 1 patch TOPICAL DAILY #30 patch 04/12/20 Cyclobenzaprine [Flexeril] 10 mg PO TID PRN #12 tablet 12/19/21 Allergies Allergy/AdvReac Type Severity Reaction Status Date / Time No Known Allergies Allergy Verified 12/19/21 15:47 Review of Systems ROS Statement: Those systems with pertinent positive or pertinent negative responses have been documented in the HPI. ROS Other: All systems not noted in ROS Statement are negative. Constitutional: Denies: fever Eyes: Denies: eye pain ENT: Denies: ear pain Respiratory: Denies: cough Cardiovascular: Denies: chest pain Endocrine: Denies: fatigue Gastrointestinal: Reports: as per HPI, abdominal pain. Denies: vomiting Genitourinary: Denies: dysuria Musculoskeletal: Reports: as per HPI. Denies: back pain Skin: Denies: rash Past Medical History Past Medical History: Coronary Artery Disease (CAD), Chest Pain / Angina, Diabetes Mellitus, Hyperlipidemia, Hypertension, Myocardial Infarction ([place]) Additional Past Medical History / Comment(s): [place] 03/2019, NIDDM type II, chronic low back pain, recent R knee injury. Last Myocardial Infarction Date:: 03/31/19 History of Any Multi-Drug Resistant Organisms: None Reported Past Surgical History: Heart Catheterization With Stent, Orthopedic Surgery Additional Past Surgical History / Comment(s): PCI with stents, R knee fracture with surgery/pins and paul. Past Anesthesia/Blood Transfusion Reactions: No Reported Reaction Date of Last Stent Placement:: 03/31/19 Past Psychological History: No Psychological Hx Reported Smoking Status: Current every day smoker Past Alcohol Use History: None Reported Past Drug Use History: None Reported - Past Family History Father Family Medical History: Coronary Artery Disease (CAD) Additional Family Medical History / Comment(s): Father had MIs-pt does not recall at what age father had his first [place] Mother Additional Family Medical History / Comment(s): Mother committed suicide. General Exam Limitations: no limitations General appearance: alert, in no apparent distress Head exam: Present: normocephalic Eye exam: Present: normal appearance Neck exam: Present: normal inspection Respiratory exam: Present: normal lung sounds bilaterally Cardiovascular Exam: Present: regular rate, normal rhythm GI/Abdominal exam: Present: soft, tenderness (Moderate tenderness right lower quadrant). Absent: distended Extremities exam: Present: tenderness (Tenderness diffuse right shoulder with pain with range of motion. Distally the extremity is resting tach. No swelling. No erythema.) Neurological exam: Present: alert. Absent: motor sensory deficit Psychiatric exam: Present: normal affect, normal mood Skin exam: Present: normal color. Absent: erythema Course Vital Signs 12/19/21 15:44 Temperature 98.2 F Pulse Rate 103 H Respiratory 18 Rate Blood Pressure 155/90 O2 Sat by Pulse 96 Oximetry Medical Decision Making - Medical Decision Making Patient reevaluated and feeling much better. Patient updated on results and need for follow-up. Patient states he does have an MRI scheduled for next week. - Lab Data Result diagrams: 12/19/21 19:37 12/19/21 19:37 Lab Results 12/19/21 12/19/21 12/19/21 Range/Units 19:37 19:37 19:37 WBC 11.7 H (3.8-10.6) k/uL RBC 5.35 (4.30-5.90) m/uL Hgb 17.4 (13.0-17.5) gm/dL Hct 49.5 (39.0-53.0) % MCV 92.6 (80.0-100.0) fL MCH 32.5 (25.0-35.0) pg MCHC 35.1 (31.0-37.0) g/dL RDW 13.3 (11.5-15.5) % Plt Count 288 (150-450) k/uL MPV 7.0 Neutrophils % 57 % Lymphocytes % 30 % Monocytes % 6 % Eosinophils % 3 % Basophils % 2 % Neutrophils # 6.6 (1.3-7.7) k/uL Lymphocytes # 3.5 (1.0-4.8) k/uL Monocytes # 0.7 (0-1.0) k/uL Eosinophils # 0.3 (0-0.7) k/uL Basophils # 0.2 (0-0.2) k/uL PT 10.7 (9.0-12.0) sec INR 1.0 (<1.2) APTT 24.3 (22.0-30.0) sec Sodium 134 L (137-145) mmol/L Potassium 4.0 (3.5-5.1) mmol/L Chloride 99 (98-107) mmol/L Carbon Dioxide 26 (22-30) mmol/L Anion Gap 9 mmol/L BUN 15 (9-20) mg/dL Creatinine 0.52 L (0.66-1.25) mg/dL Est GFR (CKD-EPI)AfAm >90 (>60 ml/min/1.73 sqM) Est GFR (CKD-EPI)NonAf >90 (>60 ml/min/1.73 sqM) Glucose 244 H (74-99) mg/dL Calcium 9.1 (8.4-10.2) mg/dL Total Bilirubin 0.5 (0.2-1.3) mg/dL AST 21 (17-59) U/L ALT 20 (4-49) U/L Alkaline Phosphatase 73 (38-126) U/L Total Protein 7.2 (6.3-8.2) g/dL Albumin 4.7 (3.5-5.0) g/dL Amylase 57 (30-110) U/L Lipase 188 (23-300) U/L - Radiology Data Radiology results: report reviewed (Computed tomography scan of abdomen pelvis shows no acute process) Disposition Clinical Impression: Right shoulder injury, Abdominal pain Disposition: HOME SELF-CARE Condition: Stable Instructions (If sedation given, give patient instructions): Abdominal Pain (ED), Shoulder Sprain (ED) Additional Instructions: Please follow-up for MRI as planned. Consider orthopedic evaluation. Please follow-up with primary care physician in the next day or 2 for recheck and industrial health services. Return for increased pain, weakness, fever, vomiting, redness or swelling, worsening symptoms or other concerns. Prescription for muscle relaxers has been sent to your pharmacy Prescriptions: Cyclobenzaprine [Flexeril] 10 mg PO TID PRN #12 tablet PRN Reason: Pain Is patient prescribed a controlled substance at d/c from ED?: No Referrals: Marcos Vazquez MD [Primary Care Provider] - 1-2 days Time of Disposition: 20:56
[2021-12-19 19:56] LABS: Basophils # (A) 0.2 k/uL (0-0.2); Basophils % (A) 2 %; Eosinophils # (A) 0.3 k/uL (0-0.7); Eosinophils % (A) 3 %; HCT 49.5 % (39.0-53.0); HGB 17.4 gm/dL (13.0-17.5); Lymphocytes # (A) 3.5 k/uL (1.0-4.8); Lymphocytes % (A) 30 %; MCH 32.5 pg (25.0-35.0); MCHC 35.1 g/dL (31.0-37.0); MCV 92.6 fL (80.0-100.0); Monocytes # (A) 0.7 k/uL (0-1.0); Monocytes % (A) 6 %; Neutrophils # (A) 6.6 k/uL (1.3-7.7); Neutrophils % (A) 57 %; Platelet Count 288 k/uL (150-450); RBC 5.35 m/uL (4.30-5.90); RDW 13.3 % (11.5-15.5); WBC 11.7 k/uL (3.8-10.6)
[2021-12-19 20:09] LABS: ALT 20 U/L (4-49); AST 21 U/L (17-59); African American GFR (CKD) >90 (>60 ml/min/1.73 sqM); Albumin 4.7 g/dL (3.5-5.0); Alkaline Phosphatase 73 U/L (38-126); Amylase 57 U/L (30-110); Anion Gap 9 mmol/L; Blood Urea Nitrogen 15 mg/dL (9-20); Calcium 9.1 mg/dL (8.4-10.2); Carbon Dioxide 26 mmol/L (22-30); Chloride 99 mmol/L (98-107); Glucose 244 mg/dL (74-99); Lipase 188 U/L (23-300); Non-African American GFR(CKD) >90 (>60 ml/min/1.73 sqM); Sodium 134 mmol/L (137-145); Total Bilirubin 0.5 mg/dL (0.2-1.3); Total Protein 7.2 g/dL (6.3-8.2)
[2021-12-19 20:11] LABS: Partial Thromboplastin Time 24.3 sec (22.0-30.0); Prothrombin Time 10.7 sec (9.0-12.0)
[2021-12-19] MEDS ORDERED: NICOTINE 14MG/24HR PATCH TRANSDERM STA (20:43)
--- NOTE | 2021-12-19 20:47 | CT ---
EXAMINATION TYPE: CT abdomen pelvis w con DATE OF EXAM: 12/19/2021 COMPARISON: None HISTORY: RLQ pain CT DLP: 1541 mGycm Automated exposure control for dose reduction was used. CONTRAST: Performed with IV Contrast, patient injected with 100 mL of Isovue 300. Images obtained from the diaphragm to the floor of the pelvis with IV contrast. The lung bases are clear of infiltrate. No pleural effusion. Heart size is normal. No pericardial eff usion. There is coronary artery calcification. Liver spleen and stomach pancreas and gallbladder appear intact. The bile ducts are not dilated. There is no adrenal mass. Kidneys show satisfactory contrast opacification. There is no hydronephrosi s. Ureters are not dilated. There is no retroperitoneal adenopathy. The bladder distends smoothly. No inguinal hernia. Appendix is medial and appears normal. There is no ascites. No free air. No sign of a bowel obstruction. The lumbar vertebra appear intact. No compression fracture. Bony pelvis is intact. The hip joints are intact. Sacroiliac joints are intact. IMPRESSION: Negative CT scan abdomen and pelvis. Normal appendix.
[2021-12-19 21:17] VITALS: BP 136/72; PULSE 80; TEMP 98
== END 2021-12-19 21:13 | disposition home or self-care (01) ==
LOC: EC 15:00
DX: S49.91XA Unspecified injury of right shoulder and upper arm, initial encounter (principal); R10.31 Right lower quadrant pain; E11.9 Type 2 diabetes mellitus without complications; I10 Essential (primary) hypertension; I25.10 Atherosclerotic heart disease of native coronary artery without angina pectoris; E78.5 Hyperlipidemia, unspecified; I25.2 Old myocardial infarction; F17.200 Nicotine dependence, unspecified, uncomplicated; Z79.4 Long term (current) use of insulin; Z79.82 Long term (current) use of aspirin; Z79.84 Long term (current) use of oral hypoglycemic drugs; Z79.02 Long term (current) use of antithrombotics/antiplatelets; Z79.51 Long term (current) use of inhaled steroids; Z79.899 Other long term (current) drug therapy; W19.XXXA Unspecified fall, initial encounter; Y99.0 Civilian activity done for income or pay
CPT/HCPCS: 80053; 82150; 83690; 85025; 85610; 85730; 74177; 99284; 96374; 96361; J2270; Q9967; 36415

== ENCOUNTER 2022-01-31 16:55 | Emergency (ER) | payer OTHER ==
[2022-01-31 17:38] VITALS: BP 135/80; PULSE 101; RESP 18; TEMP 98.1
--- NOTE | 2022-01-31 19:11 | XR ---
EXAMINATION TYPE: XR shoulder complete RT DATE OF EXAM: 01/31/2022 6:05 PM INDICATION: Patient age:Male; 51 years old; Reason for study: injury and pain; COMPARISON: 11/24/2021 TECHNIQUE: The right shoulder was examined in AP, internally rotated and scapular Y projections. . FINDINGS: No evidence of acute osseous pathology, joint dislocation, or soft tissue swelling. The remaining por tions of the visualized chest are unremarkable. IMPRESSION: No acute osseous pathology.
--- NOTE | 2022-01-31 19:51 | ED ---
General Adult HPI - General Chief complaint: Extremity Injury, Upper Stated complaint: IHS-Recheck R shoulder injury Time Seen by Provider: 01/31/22 19:30 Source: patient, RN notes reviewed, old records reviewed Mode of arrival: ambulatory Limitations: no limitations - History of Present Illness Initial comments: Patient is a 51-year-old male with past medical history remarkable for type 2 diabetes, hypertension, somewhat chronic right shoulder pain presents emergency Department with worsening chronic right shoulder pain. He injured his right shoulder multiple weeks ago while at work. Since that time has been complaining of some right shoulder pain especially with flexion and movement above 90. States it inhibits his ability work as he does reach above his head. Has not yet followed up with any physician outpatient. Presents for further evaluation at this time. States he ran out of pain patches and pain meds. Denies any sensory deficits in the right arm. No other complaints at this time. - Related Data Home Medications Medication Instructions Recorded Confirmed Pregabalin [Lyrica] 75 mg PO BID 03/31/19 03/29/20 Albuterol Sulfate [Ventolin HFA] 2 puff INHALATION RT-Q6H PRN 03/29/20 03/29/20 Previous Rx's Medication Instructions Recorded Aspirin 81 mg PO DAILY 30 Days #30 chew 04/01/19 Clopidogrel [Plavix] 75 mg PO DAILY #30 tablet 04/01/19 Nitroglycerin Sl Tabs [Nitrostat] 0.4 mg SUBLINGUAL Q5M PRN #30 tab 04/01/19 glipiZIDE [Glucotrol] 10 mg PO BID 30 Days #60 tab 04/01/19 lisinopriL [Zestril] 2.5 mg PO DAILY 30 Days #30 tab 04/01/19 Azithromycin [Zithromax] 500 mg PO DAILY #2 tab 03/31/20 Insulin Glargine [Lantus] 50 unit SQ DAILY #2 vial 03/31/20 Ibuprofen [Motrin] 600 mg PO Q8HR PRN #30 tab 04/12/20 Lidocaine 5% Patch [Lidoderm] 1 patch TOPICAL DAILY #30 patch 04/12/20 Cyclobenzaprine [Flexeril] 10 mg PO TID PRN #12 tablet 12/19/21 Lidocaine 5% Patch [Lidoderm 5% 1 patch TOPICAL DAILY PRN 7 Days 08/09/22 Patch] #7 patch methocarbamoL [Robaxin-750] 750 mg PO TID PRN 7 Days #21 tab 01/31/22 Allergies Allergy/AdvReac Type Severity Reaction Status Date / Time No Known Allergies Allergy Verified 01/31/22 17:36 Review of Systems ROS Statement: Those systems with pertinent positive or pertinent negative responses have been documented in the HPI. Review of Systems: CONST: Denies fever EYES: Denies blurry vision ENT: Denies nasal congestion C/V: Denies Chest pain RESP: Denies shortness of breath GI: Denies abdominal pain : Denies dysuria SKIN: Denies rash. MSK: Endorses right shoulder pain NEURO: Denies headache ROS Other: All systems not noted in ROS Statement are negative. Past Medical History Past Medical History: Coronary Artery Disease (CAD), Chest Pain / Angina, Diabetes Mellitus, Hyperlipidemia, Hypertension, Myocardial Infarction ([place]) Additional Past Medical History / Comment(s): [place] 03/2019, NIDDM type II, chronic low back pain, recent R knee injury. Last Myocardial Infarction Date:: 03/31/19 History of Any Multi-Drug Resistant Organisms: None Reported Past Surgical History: Heart Catheterization With Stent, Orthopedic Surgery Additional Past Surgical History / Comment(s): PCI with stents, R knee fracture with surgery/pins and paul. Past Anesthesia/Blood Transfusion Reactions: No Reported Reaction Date of Last Stent Placement:: 03/31/19 Past Psychological History: No Psychological Hx Reported Smoking Status: Current every day smoker Past Alcohol Use History: None Reported Past Drug Use History: None Reported - Past Family History Father Family Medical History: Coronary Artery Disease (CAD) Additional Family Medical History / Comment(s): Father had MIs-pt does not recall at what age father had his first [place] Mother Additional Family Medical History / Comment(s): Mother committed suicide. General Exam - General Exam Comments Initial Comments: General: Appears in no acute distress. HEAD: Normal with no signs of head trauma. EYES: EOMI ENT: Hearing grossly intact RESPIRATORY: No increased work of breathing C/V: Regular rate and rhythm, peripheral pulses 2+ and intact throughout. ABD: Abdomen is nondistended. EXT: Reduced range of motion of the right upper extremity at the shoulder with no obvious deformity. Point tenderness located over the superior aspect of the right shoulder as well as on the before meals joint. Reduced range of motion with active as well as passive movement. Good distal strength. No sensory deficits. Reduced range of motion anything above 90. has been like this since injury. SKIN: No rashes or lesions observed on exposed skin. NEURO: Alert and oriented 4. No sensory deficits. Reduced strength in the r ight shoulder with movement above 90. Limitations: no limitations Course Vital Signs 01/31/22 17:36 Temperature 98.1 F Pulse Rate 101 H Respiratory 18 Rate Blood Pressure 135/80 O2 Sat by Pulse 97 Oximetry Medical Decision Making - Medical Decision Making Based on the patient's presentation and physical exam, I do believe he is experiencing chronic right shoulder pain, likely a rate of 2 rotator cuff injury. I discussed this with him, as this is chronic pain and believe he needs follow-up with orthopedic surgery for possible ultrasound or MRI as well as evaluation. Right shoulder x-ray was obtained while the patient was in triage and shows no acute findings. Patient was in agreement this plan. I will provide the patient with a prescription for lidocaine patch, Robaxin. I instructed the patient to follow up with their PCP in the next 1-3 days. I provided contact information for follow up with orthopedic surgery. I explained that the patient should return to the emergency department if they experience any worsening symptoms. Strict return precautions were discussed with the patient. The patient expressed understanding of these instructions. I answered all questions that the patient had. The patient was discharged home in good condition with their prescriptions and follow up information. Disposition Clinical Impression: Rotator cuff strain, Right shoulder pain Disposition: HOME SELF-CARE Condition: Good Instructions (If sedation given, give patient instructions): Shoulder Sprain (ED) Prescriptions: Lidocaine 5% Patch [Lidoderm 5% Patch] 1 patch TOPICAL DAILY PRN 7 Days #7 patch PRN Reason: Pain methocarbamoL [Robaxin-750] 750 mg PO TID PRN 7 Days #21 tab PRN Reason: Pain Is patient prescribed a controlled substance at d/c from ED?: No Referrals: Marcos Vazquez MD [Primary Care Provider] - 1-2 days Татьяна Guzman NPC [Nurse Practitioner] - 1-2 days Time of Disposition: 19:45
== END 2022-01-31 20:15 | disposition home or self-care (01) ==
LOC: EC 16:55
DX: S46.011A Strain of muscle(s) and tendon(s) of the rotator cuff of right shoulder, initial encounter (principal); E11.9 Type 2 diabetes mellitus without complications; I10 Essential (primary) hypertension; Z79.84 Long term (current) use of oral hypoglycemic drugs; Z79.4 Long term (current) use of insulin; Z79.899 Other long term (current) drug therapy; I25.10 Atherosclerotic heart disease of native coronary artery without angina pectoris; E78.5 Hyperlipidemia, unspecified; I25.2 Old myocardial infarction; F17.200 Nicotine dependence, unspecified, uncomplicated
CPT/HCPCS: 99283

== ENCOUNTER 2022-06-27 15:40 | Observation (INO) | payer OTHER ==
[2022-06-27 15:57] LABS: Glucose,Whole Blood 320 mg/dL (70-110)
--- NOTE | 2022-06-27 15:57 | ED ---
Recheck HPI - General Source: patient, RN notes reviewed Mode of arrival: ambulatory Limitations: no limitations <Thad Montemayor - Last Filed: 06/27/22 15:56> <Hayden Iyer - Last Filed: 06/27/22 18:08> - General Chief Complaint: Recheck/Abnormal Lab/Rx Stated Complaint: diabetic issue Time Seen by Provider: 06/27/22 15:56 - History of Present Illness Initial Comments: 52-year-old male presents emergency Department with chief complaint of hyperglycemia. Patient's intubated to be because his blood sugar was over 300. Patient does admit to nausea, generalized weakness. Denies chest pain shortness of breath. Denies recent infections denies any significant diarrhea constipation patient has no dysuria. No chest pain (Thad Montemayor) This a 52-year-old male who presents to the emergency department with the complaint of hyperglycemia. Patient states he has diabetes. Patient states he never checks his sugar because he doesn't like to poke himself. Patient states she went to the doctor's office today as he was feeling nauseated and weak and his sugar was elevated as was his urine positive for ketones and sugar. Patient came into the emergency department to be further evaluated. Patient denies any recent fever chills or cough. Patient denies chest pain difficult breathing shortness of breath per patient denies abdominal pain patient's nausea vomiting diarrhea. (Hayden Iyer) - Related Data Home Medications Medication Instructions Recorded Confirmed Pregabalin [Lyrica] 75 mg PO BID 03/31/19 03/29/20 Albuterol Sulfate [Ventolin HFA] 2 puff INHALATION RT-Q6H PRN 03/29/20 03/29/20 Previous Rx's Medication Instructions Recorded Aspirin 81 mg PO DAILY 30 Days #30 chew 04/01/19 Clopidogrel [Plavix] 75 mg PO DAILY #30 tablet 04/01/19 Nitroglycerin Sl Tabs [Nitrostat] 0.4 mg SUBLINGUAL Q5M PRN #30 tab 04/01/19 glipiZIDE [Glucotrol] 10 mg PO BID 30 Days #60 tab 04/01/19 lisinopriL [Zestril] 2.5 mg PO DAILY 30 Days #30 tab 04/01/19 Azithromycin [Zithromax] 500 mg PO DAILY #2 tab 03/31/20 Insulin Glargine [Lantus] 50 unit SQ DAILY #2 vial 03/31/20 Ibuprofen [Motrin] 600 mg PO Q8HR PRN #30 tab 04/12/20 Lidocaine 5% Patch [Lidoderm] 1 patch TOPICAL DAILY #30 patch 04/12/20 Cyclobenzaprine [Flexeril] 10 mg PO TID PRN #12 tablet 12/19/21 Lidocaine 5% Patch [Lidoderm 5% 1 patch TOPICAL DAILY PRN 7 Days 01/31/22 Patch] #7 patch methocarbamoL [Robaxin-750] 750 mg PO TID PRN 7 Days #21 tab 01/31/22 Allergies Allergy/AdvReac Type Severity Reaction Status Date / Time No Known Allergies Allergy Verified 06/27/22 15:56 Review of Systems ROS Other: All systems not noted in ROS Statement are negative. <Thad Montemayor - Last Filed: 06/27/22 15:56> ROS Other: All systems not noted in ROS Statement are negative. <Hayden Iyer - Last Filed: 06/27/22 18:08> ROS Statement: Those systems with pertinent positive or pertinent negative responses have been documented in the HPI. Past Medical History Past Medical History: Coronary Artery Disease (CAD), Chest Pain / Angina, Diabetes Mellitus, Hyperlipidemia, Hypertension, Myocardial Infarction ([place]) Additional Past Medical History / Comment(s): [place] 03/2019, NIDDM type II, chronic low back pain, recent R knee injury. Last Myocardial Infarction Date:: 03/31/19 History of Any Multi-Drug Resistant Organisms: None Reported Past Surgical History: Heart Catheterization With Stent, Orthopedic Surgery Additional Past Surgical History / Comment(s): PCI with stents, R knee fracture with surgery/pins and paul. Past Anesthesia/Blood Transfusion Reactions: No Reported Reaction Date of Last Stent Placement:: 03/31/19 Past Psychological History: No Psychological Hx Reported Smoking Status: Current every day smoker Past Alcohol Use History: None Reported Past Drug Use History: None Reported - Past Family History Father Family Medical History: Coronary Artery Disease (CAD) Additional Family Medical History / Comment(s): Father had MIs-pt does not recall at what age father had his first [place] Mother Additional Family Medical History / Comment(s): Mother committed suicide. <Thad Montemayor - Last Filed: 06/27/22 15:56> General Exam Limitations: no limitations <Thad Montemayor - Last Filed: 06/27/22 15:56> <Hayden Iyer - Last Filed: 06/27/22 18:08> - General Exam Comments Initial Comments: GENERAL: Patient is well-developed and well-nourished. Patient is nontoxic and well-hydr ated and is in mild distress. ENT: Neck is soft and supple. No significant lymphadenopathy is noted. Oropharynx is clear. Moist mucous membranes. Neck has full range of motion without eliciting any pain. EYES: The sclera were anicteric and conjunctiva were pink and moist. Extraocular movements were intact and pupils were equal round and reactive to light. Eyelids were unremarkable. PULMONARY: Unlabored respirations. Good breath sounds bilaterally. No audible rales rhonchi or wheezing was noted. CARDIOVASCULAR: There is a regular rate and rhythm without any murmurs gallops or rubs. ABDOMEN: Patient has some mild epigastric abdominal pain SKIN: Skin is clear with no lesions or rashes and otherwise unremarkable. NEUROLOGIC: Patient is alert and oriented x3. Cranial nerves II through XII are grossly intact. Motor and sensory are also intact. Normal speech, volume and content. Symmetrical smile. MUSCULOSKELETAL: Normal extremities with adequate strength and full range of motion. No lower extremity swelling or edema. No calf tenderness. LYMPHATICS: No significant lymphadenopathy is noted PSYCHIATRIC: Normal psychiatric evaluation. (Hayden Iyer) Course Vital Signs 06/27/22 15:52 Temperature 97.8 F Pulse Rate 101 H Respiratory 18 Rate Blood Pressure 126/79 O2 Sat by Pulse 98 Oximetry Medical Decision Making - Lab Data Result diagrams: 06/27/22 16:08 06/27/22 16:08 <Hayden Iyer - Last Filed: 06/27/22 18:08> - Medical Decision Making EKG is interpreted by myself EKG shows sinus rhythm at 85 bpm VT interval 232 QRS is 88 QT interval 324 QTC is 366. Patient's EKG shows no ST segment elevation or depression. Was pt. sent in by a medical professional or institution? @ -Primary medical care doctor sent the patient in Did you speak to anyone other than the patient for history? @ -I with the to get most of the history patient wasn't is forthcoming. Did you review nursing and triage notes? @ -I agree with the nursing triage notes Were old charts reviewed? @ -None Differential Diagnosis? @ -Differential Abdominal Pain Men: Appendicitis, cholecystitis, diverticulosis, ischemic bowel, pancreatitis, hepatitis, UTI, gastroenteritis, AAA, incarcerated hernia, bowel obstruction, constipation, inflammatory bowel, hepatitis, peptic ulcer disease, splenic infarction, perforated viscus, testicular torsion, this is not meant to be an all-inclusive list EKG interpreted by me (3pts min.)? @ -As above X-rays interpreted by me (1pt min.)? @ -Decision was interpreted by myself showed no acute abnormality CT interpreted by me (1pt min.)? @ -No U/S interpreted by me (1pt. min.)? @ -None What testing was considered but not performed? (CT, X-rays, U/S, labs)? Why? @ -No What meds were considered but not given? Why? @ -No Did you discuss the management of the patient with other professionals? @ -I spoke with [facility] hospitalist physicians agreed to admit the patient admitted the patient I wrote admitting orders Did you reconcile home meds? @ -None Was smoking cessation discussed for >3mins.? @ -None Was critical care preformed (if so, how long)? @ -Known Were there social determinants of health that impacted care today? How? (Homelessness, low income, unemployed, alcoholism, drug addiction, transportation, low edu. Level, literacy, decrease access to med. care, fdc, rehab)? @ -None Was there de-escalation of care discussed even if they declined? (Discuss DNR or withdrawal of care, Hospice)? @ -No What co-morbidities impacted this encounter? (DM, HTN, Smoking, COPD, CAD, Cancer, CVA, Hep., AIDS, mental health diagnosis, sleep apnea, morbid obesity)? @ -Diabetes. Having persistent vomiting secondary to Rider taste good significantly affected diabetes and high sugars. Continue to rehydrate the patient Was patient admitted / discharged? @ -Admitted the patient for pancreatitis Undiagnosed new problem with uncertain prognosis? @ -None Drug Therapy requiring intensive monitoring for toxicity (Heparin, Nitro, Insulin, Cardizem)? @ -None Were any procedures done? @ -None Diagnosis/symptom? @ -Pancreatitis Acute, or Chronic, or Acute on Chronic? @ -Acute Uncomplicated (without systemic symptoms) or Complicated (systemic symptoms)? @ -Complicated Side effects of treatment? @ -None Exacerbation, Progression, or Severe Exacerbation] @ -None Poses a threat to life or bodily function? @ -No Diagnosis/symptom? @ -Hyperglycemia Acute, or Chronic, or Acute on Chronic? @ -Acute on chronic Uncomplicated (without systemic symptoms) or Complicated (systemic symptoms)? @ -Uncomplicated Side effects of treatment? @ -None Exacerbation, Progression, or Severe Exacerbation] @ -Exacerbation of cancer Poses a threat to life or bodily function? @ -None (Hayden Iyer) - Lab Data Lab Results 06/27/22 06/27/22 06/27/22 Range/Units 15:55 16:08 16:08 WBC 12.4 H (3.8-10.6) k/uL RBC 5.82 (4.30-5.90) m/uL Hgb 18.6 H (13.0-17.5) gm/dL Hct 51.0 (39.0-53.0) % MCV 87.6 (80.0-100.0) fL MCH 32.0 (25.0-35.0) pg MCHC 36.5 (31.0-37.0) g/dL RDW 12.8 (11.5-15.5) % Plt Count 265 (150-450) k/uL MPV 7.8 Neutrophils % 63 % Lymphocytes % 27 % Monocytes % 5 % Eosinophils % 1 % Basophils % 1 % Neutrophils # 7.9 H (1.3-7.7) k/uL Lymphocytes # 3.3 (1.0-4.8) k/uL Monocytes # 0.6 (0-1.0) k/uL Eosinophils # 0.2 (0-0.7) k/uL Basophils # 0.1 (0-0.2) k/uL Sodium (137-145) mmol/L Potassium (3.5-5.1) mmol/L Chloride (98-107) mmol/L Carbon Dioxide (22-30) mmol/L Anion Gap mmol/L BUN (9-20) mg/dL Creatinine (0.66-1.25) mg/dL Est GFR (CKD-EPI)AfAm (>60 ml/min/1.73 sqM) Est GFR (CKD-EPI)NonAf (>60 ml/min/1.73 sqM) Glucose (74-99) mg/dL POC Glucose (mg/dL) 320 H (70-110) mg/dL POC Glu Hand Tile Maker ID Igor Banks Plasma Lactic Acid Braden (0.7-2.0) mmol/L Calcium (8.4-10.2) mg/dL Magnesium (1.6-2.3) mg/dL Total Bilirubin (0.2-1.3) mg/dL AST (17-59) U/L ALT (4-49) U/L Alkaline Phosphatase (38-126) U/L Total Protein (6.3-8.2) g/dL Albumin (3.5-5.0) g/dL Amylase (30-110) U/L Lipase (23-300) U/L Urine Color Yellow Urine Appearance Clear (Clear) Urine pH 5.5 (5.0-8.0) Ur Specific [place] 1.045 H (1.001-1.035) Urine Protein 1+ H (Negative) Urine Glucose (UA) 4+ H (Negative) Urine Ketones Trace H (Negative) Urine Blood Negative (Negative) Urine Nitrite Negative (Negative) Urine Bilirubin Negative (Negative) Urine Urobilinogen <2.0 (<2.0) mg/dL Ur Leukocyte Esterase Negative (Negative) Urine RBC <1 (0-5) /hpf Urine WBC <1 (0-5) /hpf Ur Squamous Epith Cells <1 (0-4) /hpf Urine Mucus Rare H (None) /hpf 06/27/22 06/27/22 06/27/22 Range/Units 16:08 16:08 16:54 WBC (3.8-10.6) k/uL RBC (4.30-5.90) m/uL Hgb (13.0-17.5) gm/dL Hct (39.0-53.0) % MCV (80.0-100.0) fL MCH (25.0-35.0) pg MCHC (31.0-37.0) g/dL RDW (11.5-15.5) % Plt Count (150-450) k/uL MPV Neutrophils % % Lymphocytes % % Monocytes % % Eosinophils % % Basophils % % Neutrophils # (1.3-7.7) k/uL Lymphocytes # (1.0-4.8) k/uL Monocytes # (0-1.0) k/uL Eosinophils # (0-0.7) k/uL Basophils # (0-0.2) k/uL Sodium 133 L (137-145) mmol/L Potassium 4.9 (3.5-5.1) mmol/L Chloride 99 (98-107) mmol/L Carbon Dioxide 21 L (22-30) mmol/L Anion Gap 13 mmol/L BUN 16 (9-20) mg/dL Creatinine 0.47 L (0.66-1.25) mg/dL Est GFR (CKD-EPI)AfAm >90 (>60 ml/min/1.73 sqM) Est GFR (CKD-EPI)NonAf >90 (>60 ml/min/1.73 sqM) Glucose 320 H (74-99) mg/dL POC Glucose (mg/dL) 379 H (70-110) mg/dL POC Glu Hand Tile Maker ID FelicitasChristine Plasma Lactic Acid Braden 1.8 (0.7-2.0) mmol/L Calcium 9.6 (8.4-10.2) mg/dL Magnesium 1.8 (1.6-2.3) mg/dL Total Bilirubin 0.7 (0.2-1.3) mg/dL AST 24 (17-59) U/L ALT 24 (4-49) U/L Alkaline Phosphatase 94 (38-126) U/L Total Protein 7.5 (6.3-8.2) g/dL Albumin 4.7 (3.5-5.0) g/dL Amylase 117 H (30-110) U/L Lipase 988 H (23-300) U/L Urine Color Urine Appearance (Clear) Urine pH (5.0-8.0) Ur Specific [place] (1.001-1.035) Urine Protein (Negative) Urine Glucose (UA) (Negative) Urine Ketones (Negative) Urine Blood (Negative) Urine Nitrite (Negative) Urine Bilirubin (Negative) Urine Urobilinogen (<2.0) mg/dL Ur Leukocyte Esterase (Negative) Urine RBC (0-5) /hpf Urine WBC (0-5) /hpf Ur Squamous Epith Cells (0-4) /hpf Urine Mucus (None) /hpf Disposition <Thad Montemayor - Last Filed: 06/27/22 15:56> Time of Disposition: 18:08 <Hayden Iyer - Last Filed: 06/27/22 18:08> Clinical Impression: Pancreatitis, Hyperglycemia Disposition: ADMITTED IP TO THIS HOSP Referrals: Shawnee Carrion MD [Primary Care Provider] - 1-2 days
[2022-06-27 16:44] LABS: Appearance,Urine Clear (Clear); Bilirubin,Urine Negative (Negative); Blood,Urine Negative (Negative); Color,Urine Yellow; Glucose,Urine (UA) 4+ (Negative); Ketones,Urine Trace (Negative); Leukocyte Esterase,Urine Negative (Negative); Mucus,Urine Rare /hpf; Nitrite,Urine Negative (Negative); PH, Urine 5.5 (5.0-8.0); Protein,Urine 1+ (Negative); RBC,Urine <1 /hpf (0-5); Specific Gravity,Urine 1.045 (1.001-1.035); Squamous Epithelial Cell,Urine <1 /hpf (0-4); Urobilinogen,Urine <2.0 mg/dL (<2.0); WBC,Urine <1 /hpf (0-5)
[2022-06-27 16:45] LABS: Basophils # (A) 0.1 k/uL (0-0.2); Basophils % (A) 1 %; Eosinophils # (A) 0.2 k/uL (0-0.7); Eosinophils % (A) 1 %; HGB 18.6 gm/dL (13.0-17.5); Lymphocytes # (A) 3.3 k/uL (1.0-4.8); Lymphocytes % (A) 27 %; MCHC 36.5 g/dL (31.0-37.0); MCV 87.6 fL (80.0-100.0); Mean Platelet Volume 7.8; Monocytes # (A) 0.6 k/uL (0-1.0); Monocytes % (A) 5 %; Neutrophils # (A) 7.9 k/uL (1.3-7.7); Neutrophils % (A) 63 %; Platelet Count 265 k/uL (150-450); RBC 5.82 m/uL (4.30-5.90); RDW 12.8 % (11.5-15.5); WBC 12.4 k/uL (3.8-10.6)
[2022-06-27 16:56] LABS: Glucose,Whole Blood 379 mg/dL (70-110)
[2022-06-27 17:09] LABS: ALT 24 U/L (4-49); AST 24 U/L (17-59); African American GFR (CKD) >90 (>60 ml/min/1.73 sqM); Albumin 4.7 g/dL (3.5-5.0); Alkaline Phosphatase 94 U/L (38-126); Amylase 117 U/L (30-110); Anion Gap 13 mmol/L; Blood Urea Nitrogen 16 mg/dL (9-20); Calcium 9.6 mg/dL (8.4-10.2); Carbon Dioxide 21 mmol/L (22-30); Chloride 99 mmol/L (98-107); Glucose 320 mg/dL (74-99); Lipase 988 U/L (23-300); Non-African American GFR(CKD) >90 (>60 ml/min/1.73 sqM); Potassium 4.9 mmol/L (3.5-5.1); Sodium 133 mmol/L (137-145); Total Bilirubin 0.7 mg/dL (0.2-1.3); Total Protein 7.5 g/dL (6.3-8.2)
[2022-06-27 17:41] LABS: Magnesium 1.8 mg/dL (1.6-2.3)
--- NOTE | 2022-06-27 17:49 | XR ---
EXAMINATION TYPE: XR chest 2V DATE OF EXAM: 06/27/2022 COMPARISON: 04/12/2020 HISTORY: Difficulty breathing TECHNIQUE: FINDINGS: Heart is normal. Lungs are clear. Diaphragm is normal. Bony thorax is intact. No pleural ef fusion. IMPRESSION: Normal chest. There is clearing of the minimal atelectasis in the left lung compared to o ld exam.
[2022-06-27] MEDS ORDERED: SODIUM CHLORIDE 0.9% 1,000 ML IV ONE (18:08)
[2022-06-27] MEDS ORDERED: DEXTROSE 50% SYRINGE 50 ML IVP PRN ×2 (18:10)
[2022-06-27 20:48] LABS: Glucose,Whole Blood 289 mg/dL (70-110)
[2022-06-27] MEDS: INSULIN ASPART (NovoLOG) 100 UNIT/ML VIAL SQ SCH (20:49)
[2022-06-28 07:35] LABS: Glucose,Whole Blood 273 mg/dL (70-110)
[2022-06-28] MEDS: INSULIN ASPART (NovoLOG) 100 UNIT/ML VIAL SQ SCH ×2 (07:47→12:36)
--- NOTE | 2022-06-28 08:18 | P.HPIM ---
History of Present Illness H&P Date: 06/27/22 Chief Complaint: Hyperglycemia/abdominal pain/nausea 52-year-old male, history of diabetes mellitus, hypertension, hyperlipidemia, coronary artery disease who presents to the emergency department with the complaint of hyperglycemia. Patient states he has diabetes. Patient states he never checks his sugar because he doesn't like to poke himself. Patient states she went to the doctor's office today as he was feeling nauseated and weak and his sugar was elevated as was his urine positive for ketones and sugar. Patient came into the emergency department to be further evaluated. Patient denies any recent fever chills or cough. Patient denies chest pain difficult breathing shortness of breath per patient denies abdominal pain patient's nausea vomiting diarrhea. Blood work completed in ED diffuse to PBC of 12.4, hemoglobin of 18.6, hematocrit 51.0 and platelet count of 265, blood glucose was elevated at 379, sodium 133, potassium 4.9, BUN/creatinine of 16/0.47, lactic acid level of 1.8, amylase elevated at 117, lipase elevated at 988, liver enzymes are within normal limit; urine is positive for trace ketones Patient is admitted for hyperglycemia and pancreatitis Review of Systems REVIEW OF SYSTEMS: CONSTITUTIONAL: No fever, no malaise, no fatigue. HEENT: No recent visual problems or hearing problems. Denied any sore throat. CARDIOVASCULAR: No chest pain, orthopnea, PND, no palpitations, no syncope. PULMONARY: No shortness of breath, no cough, no hemoptysis. GASTROINTESTINAL: Complains of nausea, no vomiting, diffuse abdominal pain. NEUROLOGICAL: No headaches, no weakness, no numbness. HEMATOLOGICAL: Denies any bleeding or petechiae. GENITOURINARY: Denies any burning micturition, frequency, or urgency. MUSCULOSKELETAL/RHEUMATOLOGICAL: Denies any joint pain, swelling, or any muscle pain. ENDOCRINE: Denies any polyuria or polydipsia. The rest of the 14-point review of systems is negative. Past Medical History Past Medical History: Coronary Artery Disease (CAD), Chest Pain / Angina, Diabetes Mellitus, Hyperlipidemia, Hypertension, Myocardial Infarction (NE) Additional Past Medical History / Comment(s): NE 03/2019, NIDDM type II, chronic low back pain, recent R knee injury. Last Myocardial Infarction Date:: 03/31/19 History of Any Multi-Drug Resistant Organisms: None Reported Past Surgical History: Heart Catheterization With Stent, Orthopedic Surgery Additional Past Surgical History / Comment(s): PCI with stents, R knee fracture with surgery/pins and paul. Past Anesthesia/Blood Transfusion Reactions: No Reported Reaction Date of Last Stent Placement:: 03/31/19 Past Psychological History: No Psychological Hx Reported Smoking Status: Current every day smoker Past Alcohol Use History: None Reported Past Drug Use History: None Reported - Past Family History Father Family Medical History: Coronary Artery Disease (CAD) Additional Family Medical History / Comment(s): Father had MIs-pt does not recall at what age father had his first NE Mother Additional Family Medical History / Comment(s): Mother committed suicide. Medications and Allergies Home Medications Medication Instructions Recorded Confirmed Type Aspirin 81 mg PO DAILY 30 Days #30 chew 04/01/19 06/27/22 Rx glipiZIDE [Glucotrol] 10 mg PO BID 30 Days #60 tab 04/01/19 06/27/22 Rx Cholecalciferol [Vitamin D3 (25 25 mcg PO DAILY 06/27/22 06/27/22 History Mcg = 1000 Iu)] Lipitor(Unknown) 1 tab PO Q7D 06/27/22 06/27/22 History Loratadine 10 mg PO DAILY 06/27/22 06/27/22 History Losartan(Unknown Dose) 1 tab PO DAILY 06/27/22 06/27/22 History Allergies Allergy/AdvReac Type Severity Reaction Status Date / Time No Known Allergies Allergy Verified 06/27/22 18:32 Physical Exam Vitals: Vital Signs Temp Pulse Resp BP Pulse Ox 06/27/22 15:52 97.8 F 101 H 18 126/79 98 Intake and Output 06/27/22 06/27/22 06/27/22 06:59 14:59 22:59 Other: Weight 86.183 kg PHYSICAL EXAMINATION: GENERAL: The patient is alert and oriented x3, not in any acute distress. Well developed, well nourished. HEENT: Pupils are round and equally reacting to light. EOMI. No scleral icterus. No conjunctival pallor. Normocephalic, atraumatic. No pharyngeal erythema. No th yromegaly. CARDIOVASCULAR: S1 and S2 present. No murmurs, rubs, or gallops. PULMONARY: Chest is clear to auscultation, no wheezing or crackles. ABDOMEN: Soft, diffuse tenderness more so in the epigastric region, nondistended, normoactive bowel sounds. No palpable organomegaly. MUSCULOSKELETAL: No joint swelling or deformity. EXTREMITIES: No cyanosis, clubbing, or pedal edema. NEUROLOGICAL: Gross neurological examination did not reveal any focal deficits. SKIN: No rashes. Results CBC & Chem 7: 06/27/22 16:08 06/27/22 16:08 Labs: Abnormal Lab Results - Last 24 Hours (Table) 06/27/22 06/27/22 06/27/22 Range/Units 15:55 16:08 16:08 WBC 12.4 H (3.8-10.6) k/uL Hgb 18.6 H (13.0-17.5) gm/dL Neutrophils # 7.9 H (1.3-7.7) k/uL Sodium (137-145) mmol/L Carbon Dioxide (22-30) mmol/L Creatinine (0.66-1.25) mg/dL Glucose (74-99) mg/dL POC Glucose (mg/dL) 320 H (70-110) mg/dL Amylase (30-110) U/L Lipase (23-300) U/L Ur Specific [place] 1.045 H (1.001-1.035) Urine Protein 1+ H (Negative) Urine Glucose (UA) 4+ H (Negative) Urine Ketones Trace H (Negative) Urine Mucus Rare H (None) /hpf 06/27/22 06/27/22 Range/Units 16:08 16:54 WBC (3.8-10.6) k/uL Hgb (13.0-17.5) gm/dL Neutrophils # (1.3-7.7) k/uL Sodium 133 L (137-145) mmol/L Carbon Dioxide 21 L (22-30) mmol/L Creatinine 0.47 L (0.66-1.25) mg/dL Glucose 320 H (74-99) mg/dL POC Glucose (mg/dL) 379 H (70-110) mg/dL Amylase 117 H (30-110) U/L Lipase 988 H (23-300) U/L Ur Specific [place] (1.001-1.035) Urine Protein (Negative) Urine Glucose (UA) (Negative) Urine Ketones (Negative) Urine Mucus (None) /hpf Assessment and Plan Assessment: 1. Hyperglycemia without acidosis/ diabetes mellitus type 2; noncompliance; hemoglobin A1c is elevated at 13.2 with estimated average blood glucose of 338; patient takes home which is placed on hold - We will continue to monitor Accu-Cheks every before meals and at bedtime with insulin sliding scale - Patient will need adjustment of oral hypoglycemic therapy at time of discharge 2. Acute pancreatitis as indicated by elevated amylase and lipase, elevated at 117 and 1988 respectively - Patient has been admitted for further treatment; will remain nothing by mouth; continue with IV fluids in form of normal saline at a rate of 100 mL an hour - We will add Protonix 40 mg IV daily - Pain controlled with IV morphine - We will repeat amylase and lipase in a.m.; order right upper quadrant ultrasound 3. Mild hyponatremia; sodium at 133; continue with IV fluids as indicated above and monitor electrolytes closely 4. Hypertension; patient takes losartan at home which is currently placed on hold since blood pressure remained soft; we will reinstate home medications once oral intake is established and blood pressures improved 5. Hyperlipidemia; Lipitor remains on hold as indicated above 6. Seasonal ALLERGY; patient takes loratadine 10 mg daily DVT prophylaxis; SCDs CODE STATUS; full code
[2022-06-28] MEDS ORDERED: SODIUM CHLORIDE 0.9% 1,000 ML IV SCH (08:30)
[2022-06-28 08:47] LABS: Basophils # (A) 0.08 X 10*3/uL (0.00-0.10); Basophils % (A) 0.9 %; Eosinophils # (A) 0.25 X 10*3/uL (0.04-0.35); Eosinophils % (A) 2.8 %; HCT 47.6 % (39.6-50.0); Immature Grans, Automated 0.3 %; Lymphocytes # (A) 3.44 X 10*3/uL (0.90-5.00); Lymphocytes % (A) 38.6 %; MCH 30.6 pg (27.0-32.0); MCHC 35.7 g/dL (32.0-37.0); MCV 85.6 fL (80.0-97.0); Mean Platelet Volume 9.1 fL (9.5-12.2); Monocytes # (A) 0.58 X 10*3/uL (0.20-1.00); Monocytes % (A) 6.5 %; NRBC Per 100 WBC 0 /100 WBCS (0.0-0.0); Neutrophils # (A) 4.54 X 10*3/uL (1.80-7.70); Neutrophils % (A) 50.9 %; Platelet Count 242 X 10*3/uL (140-440); RBC 5.56 X 10*6/uL (4.40-5.60); RDW 12.7 % (11.5-14.5); WBC 8.92 X 10*3/uL (4.50-10.00)
[2022-06-28 08:51] LABS: African American GFR (CKD) 146.4 (60.0-200.0); Anion Gap 8.6 mmol/L (10.00-18.00); BUN/Creat Ratio 28.2 Ratio (12.00-20.00); Blood Urea Nitrogen 14.1 mg/dL (9.0-27.0); Calcium 8.9 mg/dL (8.7-10.3); Carbon Dioxide 23.4 mmol/L (20.0-27.5); Non-African American GFR(CKD) 126.4 (60.0-200.0); Potassium 4.1 mmol/L (3.5-5.5)
[2022-06-28] MEDS ORDERED: PANTOPRAZOLE 40 MG/10 ML VIAL IVP SCH (09:00)
--- NOTE | 2022-06-28 11:14 | US ---
EXAMINATION TYPE: US abdomen complete DATE OF EXAM: 06/28/2022 COMPARISON: CT 12/19/2021 CLINICAL HISTORY: 52-year-old male Acute pancreatitis. Abnormal labs, ABD pain TECHNIQUE: Multiple sonographic images of the abdomen are obtained. FINDINGS: EXAM MEASUREMENTS: Liver Length: 16.8 cm Gallbladder Wall: 0.2 cm CBD: 0.4 cm Spleen: 10.5 cm Right Kidney: 11.7 x 5.7 x 5.9 cm Left Kidney: 12.1 x 6.5 x 6.0 cm Pancreas: 2mm duct visualized, within normal limits, tail obscured by overlying bowel gas Liver: Increased echogenicity. No focal lesion. Gallbladder: wnl Evidence for sonographic Diaz's sign: No CBD: wnl Spleen: wnl Right Kidney: wnl Left Kidney: wnl Upper IVC: wnl Abd Aorta: wnl IMPRESSION: 1. Pancreatic tail is obscured. No evident peripancreatic fluid along the visualized portions. 2. Moderate hepatic steatosis. 3. No gallstones or biliary ductal dilatation.
[2022-06-28 12:27] LABS: Glucose,Whole Blood 225 mg/dL (70-110)
[2022-06-28] MEDS ORDERED: INSULIN ASPART (NovoLOG) 100 UNIT/ML VIAL SQ SCH (12:30)
--- NOTE | 2022-06-28 12:45 | P.DS ---
Providers Date of admission: 06/27/22 18:09 Expected date of discharge: 06/28/22 Attending physician: Navid Rajput Primary care physician: [facility] Course: 52-year-old male, history of diabetes mellitus, hypertension, hyperlipidemia, coronary artery disease who presents to the emergency department with the complaint of hyperglycemia. Patient states he has diabetes. Patient states he never checks his sugar because he doesn't like to poke himself. Patient states she went to the doctor's office today as he was feeling nauseated and weak and his sugar was elevated as was his urine positive for ketones and sugar. Patient came into the emergency department to be further evaluated. Patient denies any recent fever chills or cough. Patient denies chest pain difficult breathing shortness of breath per patient denies abdominal pain patient's nausea vomiting diarrhea. Blood work completed in ED diffuse to PBC of 12.4, hemoglobin of 18.6, hematocrit 51.0 and platelet count of 265, blood glucose was elevated at 379, sodium 133, potassium 4.9, BUN/creatinine of 16/0.47, lactic acid level of 1.8, amylase elevated at 117, lipase elevated at 988, liver enzymes are within normal limit; urine is positive for trace ketones Patient is admitted for hyperglycemia and pancreatitis 1. Hyperglycemia without acidosis/ diabetes mellitus type 2; noncompliance; hemoglobin A1c is elevated at 13.2 with estimated average blood glucose of 338; patient takes home which is placed on hold - We will continue to monitor Accu-Cheks every before meals and at bedtime with insulin sliding scale - Patient will need adjustment of oral hypoglycemic therapy at time of discharge 2. Acute pancreatitis as indicated by elevated amylase and lipase, elevated at 117 and 1988 respectively - Patient has been admitted for further treatment; will remain nothing by mouth; continue with IV fluids in form of normal saline at a rate of 100 mL an hour - We will add Protonix 40 mg IV daily - Pain controlled with IV morphine - We will repeat amylase and lipase in a.m.; order right upper quadrant ultrasound 3. Mild hyponatremia; sodium at 133; continue with IV fluids as indicated above and monitor electrolytes closely 4. Hypertension; patient takes losartan at home which is currently placed on hold since blood pressure remained soft; we will reinstate home medications once oral intake is established and blood pressures improved 5. Hyperlipidemia; Lipitor remains on hold as indicated above 6. Seasonal ALLERGY; patient takes loratadine 10 mg daily Patient did respond well to treatment; repeat amylase lipase was down to normal; patient is started on a regular diet with plans for discharge if able to tolerate Plan - Discharge Summary New Discharge Prescriptions: Continue Aspirin 81 mg PO DAILY 30 Days #30 chew glipiZIDE [Glucotrol] 10 mg PO BID 30 Days #60 tab Cholecalciferol [Vitamin D3 (25 Mcg = 1000 Iu)] 25 mcg PO DAILY Loratadine 10 mg PO DAILY Losartan(Unknown Dose) 1 tab PO DAILY Lipitor(Unknown) 1 tab PO Q7D Discharge Medication List Aspirin 81 mg PO DAILY 30 Days #30 chew 04/01/19 [Rx] glipiZIDE [Glucotrol] 10 mg PO BID 30 Days #60 tab 04/01/19 [Rx] Cholecalciferol [Vitamin D3 (25 Mcg = 1000 Iu)] 25 mcg PO DAILY 06/27/22 [History] Lipitor(Unknown) 1 tab PO Q7D 06/27/22 [History] Loratadine 10 mg PO DAILY 06/27/22 [History] Losartan(Unknown Dose) 1 tab PO DAILY 06/27/22 [History] Follow up Appointment(s)/Referral(s): Shawnee Carrion MD [Primary Care Provider] - 1-2 days Discharge Disposition: HOME SELF-CARE
[2022-06-28 13:38] VITALS: BP 100/62; PULSE 72; RESP 18; TEMP 98.1
== END 2022-06-28 13:37 | disposition home or self-care (01) ==
LOC: EC 15:40 → INTOOBSV 18:09 → 5NMEDONC 18:09
PROVIDERS: ADMIT Hospitalist; ATTEND Hospitalist
DX: E11.65 Type 2 diabetes mellitus with hyperglycemia (principal); K85.90 Acute pancreatitis without necrosis or infection, unspecified; E87.1 Hypo-osmolality and hyponatremia; I25.10 Atherosclerotic heart disease of native coronary artery without angina pectoris; Z91.198 Patient's noncompliance with other medical treatment and regimen for other reason; I25.2 Old myocardial infarction; E78.5 Hyperlipidemia, unspecified; I10 Essential (primary) hypertension; G89.29 Other chronic pain; M54.50 Low back pain, unspecified; F17.200 Nicotine dependence, unspecified, uncomplicated; J30.2 Other seasonal allergic rhinitis; K76.0 Fatty (change of) liver, not elsewhere classified; Z79.82 Long term (current) use of aspirin; Z79.84 Long term (current) use of oral hypoglycemic drugs; Z79.899 Other long term (current) drug therapy; Z87.828 Personal history of other (healed) physical injury and trauma; Z95.5 Presence of coronary angioplasty implant and graft; Z98.890 Other specified postprocedural states; Z81.8 Family history of other mental and behavioral disorders; Z82.49 Family history of ischemic heart disease and other diseases of the circulatory system
CPT/HCPCS: 96361 ×2; 96374; 99285; 36415; 93005; 80053; 80048; 82150; 82009; 83605; 83690 ×2; 83735 ×2; 85025 ×2; 81001; 83036; 71046; 76700; G0378 ×2; C9113